=== PATIENT | male | born 1965 | race Caucasian/White ===

== ENCOUNTER 2019-03-07 07:25 | Day surgery (SDC) | payer BC ==
[~2019-03-07] VITALS: Ht 160 cm; Wt 85.0 kg
[~2019-03-07 07:25] MED LIST: BUPIVACAINE-EPI 0.5%-1:200000 MPF 30 ML VIAL. INJ ONE; HYDROmorphone 2 MG/ML VIAL IV PRN; MORPHINE SULFATE 2 MG/ML VIAL. IV PRN; ONDANSETRON PF 4 MG/2 ML VIAL. IV PRN; PROCHLORPERAZINE 10 MG/2 ML VIAL. IV PRN; fentaNYL PF VIAL 100 MCG/2 ML VIAL IV PRN
[2019-03-07] MEDS ORDERED: LIDOCAINE WITH 8.4% SOD BICARB 3 ML DISP.SYRIN. INJ ONE (08:00)
[2019-03-07] MEDS ORDERED: METF500T16 PO (08:11)
[2019-03-07] MEDS ORDERED: ATOR20TA58 PO (08:12)
[2019-03-07] MEDS ORDERED: IBUP-1027 PO (08:12)
[2019-03-07] MEDS ORDERED: ASPI-630 PO (08:12)
[2019-03-07] MEDS: IV RINGERS,LACTATED 1000ML 1,000 ML IV SCH ×2 (08:15→11:54)
[2019-03-07] MEDS ORDERED: INSULIN LISPRO 100 UNIT/ML 3ML VIAL for OP,RR ONLY. SQ PRN (08:15)
[2019-03-07] MEDS ORDERED: LIDOCAINE 2% PF 5 ML VIAL. ONE (09:05)
[2019-03-07] MEDS ORDERED: DEXAMETHASONE SOD PHOS 4 MG/ML VIAL ONE (09:05)
[2019-03-07] MEDS ORDERED: PROPOFOL 20 ML IV ONE (09:05)
[2019-03-07] MEDS ORDERED: ONDANSETRON PF 4 MG/2 ML VIAL. ONE (09:05)
[2019-03-07] MEDS ORDERED: fentaNYL PF VIAL 250 MCG/5 ML VIAL ONE (09:06)
[2019-03-07] MEDS ORDERED: ROCURONIUM 50 MG/5 ML VIAL. ONE (09:06)
[2019-03-07] MEDS ORDERED: ISOSULFAN BLUE 50 MG/5 ML VIAL. SQ ONE (09:21)
[2019-03-07] MEDS ORDERED: BUPIVACAINE-EPI 0.5%-1:200000 MPF 30 ML VIAL. INJ ONE (11:00)
[2019-03-07] MEDS ORDERED: SEVOFLURANE > 120 MINUTES. IH ONE (11:28)
[2019-03-07] MEDS ORDERED: NEOSTIGMINE METHYLSULFATE 5 MG/5 ML SYRINGE. ONE (11:37)
[2019-03-07] MEDS ORDERED: GLYCOPYRROLATE 1 MG/5 ML VIAL. ONE (11:38)
[2019-03-07] MEDS ORDERED: ceFAZolin 2GM PREMIX 2 GM/50 ML BAG IV ONE (12:00)
--- NOTE | 2019-03-07 12:05 | DISCH ---
DISCHARGE INSTRUCTIONS Condition on Discharge Condition on Discharge: Stable Activity After Discharge Activity Instructions for Disc: Activity as tolerated, Avoid exertion Lifting Instructions after Dis: No heavy lifting Driving Instructions after Dis: Do not drive today Diet after Discharge Diet after Discharge: Regular Wound Incision Care Wound/Incision Care: Ice to area for comfort Other wound/incision instructi: november shower Tuesday Follow-Up Follow up with: Abimael's office Tuesday with ROSA output report COLLINS MILAN MD Mar 07, 2019 12:05
--- NOTE | 2019-03-07 12:16 | PDOC ---
BRIEF OPERATIVE NOTE Date: Mar 07, 2019 Pre-Op Diagnosis melanoma Post-Op Diagnosis same Procedure Performed left axillary SLN biopsy wide excision left flank melanoma Surgeon Abimael Power Mule Operator Reta GUPTA Anesthesia Type: General Blood Loss 25cc IV Fluid 1500cc Specimens Obtained left axillary SLN, "hot" and blue, second LN, some axillary tissue wide excision left flank melanoma, suture at three o'clock Findings negative SLN Complications none Operative Note Wk # [id number] COLLINS MILAN MD Mar 07, 2019 12:16
[2019-03-07] MEDS ORDERED: HYDR-3164 PO (12:24)
[2019-03-07] MEDS ORDERED: DOCU-109 PO (12:24)
[2019-03-07] MEDS ORDERED: HYDROcodone/APAP 5/325MG 1 TAB TABLET PO ONE (12:30)
--- NOTE | 2019-03-07 12:31 | OP ---
DATE OF SURGERY: 03/07/2019 PREOPERATIVE DIAGNOSIS: Melanoma, left flank. POSTOPERATIVE DIAGNOSIS: Melanoma, left flank. PROCEDURES: 1. Left axillary sentinel lymph node biopsy. 2. Wide excision of left flank melanoma. SURGEON: Alverto Milan MD ETL DEVELOPER: CANDY Morales ANESTHESIA: General endotracheal. BLOOD LOSS: 25. INTRAVENOUS FLUIDS: 1500. INDICATIONS: The patient is a 53-year-old with a recent excision of a nodular melanoma, left flank. He is brought for wide excision and sentinel node biopsy. OPERATIVE REPORT: The patient went to Nuclear Medicine Department and underwent injection for sentinel node identification. Activity was seen in the left axilla. He was then brought to the OR, given a general anesthetic and rolled up on his right side. The area around the previous excision was prepped and 5 mL of Lymphazurin injected intradermally. The area gently massaged for 3 minutes. Back to supine, the left axilla was prepped and draped in usual sterile fashion. A 0.5% Marcaine with epinephrine was used to infiltrate the skin and subcutaneous tissue along the incision line after using the C-Trak to help localize the area of interest. Incision made and dissection carried down through some generous axillary tissue to a point where we identified a "hot" slightly blue node, which was harvested and sent for frozen section. A node of similar size that was not active or blue was sent prior to the sentinel node and it too was negative. Area checked for hemostasis. A 19-Italian round Armen drain brought through an inferolateral stab wound, sewn to the skin with silk stitch and left in the depths of the axilla for postoperative drainage. When a correct sponge count was obtained, the incision was closed with a subcuticular 4-0 Monocryl. Steri-Strips and a sterile dressing applied. The patient then placed in the lateral decubitus position and the left flank was prepped and draped in usual sterile fashion. A marking pen was used to outline the elliptical incision to allow for 2 cm margins around the process. The area was infiltrated with local anesthetic and incised. The skin, subcutaneous tissue down to the muscle was excised en bloc and marked with a stitch at 3 o'clock. When hemostasis was obtained, the wound was closed in layers using 3-0 Vicryl in the subcutaneous tissue, interrupted 3-0 and 4-0 Prolene sutures in the skin. Sterile dressing applied. The patient returned to supine, awakened from his anesthetic and taken to the recovery room in satisfactory condition. ALVERTO MILAN MD DR: PAVAN/rajesh JOB#: [id number] / [id number]
[2019-03-07] MEDS ORDERED: KETOROLAC 30 MG/ML VIAL. ONE (12:55)
[2019-03-07] MEDS ORDERED: KETOROLAC 15 MG/ML VIAL. IV ONE (13:00)
[2019-03-07] MEDS: fentaNYL PF VIAL 100 MCG/2 ML VIAL IV PRN ×2 (13:00→13:19)
[2019-03-07 13:30] VITALS: BP 129/71
--- NOTE | 2019-03-07 15:18 | RAD ---
Examination: SENTINEL NODE INJECTION History: Melanoma; left flank skin lesion Comparison/Correlation: None Findings: Cleansing with Betadine was performed about the left mid flank skin wound. A total of 0.8 mCi technetium 99m filtered sulfur colloid with 0.5 cc 1 percent buffered lidocaine was administered in nearly 4 equal portions about the wound intradermally. Imaging was then performed. Radiotracer accumulates of the left axillary level on a lateral image provided. Impression: Successful intradermal administration of radiotracer about the left flank skin wound. Radiotracer and calculation at the left lower axillary level noted. Electronically signed by: Neal Watkins MD (03/07/2019 3:15 PM) [facility]
--- NOTE | 2019-03-14 14:07 | PATHOLOGY ---
[facility] Accession Number: [id number] . 01 Material submitted: . PART A: lymph node - LEFT AXILLARY NODE,FS PART B: lymph node - LEFT AXILLARY SENTINEL NODE,FS PART C: lymph node - LEFT AXILLARY TISSUE PART D: flank - WIDE EXCISION MELANOMA LEFT FLANK SUTURE 3:00. Modifiers: left . 01 Clinical history: . Left flank melanoma . 02 Frozen section diagnosis: . INTRAOPERATIVE CONSULTATION WITH FROZEN SECTION: (Sunny Rene M.D.) . FSA1. Left axillary lymph node, excision: - Negative for tumor. . The results are reported to Dr. Varghese in the operating room. . FSB1. Left axillary sentinel node, excision: - Negative for tumor. . The results are reported to Dr. Varghese in the operating room. . . GROSS DESCRIPTION: A. The specimen is received fresh for intraoperative consultation and is designated "left axillary lymph node fresh for frozen". This consists of an ovoid segment of yellow-red, fatty appearing tissue measuring up to 3.0 x 2.1 x 1.2 cm in greatest dimension. Sectioning reveals a yellow, fatty appearing lymph node measuring up to nearly 3.0 cm in greatest dimension. There is a thin, peripheral rim of pink-thomas cortex. There is no gross evidence of tumor replacement. One-half of the lymph node is submitted for frozen section as FSA1. The tissue remaining from frozen section is submitted for permanent sections as A1. The remainder of the lymph node is submitted for microscopy as A2. . B. The specimen is received fresh for intraoperative consultation and is designated "left axillary sentinel lymph node". This consists of an ovoid segment of yellow-red, fatty tissue measuring up to 3.0 x 2.0 x 1.2 cm in greatest dimension. Sectioning reveals a fatty lymph node measuring up to 1.9 cm in greatest dimension having a thin rim of pink-moreau cortex. There is no gross evidence of tumor replacement. One-half of the specimen is submitted for frozen section as FSB1. The tissue remaining from frozen section is submitted for permanent sections as B1. The remainder of the lymph node is submitted for microscopy as B2. (JPM/db; 03/07/2019) . Frozen section performed at [facility], [address] [place] [id number]. GAURAV/LULU . 02 Diagnosis: A. Lymph node, left axillary lymph node, excision: - Negative for tumor. . B. Lymph node, left axillary sentinel node, excision: - Negative for tumor. . C. Lymph nodes (3), left axilla: - Negative for tumor. . D. Skin and subcutaneous tissue, left flank wide excision: - No residual invasive malignant melanoma or melanoma in situ identified. - Margins of excision free of neoplasm. - Healing previous excision site showing depressed area of ulceration with granulation tissue and acute inflammation, and reactive fibrosis, subcutaneous fat necrosis, chronic inflammation, and foreign body giant cell and suture granulomatous reaction. . (JPM:franky/jamil; 03/14/2019) [facility]/03/14/2019 . 02 Comment: Sections of the left axillary node (A) and left axillary sentinel node (B) biopsies are examined at multiple levels. In addition, a battery of immunoperoxidase stains to rule out metastatic melanoma are obtained on each of the nodes and yield the following results: S-100 (A1): Negative for tumor. MART1 (A1): Negative for tumor. Pelaez mike red (A1): Negative for tumor. . S-100 (A2): Reticulum cells focally positive; negative for tumor. MART1 (A2): Negative for tumor. Pelaez mike red (A2): Negative for tumor. . S-100 (B1): Negative for tumor. MART1 (B1): Negative for tumor. Pelaez mike red (B1): Negative for tumor. . S-100 (B2): Reticulum cells focally positive; negative for tumor. MART1 (B2): Negative for tumor. Pelaez mike red (B2): Negative for tumor. . In addition, sections of left axillary tissue (C) reveal 3 additional lymph nodes, all of which are negative for tumor. . Thus, there are a total of 5 axillary lymph nodes which are negative for metastatic melanoma. . Sections of the left flank wide re-excision reveal a healing previous excision site. There is no residual invasive malignant melanoma or melanoma in situ. The margins of excision are free of neoplasm. (JPM:jamil; 03/14/2019) . Special stains performed: Immunoperoxidase stains for S-100, MART1, pelaez mike red on A1. Immunoperoxidase stains for S-100, MART1, pelaez mike red on A2. Immunoperoxidase stains for S-100, MART1, pelaez mike red on B1. Immunoperoxidase stains for S-100, MART1, pelaez mike red on B2. . 02 Electronically signed: . Calixto Rene MD, Pathologist NPI- [id number] . 01 Gross description: . A and B. SEE FROZEN SECTION GROSS DESCRIPTION. . C. The specimen is received in formalin, labeled "Isiah Quintanilla, left axillary tissue". Received are multiple segments of bright yellow lobulated tissue measuring 7.7 x 5.6 x 2.8 cm in aggregate dimensions. Dissection and palpation of the specimen reveals three possible lymph nodes ranging in size from 0.5 to 1.4 cm in maximum dimensions. The possible lymph nodes are submitted as follows: . C1 two intact possible lymph nodes C2 one bisected lymph node. . D. The specimen is received in formalin, labeled "Isiah Quintanilla, wide excision melanoma left flank, suture 3:00". Received is an oriented ellipse of skin with attached underlying fibroadipose tissue measuring 10.5 x 6.7 x 4.1 cm in greatest dimensions with a suture placed at one tip designating this as the 3:00 margin. The surgical margins are inked as follows: 12 to 3:00-yellow, 3 to 9:00, as well as the deep margin-black, and 9 to 12:00-blue. The epidermal surface displays a well-circumscribed, depressed, flaky and pale thomas to moreau-thomas previous biopsy site measuring 3.0 x 1.1 cm. This site is 2.0 cm from the 12:00 margin, 4.1 cm from the 3:00 margin, 1.8 cm from the 6:00 margin, and 3.5 cm from the 9:00 margin. At the 12:00 aspect, there is a secondary lesion which is well-circumscribed, slightly raised and pale pink measuring 0.3 x 0.2 cm, which is 0.2 cm from the peripheral margin. Sectioning through the remainder of the specimen reveals bright yellow to blue cut surfaces. A large amount of residual blue dye is present. Abnormal pigmentation is not grossly identified. The specimen is submitted representatively as follows: . D1 longitudinal section through 3:00 and 9:00 aspect D-D17 entire previous biopsy site submitted from 3:00 to 9:00 aspects, with each segment eventually bisected into 12:00 and 6:00 aspects D18 secondary lesion near 12:00 aspect. (CAA; 03/08/2019) QAC/QAC . 02 Pathologist provided ICD-10: C43.59, L08.9, L98.499, L90.5 . 02 CPT . 616563, 176742, 602986, 294579, 523104, 090226, [id number], [id number] Specimen Comment: A courtesy copy of this report has been sent to Specimen Comment: [phone], . Specimen Comment: Report sent to and Performed at: 01 [facility] [address], [place], [place] [id number] MD Bjorn Puga MD Phone: [phone] Performed at: 02 [facility] [address] [place], [place] [id number] MD Calixto Rene MD Phone: [phone]
== END 2019-03-07 14:12 | disposition home or self-care (01) ==
LOC: SURG 07:25
PROVIDERS: ATTEND Surgery
DX: C43.59 Malignant melanoma of other part of trunk (principal); R59.1 Generalized enlarged lymph nodes; E11.9 Type 2 diabetes mellitus without complications; E78.5 Hyperlipidemia, unspecified; G47.30 Sleep apnea, unspecified; Z79.899 Other long term (current) drug therapy; Z79.84 Long term (current) use of oral hypoglycemic drugs
CPT/HCPCS: 11602; 12031; 38525; 38792; 82962; 96374; A7015; A9541; J0696; J1100; J1885; J2001; J2405; J2704; J2710; J3010; J3490; J7120; Q9968

== ENCOUNTER 2019-11-21 20:31 | Inpatient (IN) | payer BC ==
[~2019-11-21] VITALS: Ht 160 cm; Wt 79.4 kg
[~2019-11-21 20:31] MED LIST changes: +ASPI-630 PO; +ATOR20TA58 PO; -BUPIVACAINE-EPI 0.5%-1:200000 MPF 30 ML VIAL. INJ ONE; +DOCU-109 PO; +HYDR-3164 PO; -HYDROmorphone 2 MG/ML VIAL IV PRN; +IBUP-1027 PO; +METF500T16 PO; -MORPHINE SULFATE 2 MG/ML VIAL. IV PRN; -ONDANSETRON PF 4 MG/2 ML VIAL. IV PRN; -PROCHLORPERAZINE 10 MG/2 ML VIAL. IV PRN; -fentaNYL PF VIAL 100 MCG/2 ML VIAL IV PRN
--- NOTE | 2019-11-21 21:27 | PHYS DOC ---
Past Medical History Past Medical History: Diabetes-Type II Smoking Status: Never Smoker Alcohol Use: None General Adult EDM: Chief Complaint: FLANK PAIN HPI: HPI: Patient is a 54 year old male who presents with complaint of right flank pain that started yesterday. Patient was seen at urgent care earlier today and they told him that they thought it could be a kidney stone. When asked where he has the pain, patient points to his lateral hip around the greater trochanter. He rates the pain is bad but is unable to attach a number to the pain. [] Review of Systems: Review of Systems: Constitutional: Denies fever or chills. [] Respiratory: Denies cough or shortness of breath. [] Cardiovascular: Denies chest pain or edema. [] GI: Denies abdominal pain, nausea, vomiting or diarrhea. [] Musculoskeletal: Complains of right flank/hip pain. [] Integument: Denies rash. [] Neurologic: Denies headache, focal weakness or sensory changes. [] A full 10 point review of systems has been reviewed and is otherwise negative. Heart Score: Risk Factors: Risk Factors: DM, Current or recent (<one month) smoker, HTN, HLP, family history of CAD, obesity. Risk Scores: Score 0 - 3: 2.5% MACE over next 6 weeks - Discharge Home Score 4 - 6: 20.3% MACE over next 6 weeks - Admit for Clinical Observation Score 7 - 10: 72.7% MACE over next 6 weeks - Early Invasive Strategies Current Medications: Current Medications Medications (Trade) Dose Ordered Sig/Gonzalo Start Time Stop Time Status Last Admin Dose Admin Ondansetron HCl (Zofran) 4 mg 1X ONCE 11/21/19 21:30 11/21/19 21:31 UNV Sodium Chloride 1,000 ml @ 1,000 mls/hr Q1H 11/21/19 21:18 11/21/19 22:17 UNV Allergies: Allergies: Allergies Coded Allergies Type Severity Reaction Last Updated Verified No Known Drug Allergies 03/07/19 No Physical Exam: PE: Constitutional: Well developed, well nourished, no acute distress, non-toxic appearance. [] HENT: Normocephalic, atraumatic, bilateral external ears normal, oropharynx moist, no oral exudates, nose normal. [] Eyes: PERRLA, EOMI, conjunctiva normal, no discharge. [] Neck: Normal range of motion, no tenderness, supple. [] Cardiovascular: Regular rate and rhythm [] Lungs & Thorax: Bilateral breath sounds clear to auscultation [] Abdomen: Bowel sounds normal, soft, no tenderness. [] Skin: Warm, dry, no erythema, no rash. [] Extremities: No tenderness, no cyanosis, no clubbing, ROM intact. [] Neurologic: Alert and oriented X 3, no focal deficits noted. [] Current Patient Data: Vital Signs: Vital Signs Date Time Temp Pulse Resp B/P (MAP) Pulse Ox O2 Delivery O2 Flow Rate FiO2 11/21/19 20:45 98.1 82 24 132/87 (102) 94 Room Air 98.1 EKG: EKG: [] Radiology/Procedures: Radiology/Procedures: [] Impression: PROCEDURE: CT ABDOMEN PELVIS WO CONTRAST INDICATION: Right flank pain COMPARISON: None. TECHNIQUE: Axial CT images obtained through the abdomen and pelvis without contrast. Limited assessment of solid organ structures and vasculature secondary to lack of intravenous contrast.. One or more of the following individualized dose reduction techniques were utilized for this examination: 1. Automated exposure control; 2. Adjustment of the mA and/or kV according to patient size; 3. Use of iterative reconstruction technique. FINDINGS: Multiple bilateral lung base masses are identified. For example one of the largest 1's at the right lung base measures up to 18 mm and one of the largest 1's at the left lung base measures 14 mm. Abdominal aorta is not aneurysmal. Small fat-containing left greater than right inguinal hernia. Limited assessment of solid organ structures and vasculature but there is diffuse heterogeneity of the liver with numerous low-density masses seen scattered throughout both lobes of the liver with the liver appearing enlarged. Pancreas not well evaluated without contrast. Spleen does not appear grossly enlarged. Left adrenal nodules measuring up to about 2 cm. There is a couple of 1 mm calcifications at the left kidney which could be from nonobstructive stones. No left-sided hydronephrosis. Urinary bladder partially distended at time of exam with calcification along the anterior wall. No right-sided hydronephrosis. Colonic diverticulosis. There is some high density material in the appendix which could be from appendicoliths without evidence of appendiceal inflammation. No dilated loops of bowel to suggest obstruction. Lymphadenopathy within the upper abdomen most severe within the retroperitoneum. For example right suprarenal region posterior to the inferior vena cava there is a mass measuring up to about 3.5 cm. There are several additional masses including adjacent to the pancreas. Multiple lytic lesions are identified within the osseous structures. This includes within the spine including at L4 and L5 where there is a destructive lesion at L4 measuring up to about 3.3 cm with associated compression fracture and additional lytic lesion measuring approximately 2 cm at L5. Mild compression fracture at T12 vertebral body. IMPRESSION: * Multiple masses at the bilateral lung bases as well as numerous masses within the liver, lymphadenopathy within the abdomen as well as multiple lesions within the osseous structures. This constellation of findings is concerning for metastatic disease. There is associated pathologic compression fracture at the L4 vertebral body. There are some additional regions of patchy osseous demineralization including within the pelvis and bilateral femur as well as elsewhere within the spine. Portions of this could be secondary to osteopenia however given the widespread lesions elsewhere additional tumor deposits could be contributing to this appearance including within the right acetabular region where there is a lytic area measuring up to about 25 mm which could be from additional tumor deposits. Report called to the ER at 10:04 PM on date of exam. Electronically signed by: Birdie Leos MD (11/21/2019 10:10 PM) [id number] DICTATED and SIGNED BY: BIRDIE LEOS MD DATE: 11/21/192209 Course & Med Decision Making: Course & Med Decision Making Pertinent Labs and Imaging studies reviewed. (See chart for details) [] Dragon Disclaimer: Dragon Disclaimer: This electronic medical record was generated, in whole or in part, using a voice recognition dictation system. Departure Departure Impression: Primary Impression: Compression fracture of L4 vertebra Qualified Codes: S32.040A - Wedge compression fracture of fourth lumbar vertebra, initial encounter for closed fracture Additional Impressions: Metastatic neoplastic disease Right flank pain Low back pain Qualified Codes: M54.5 - Low back pain Disposition: 09 ADMITTED INPATIENT Admitting Physician: HIMS Condition: IMPROVED Referrals: PAULINE MURILLO MD (PCP) ALEJANDRO STAFFORD Jr. DO November 21, 2019 21:27
[2019-11-21 21:29] LABS: BILIRUBIN,URINE NEGATIVE (NEG); CLARITY,URINE CLEAR; COLOR,URINE YELLOW; NITRITE,URINE NEGATIVE (NEG); PROTEIN,URINE 30 mg/dL (NEG-TRACE)
[2019-11-21] MEDS ORDERED: ONDANSETRON PF 4 MG/2 ML VIAL. IVP ONE (21:30)
[2019-11-21] MEDS ORDERED: KETOROLAC 30 MG/ML VIAL. IVP ONE (21:30)
[2019-11-21] MEDS ORDERED: IV NORMAL SALINE 1000ML BAG 1,000 ML IV SCH (21:30)
[2019-11-21 21:32] LABS: SQUAMOUS EPITHELIAL CELL,UR OCC /LPF
[2019-11-21 21:33] LABS: BACTERIA,URINE 0 /HPF (0-FEW); SPERM,URINE PRESENT /HPF; WBC,URINE 0 /HPF (0-4)
[2019-11-21 21:45] LABS: BASO % 1 % (0-3); EOS # 0.1 x10^3/uL (0.0-0.7); EOS % 1 % (0-3); HEMATOCRIT 38.9 % (39.0-53.0); HEMOGLOBIN 13.1 g/dL (13.0-17.5); LYMPH # 0.9 x10^3/uL (1.0-4.8); LYMPH % 13 % (24-48); MEAN CORPUSCULAR HEMOGLOBIN 30 pg (25-35); MEAN CORPUSCULAR HGB CONC 34 g/dL (31-37); MEAN CORPUSCULAR VOLUME 88 fL (79-100); MONO # 0.6 x10^3/uL (0.0-1.1); MONO % 9 % (0-9); NEUT # 5.3 x10^3/uL (1.8-7.7); NEUT % 77 % (31-73); PLATELET COUNT 364 x10^3/uL (140-400); RED BLOOD COUNT 4.45 x10^6/uL (4.30-5.70); RED CELL DISTRIBUTION WIDTH 13.5 % (11.5-14.5); WHITE BLOOD COUNT 6.9 x10^3/uL (4.0-11.0)
[2019-11-21 21:57] LABS: CALCIUM 8.3 mg/dL (8.5-10.1); CREATININE 0.7 mg/dL (0.7-1.3); GFR 117.5; POTASSIUM 3.3 mmol/L (3.5-5.1)
[2019-11-21 22:03] LABS: ALBUMIN 2.9 g/dL (3.4-5.0); ALBUMIN/GLOBULIN RATIO 0.7 (1.0-1.7); TOTAL BILIRUBIN 0.4 mg/dL (0.2-1.0)
--- NOTE | 2019-11-21 22:14 | RAD ---
INDICATION: Right flank pain COMPARISON: None. TECHNIQUE: Axial CT images obtained through the abdomen and pelvis without contrast. Limited assessment of solid organ structures and vasculature secondary to lack of intravenous contrast.. One or more of the following individualized dose reduction techniques were utilized for this examination: 1. Automated exposure control; 2. Adjustment of the mA and/or kV according to patient size; 3. Use of iterative reconstruction technique. FINDINGS: Multiple bilateral lung base masses are identified. For example one of the largest 1's at the right lung base measures up to 18 mm and one of the largest 1's at the left lung base measures 14 mm. Abdominal aorta is not aneurysmal. Small fat-containing left greater than right inguinal hernia. Limited assessment of solid organ structures and vasculature but there is diffuse heterogeneity of the liver with numerous low-density masses seen scattered throughout both lobes of the liver with the liver appearing enlarged. Pancreas not well evaluated without contrast. Spleen does not appear grossly enlarged. Left adrenal nodules measuring up to about 2 cm. There is a couple of 1 mm calcifications at the left kidney which could be from nonobstructive stones. No left-sided hydronephrosis. Urinary bladder partially distended at time of exam with calcification along the anterior wall. No right-sided hydronephrosis. Colonic diverticulosis. There is some high density material in the appendix which could be from appendicoliths without evidence of appendiceal inflammation. No dilated loops of bowel to suggest obstruction. Lymphadenopathy within the upper abdomen most severe within the retroperitoneum. For example right suprarenal region posterior to the inferior vena cava there is a mass measuring up to about 3.5 cm. There are several additional masses including adjacent to the pancreas. Multiple lytic lesions are identified within the osseous structures. This includes within the spine including at L4 and L5 where there is a destructive lesion at L4 measuring up to about 3.3 cm with associated compression fracture and additional lytic lesion measuring approximately 2 cm at L5. Mild compression fracture at T12 vertebral body. IMPRESSION: * Multiple masses at the bilateral lung bases as well as numerous masses within the liver, lymphadenopathy within the abdomen as well as multiple lesions within the osseous structures. This constellation of findings is concerning for metastatic disease. There is associated pathologic compression fracture at the L4 vertebral body. There are some additional regions of patchy osseous demineralization including within the pelvis and bilateral femur as well as elsewhere within the spine. Portions of this could be secondary to osteopenia however given the widespread lesions elsewhere additional tumor deposits could be contributing to this appearance including within the right acetabular region where there is a lytic area measuring up to about 25 mm which could be from additional tumor deposits. Report called to the ER at 10:04 PM on date of exam. Electronically signed by: Vazquez Leos MD (11/21/2019 10:10 PM) [id number]
[2019-11-21] MEDS ORDERED: ONDANSETRON PF 4 MG/2 ML VIAL. IV PRN (23:30)
--- NOTE | 2019-11-22 00:42 | NUR ---
The patient, DAFNE ALLEN, 54 y/o, M admitted by FITZ ISRAEL MD, was given written information regarding hospital policies, unit procedures and contact persons. Valuables were checked and vital signs stable. Report taken from Shae CATHERINE
[2019-11-22 03:00] VITALS: BP 132/95
[2019-11-22] MEDS: MORPHINE SULFATE 4 MG/ML VIAL. IV PRN (04:51)
[2019-11-22] MEDS ORDERED: DEXTROSE 50% 25 GM / 50ML DISP.SYRIN. IV PRN (06:00)
[2019-11-22 07:00] VITALS: BP 103/77
[2019-11-22] MEDS: HYDROcodone/APAP 5/325MG 1 TAB TABLET PO PRN ×4 (07:22→20:49)
[2019-11-22] MEDS: INSULIN LISPRO 300 UNITS/3 ML VIAL. SQ SCH ×4 (07:30→20:50)
--- NOTE | 2019-11-22 08:00 | NUR ---
assumed care from Lisandra. he is complaining of pain in his right flank area. denies abdominal; pain or pain in other areas. states pain pill helped. his sister in law; Dilcia spoke with him and Dr. Fairchild regarding plan of care; biopsy
[2019-11-22] MEDS: fentaNYL 12MCG/HR PATCH 1 PATCH PATCH.TD72 TD SCH (08:28)
[2019-11-22] MEDS: DOCUSATE SODIUM 100 MG CAPSULE. PO SCH ×2 (08:28→20:49)
[2019-11-22] MEDS: ASPIRIN CHEWABLE 81 MG TABLET. PO SCH (08:28)
--- NOTE | 2019-11-22 09:39 | PDOC1 ---
History and Physical Date of Admission Date of Admission DATE: 11/22/19 TIME: 09:23 Identification/Chief Complaint Chief Complaint flank pain and back pain Problems: (1) Compression fracture of L4 vertebra (2) Metastatic neoplastic disease (3) Right flank pain (4) Low back pain Source Source: Chart review, Patient History of Present Illness History of Present Illness This is a 54 year old CM hx of DM, HLD who presents with left sided flank pain and back pain that started days ago. seen by urgent care today and thought to be a kidney stone, asked to come to ED for evaluation. patient reports more lateral hip pain. denies any other complaints. no chest pain, sob nausea vomiting diarrhea. no fevers weight loss, respiratory symptoms, neurological symptoms. states he feels better after pain meds. denies smoking drugs or etoh. unclear of when he last had colo screening, does not know family hx of cancer. in the ED patient had the CT abdomen and pelvis done which revealed the following: Multiple masses at the bilateral lung bases as well as numerous masses within the liver, lymphadenopathy within the abdomen as well as multiple lesions within the osseous structures. This constellation of findings is concerning for metastatic disease. There is associated pathologic compression fracture at the L4 vertebral body. There are some additional regions of patchy osseous demineralization including within the pelvis and bilateral femur as well as elsewhere within the spine. Portions of this could be secondary to osteopenia however given the widespread lesions elsewhere additional tumor deposits could be contributing to this appearance including within the right acetabular region where there is a lytic area measuring up to about 25 mm which could be from additional tumor deposits. hospitalist called for admission and further evaluation. Past Medical History Past Medical History dm, hld Past Surgical History Past Surgical History denies Family History Family History reviewed and denies Social History Smoke: No ALCOHOL: none Drugs: None Current Problem List Problem List Problems Medical Problems: (1) Compression fracture of L4 vertebra Status: Acute (2) Low back pain Status: Acute (3) Metastatic neoplastic disease Status: Acute (4) Right flank pain Status: Acute Current Medications Current Medications Current Medications Sodium Chloride 1,000 ml @ 1,000 mls/hr Q1H IV Last administered on 11/21/19at 21:54; Start 11/21/19 at 21:30; Stop 11/21/19 at 22:29; Status DC Ondansetron HCl (Zofran) 4 mg 1X ONCE IVP Last administered on 11/21/19at 21:54; Start 11/21/19 at 21:30; Stop 11/21/19 at 21:31; Status DC Ketorolac Tromethamine (Toradol 30mg Vial) 30 mg 1X ONCE IVP Last administered on 11/21/19at 21:55; Start 11/21/19 at 21:30; Stop 11/21/19 at 21:31; Status DC Ondansetron HCl (Zofran) 4 mg PRN Q8HRS PRN IV NAUSEA/VOMITING; Start 11/21/19 at 23:30; Stop 11/22/19 at 06:04; Status DC Morphine Sulfate (Morphine Sulfate) 4 mg PRN Q2HR PRN IV PAIN Last administered on 11/22/19at 04:51; Start 11/21/19 at 23:30 Ondansetron HCl (Zofran) 4 mg PRN Q4HRS PRN IV NAUSEA/VOMITING; Start 11/22/19 at 06:00 Aspirin (Aspirin Chewable) 81 mg DAILYWBKFT PO Last administered on 11/22/19at 08:28; Start 11/22/19 at 08:00 Atorvastatin Calcium (Lipitor) 20 mg HS PO ; Start 11/22/19 at 21:00 Docusate Sodium (Colace) 100 mg BID PO Last administered on 11/22/19at 08:28; Start 11/22/19 at 09:00 Acetaminophen/ Hydrocodone Bitart (Lortab 5/325) 1 tab PRN Q4HRS PRN PO MODERATE PAIN 4-6 Last administered on 11/22/19at 07:22; Start 11/22/19 at 06:00 Ibuprofen (Motrin) 400 mg PRN Q6HRS PRN PO INFLAMMATION; Start 11/22/19 at 06:00 Fentanyl (Duragesic 12mcg/ Hr Patch) 1 patch Q3DAYS TD Last administered on 11/22/19at 08:28; Start 11/22/19 at 09:00 Enoxaparin Sodium (Lovenox 40mg Syringe) 40 mg Q24H SQ Last administered on 11/22/19at 08:35; Start 11/22/19 at 10:00 Insulin Human Lispro (HumaLOG) 0-7 UNITS TIDACHC SQ ; Start 11/22/19 at 07:30 Dextrose (Dextrose 50%-Water Syringe) 12.5 gm PRN Q15MIN PRN IV SEE COMMENTS; Start 11/22/19 at 06:00 Active Scripts Active Reported Colace (Docusate Sodium) 100 Mg Capsule 1 Cap PO BID [place] 5-325 Tablet (Acetaminophen/Hydrocodone Bitart) 1 Each Tablet 1 Tab PO Q4- 6HRS Ibuprofen 400 Mg Tablet 400 Mg PO PRN Q6HRS PRN Atorvastatin Calcium 20 Mg Tablet 1 Tab PO DAILY Aspirin 81 Mg Tab.chew 1 Tab PO DAILY Metformin Hcl 500 Mg Tablet 500 Mg PO BIDWMEALS Allergies Allergies: Coded Allergies: No Known Drug Allergies (Unverified , 03/07/19) ROS Review of System CONSTITUTIONAL: No fever or chills EYES: No recent changes SKIN: No rash or itching CARDIOVASCULAR: No chest pain, syncope, palpitations, or edema RESPIRATORY: No SOB or cough GASTROINTESTINAL: No nausea, vomiting or abdominal pain NEUROLOGICAL: No headaches or weakness ENDOCRINE: No cold or heat intolerance GENITOURINARY: No urgency or frequency of urination MUSCULOSKELETAL: No back pain or joint pain LYMPHATICS: No enlarged lymph nodes PSYCHIATRIC: No anxiety or depression Physical Exam Physical Exam GENERAL: No apparent distress. Alert and oriented. HEENT: Head normocephalic, atraumatic. NECK: Supple LUNGS: Clear to auscultation. HEART: RRR, S1, S2 present, pulses intact ABDOMEN: Soft, positive bowel sounds. EXTREMITIES: No cyanosis or edema. NEUROLOGIC: Normal speech, normal tone PSYCHIATRIC: Normal affect, normal mood. SKIN: No ulceration. Vitals Vitals Vital Signs Date Time Temp Pulse Resp B/P (MAP) Pulse Ox O2 Delivery O2 Flow Rate FiO2 11/22/19 08:38 Room Air 11/22/19 08:30 91 11/22/19 07:00 97.7 65 18 103/77 (86) 97.7 Labs Labs Laboratory Tests Test 11/21/19 20:35 11/21/19 21:35 11/22/19 07:50 Urine Collection Type Unknown Urine Color Yellow Urine Clarity Clear Urine pH 7.0 (<5.0-8.0) Urine Specific [place] 1.015 (1.000-1.030) Urine Protein 30 mg/dL (NEG-TRACE) Urine Glucose (UA) Negative mg/dL (NEG) Urine Ketones (Stick) Negative mg/dL (NEG) Urine Blood Small (NEG) Urine Nitrite Negative (NEG) Urine Bilirubin Negative (NEG) Urine Urobilinogen Dipstick 4.0 mg/dL (0.2 mg/dL) Urine Leukocyte Esterase Negative (NEG) Urine RBC 6-10 /HPF (0-2) Urine WBC 0 /HPF (0-4) Urine Squamous Epithelial Cells Occ /LPF Urine Bacteria 0 /HPF (0-FEW) Urine Mucus Slight /LPF Urine Sperm Present /HPF White Blood Count 6.9 x10^3/uL (4.0-11.0) Red Blood Count 4.45 x10^6/uL (4.30-5.70) Hemoglobin 13.1 g/dL (13.0-17.5) Hematocrit 38.9 % (39.0-53.0) Mean Corpuscular Volume 88 fL (79-100) Mean Corpuscular Hemoglobin 30 pg (25-35) Mean Corpuscular Hemoglobin Concent 34 g/dL (31-37) Red Cell Distribution Width 13.5 % (11.5-14.5) Platelet Count 364 x10^3/uL (140-400) Neutrophils (%) (Auto) 77 % (31-73) Lymphocytes (%) (Auto) 13 % (24-48) Monocytes (%) (Auto) 9 % (0-9) Eosinophils (%) (Auto) 1 % (0-3) Basophils (%) (Auto) 1 % (0-3) Neutrophils # (Auto) 5.3 x10^3/uL (1.8-7.7) Lymphocytes # (Auto) 0.9 x10^3/uL (1.0-4.8) Monocytes # (Auto) 0.6 x10^3/uL (0.0-1.1) Eosinophils # (Auto) 0.1 x10^3/uL (0.0-0.7) Basophils # (Auto) 0.0 x10^3/uL (0.0-0.2) Sodium Level 134 mmol/L (136-145) Potassium Level 3.3 mmol/L (3.5-5.1) Chloride Level 97 mmol/L (98-107) Carbon Dioxide Level 30 mmol/L (21-32) Anion Gap 7 (6-14) Blood Urea Nitrogen 26 mg/dL (8-26) Creatinine 0.7 mg/dL (0.7-1.3) Estimated GFR (Cockcroft-Gault) 117.5 BUN/Creatinine Ratio 37 (6-20) Glucose Level 149 mg/dL (70-99) Calcium Level 8.3 mg/dL (8.5-10.1) Total Bilirubin 0.4 mg/dL (0.2-1.0) Aspartate Amino Transf (AST/SGOT) 81 U/L (15-37) Alanine Aminotransferase (ALT/SGPT) 88 U/L (16-63) Alkaline Phosphatase 232 U/L (46-116) Total Protein 7.0 g/dL (6.4-8.2) Albumin 2.9 g/dL (3.4-5.0) Albumin/Globulin Ratio 0.7 (1.0-1.7) Glucose (Fingerstick) 101 mg/dL (70-99) Laboratory Tests Test 11/21/19 20:35 11/21/19 21:35 11/22/19 07:50 Urine Collection Type Unknown Urine Color Yellow Urine Clarity Clear Urine pH 7.0 (<5.0-8.0) Urine Specific [place] 1.015 (1.000-1.030) Urine Protein 30 mg/dL (NEG-TRACE) Urine Glucose (UA) Negative mg/dL (NEG) Urine Ketones (Stick) Negative mg/dL (NEG) Urine Blood Small (NEG) Urine Nitrite Negative (NEG) Urine Bilirubin Negative (NEG) Urine Urobilinogen Dipstick 4.0 mg/dL (0.2 mg/dL) Urine Leukocyte Esterase Negative (NEG) Urine RBC 6-10 /HPF (0-2) Urine WBC 0 /HPF (0-4) Urine Squamous Epithelial Cells Occ /LPF Urine Bacteria 0 /HPF (0-FEW) Urine Mucus Slight /LPF Urine Sperm Present /HPF White Blood Count 6.9 x10^3/uL (4.0-11.0) Red Blood Count 4.45 x10^6/uL (4.30-5.70) Hemoglobin 13.1 g/dL (13.0-17.5) Hematocrit 38.9 % (39.0-53.0) Mean Corpuscular Volume 88 fL (79-100) Mean Corpuscular Hemoglobin 30 pg (25-35) Mean Corpuscular Hemoglobin Concent 34 g/dL (31-37) Red Cell Distribution Width 13.5 % (11.5-14.5) Platelet Count 364 x10^3/uL (140-400) Neutrophils (%) (Auto) 77 % (31-73) Lymphocytes (%) (Auto) 13 % (24-48) Monocytes (%) (Auto) 9 % (0-9) Eosinophils (%) (Auto) 1 % (0-3) Basophils (%) (Auto) 1 % (0-3) Neutrophils # (Auto) 5.3 x10^3/uL (1.8-7.7) Lymphocytes # (Auto) 0.9 x10^3/uL (1.0-4.8) Monocytes # (Auto) 0.6 x10^3/uL (0.0-1.1) Eosinophils # (Auto) 0.1 x10^3/uL (0.0-0.7) Basophils # (Auto) 0.0 x10^3/uL (0.0-0.2) Sodium Level 134 mmol/L (136-145) Potassium Level 3.3 mmol/L (3.5-5.1) Chloride Level 97 mmol/L (98-107) Carbon Dioxide Level 30 mmol/L (21-32) Anion Gap 7 (6-14) Blood Urea Nitrogen 26 mg/dL (8-26) Creatinine 0.7 mg/dL (0.7-1.3) Estimated GFR (Cockcroft-Gault) 117.5 BUN/Creatinine Ratio 37 (6-20) Glucose Level 149 mg/dL (70-99) Calcium Level 8.3 mg/dL (8.5-10.1) Total Bilirubin 0.4 mg/dL (0.2-1.0) Aspartate Amino Transf (AST/SGOT) 81 U/L (15-37) Alanine Aminotransferase (ALT/SGPT) 88 U/L (16-63) Alkaline Phosphatase 232 U/L (46-116) Total Protein 7.0 g/dL (6.4-8.2) Albumin 2.9 g/dL (3.4-5.0) Albumin/Globulin Ratio 0.7 (1.0-1.7) Glucose (Fingerstick) 101 mg/dL (70-99) VTE Prophylaxis Ordered VTE Prophylaxis Devices: Yes VTE Pharmacological Prophylaxi: Yes Assessment/Plan Assessment/Plan ASSESSMENT Metastatic Cancer, unknown primary at this point. noted multile Multiple masses at the bilateral lung bases as well as numerous masses within the liver, lymphadenopathy within the abdomen as well as multiple lesions within the osseous structures. Pathologic compression fracture at the L4 vertebral body. DM2, non insulin dependent HLD, on statin therapy Pain secondary to bone mets Hypokalemia Hyponatremia Elevated LFTs PLAN - admit to medical floor - check MRI brain, CT chest, CT cervical, lumbar and thoracic spine - check CEA, PSA, CA19-9 - unclear who is on for oncology, will consult - IR consult placed for bx - stop statin given elevated LFTs - SSI - hold ASA, no cardiac hx. likely will need bx for tissue diagnosis - IV and PO pain meds available - attempted to call Dilcia per patient's request but no answer. her number is [phone] - dvt ppx: lovenox - FULL CODE Problem Qualifiers (1) Compression fracture of L4 vertebra: Encounter type: initial encounter Qualified Codes: S32.040A - Wedge compression fracture of fourth lumbar vertebra, initial encounter for closed fracture (2) Low back pain: Chronicity: unspecified Back pain laterality: right Sciatica presence: without sciatica Qualified Codes: M54.5 - Low back pain RIC JANE MD November 22, 2019 09:38
[2019-11-22] MEDS ORDERED: ENOXAPARIN 40 MG/0.4 ML SYRINGE. SQ SCH (10:00)
[2019-11-22 11:06] LABS: PROTHROMBIN TIME PATIENT 13.3 SEC (11.7-14.0)
--- NOTE | 2019-11-22 11:08 | NUR ---
SW following. Discussed with RN, pt from home alone, room air, regular diet. Possibility of a biopsy - Dr. Preston consulted. SW will continue to follow.
[2019-11-22 11:16] VITALS: BP 124/77
--- NOTE | 2019-11-22 12:14 | RAD ---
EXAM: CT Chest without IV contrast INDICATION: Metastatic cancer TECHNIQUE: Multi-detector row CT images were acquired from the thoracic inlet through the upper abdomen without the use of IV contrast. Sagittal and coronal images were acquired from the transaxial data. All CT scans performed at this facility utilize dose optimization techniques as appropriate to the exam, including the following: Automated exposure control and adjustment of the mA and/or KV according to patient size (this includes techniques or standardized protocols for targeted exams where dose is indication/reason for exam). COMPARISON: CT abdomen and pelvis without IV contrast of the previous day FINDINGS: The absence of IV contrast limits evaluation of soft tissue pathology. CARDIOVASCULAR: Unremarkable MEDIASTINUM & SHARON: Multiple mildly enlarged mediastinal lymph nodes are present including 9 mm short axis right lower paratracheal lymph node and 1.2 cm short axis subcarinal node. LUNGS: Numerous round nodules are present in both lungs in random distribution, largest in the right lower lobe measures 1.8 cm in diameter. PLEURAL SPACE: No pleural effusions or pneumothorax. OSSEOUS & SOFT TISSUE: Large left axillary mass measuring 3.8 cm likely represent an enlarged level 1 left axillary lymph node. ABDOMEN: Numerous hepatic hypodense masses in upper abdominal retroperitoneal and periportal adenopathy is present, evaluated in greater detail on previous day abdomen CT. IMPRESSION: Extensive anthony and pulmonary parenchymal metastatic disease. EXAM: CT Cervical Spine without IV contrast INDICATION: Metastatic cancer TECHNIQUE: Multi-detector row CT images were obtained through the cervical spine without the use of IV contrast. Post-processing sagittal and coronal reconstructed images were obtained for interpretation. All CT scans performed at this facility utilize dose optimization techniques as appropriate to the exam, including the following: Automated exposure control and adjustment of the mA and/or KV according to patient size (this includes techniques or standardized protocols for targeted exams where dose is indication/reason for exam). COMPARISON: CT chest same day FINDINGS: CRANIOCERVICAL JUNCTION: Unremarkable. ALIGNMENT: Mild reversal normal cervical lordosis. No listhesis OSSEOUS: No evidence of fracture or bone destruction. DISC SPACES: Mild degenerative changes with disc space narrowing and endplate ossific spurring, most conspicuous at C5-C6 and C6-C7 FACET JOINTS: Unremarkable. SPINAL CANAL: At least mild central canal narrowing is present at C5-C6 due to ossification of the posterior disc protrusion. NEUROFORAMINA: Unremarkable. SOFT TISSUES: Unremarkable. IMPRESSION: No evidence of metastatic disease to the cervical spine, Multilevel cervical degenerative spondylosis, most conspicuous at C5-C6 as described. EXAM: CT Thoracic Spine without IV contrast INDICATION: Metastatic cancer TECHNIQUE: Multi-detector row CT images were obtained through the thoracic spine without the use of IV contrast. Post-processing sagittal and coronal reconstructed images were obtained for interpretation. All CT scans performed at this facility utilize dose optimization techniques as appropriate to the exam, including the following: Automated exposure control and adjustment of the mA and/or KV according to patient size (this includes techniques or standardized protocols for targeted exams where dose is indication/reason for exam). COMPARISON: C-spine CT same day FINDINGS: ALIGNMENT: Alignment is within normal limits. OSSEOUS: Bones show mild diffuse coarsening of the trabeculae in a pattern suggesting mild demineralization or multiple intraosseous hemangiomas. DISC SPACES: Unremarkable. FACET JOINTS: Unremarkable. SPINAL CANAL: Unremarkable. NEUROFORAMINA: Unremarkable. SOFT TISSUES: Numerous pulmonary nodules and prominent mediastinal lymph nodes, compatible with metastatic disease. IMPRESSION: No evidence of thoracic spine metastatic disease. Evidence of mediastinal and pulmonary metastatic disease. EXAM: CT Lumbar Spine without IV contrast INDICATION: Metastatic cancer TECHNIQUE: Multi-detector row CT images were obtained through the lumbar spine without the use of IV contrast. Post-processing sagittal and coronal reconstructed images were obtained for interpretation. All CT scans performed at this facility utilize dose optimization techniques as appropriate to the exam, including the following: Automated exposure control and adjustment of the mA and/or KV according to patient size (this includes techniques or standardized protocols for targeted exams where dose is indication/reason for exam). COMPARISON: CT T-spine same day and CT abdomen and pelvis with the previous day FINDINGS: There are hypoplastic ribs at T12. Below this, 5 lumbar type vertebrae are identified. The lowest fully formed disc is referred to as the L5-S1 level. ALIGNMENT: Alignment is within normal limits. OSSEOUS: There is mild generalized demineralization in the osseous structures but an osteolytic lesion is present at the anterolateral right aspect of the L4 vertebral body, associated with a pathologic fracture with minimal right-sided loss of height. The anterolateral aspect of the L5 vertebral body also demonstrates permeative osteolysis with cortical destruction, consistent with osteolytic metastatic deposit. DISC SPACES: Unremarkable. FACET JOINTS: Unremarkable. SPINAL CANAL: Unremarkable. NEUROFORAMINA: Unremarkable. SOFT TISSUES: Bulky retroperitoneal adenopathy is incidentally noted. IMPRESSION: Osteolytic lesions at L4 and at L5, highly suspicious for osteolytic metastatic deposits with associated pathologic fracture and mild asymmetric right-sided loss of height at L4. Electronically signed by: Juan Alberto Sanders MD (11/22/2019 12:11 PM) [id number]
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
[2019-11-22] MEDS ORDERED: POTASSIUM CHLORIDE 20 MEQ TABLET.ER. PO ONE (14:00)
[2019-11-22 14:57] VITALS: BP 91/54
[2019-11-22 19:00] VITALS: BP 113/64
[2019-11-22] MEDS ORDERED: ATORVASTATIN CALCIUM 20 MG TABLET PO SCH (21:00)
[2019-11-22 23:00] VITALS: BP 141/73
[2019-11-23] VITALS (14 sets, daily range): BP systolic 96–141; BP diastolic 62–93
[2019-11-23] MEDS: HYDROcodone/APAP 5/325MG 1 TAB TABLET PO PRN ×5 (00:34→23:00)
--- NOTE | 2019-11-23 01:41 | NUR ---
Requested P500 bed for Pt with intractable pain. Transferred Pt, resting now.
[2019-11-23] MEDS: INSULIN LISPRO 300 UNITS/3 ML VIAL. SQ SCH ×4 (07:30→21:00)
[2019-11-23] MEDS: ASPIRIN CHEWABLE 81 MG TABLET. PO SCH (08:00)
[2019-11-23] MEDS: DOCUSATE SODIUM 100 MG CAPSULE. PO SCH ×2 (09:00→22:57)
--- NOTE | 2019-11-23 09:01 | NUR ---
SW following. Discussed with RN, pt from home alone. Pt having a kyphoplasty today and a biopsy of L4 lesion. SW will continue to follow for discharge planning needs.
--- NOTE | 2019-11-23 10:01 | PDOC ---
PROGRESS NOTES Chief Complaint Chief Complaint ASSESSMENT Metastatic Cancer, unknown primary at this point suspect lung as primary Extensive anthony and pulmonary parenchymal metastatic disease. Pathologic compression fracture at the L4 vertebral body. DM2, non insulin dependent HLD, on statin therapy Pain secondary to bone mets Hypokalemia Hyponatremia Elevated LFTs hx of melanoma hx of TBI PLAN - check MRI brain - CT chest, CT cervical, lumbar and thoracic spine done. no mets in cervical or thoracic spine. - check CEA CA19-9. PSA normal - onc consulted - IR consult for bx today - stop statin given elevated LFTs - SSI - hold ASA, no cardiac hx. likely will need bx for tissue diagnosis - IV and PO pain meds available - dvt ppx: lovenox on hold for bx - FULL CODE History of Present Illness History of Present Illness no issues overnight. awaiting bone bx and brain MRI today. Vitals Vitals Vital Signs Date Time Temp Pulse Resp B/P (MAP) Pulse Ox O2 Delivery O2 Flow Rate FiO2 11/23/19 07:15 98.5 76 16 111/62 (78) 94 Room Air 98.5 Physical Exam General: Alert, Oriented X3, No acute distress Heart: Regular rate Lungs: Clear Abdomen: No tenderness, No hepatosplenomegaly, No masses Extremities: No clubbing, No tenderness/swelling Skin: No rashes, No significant lesion Labs LABS Laboratory Tests Test 11/22/19 10:30 11/22/19 11:39 11/22/19 16:47 11/22/19 20:25 Prothrombin Time 13.3 SEC (11.7-14.0) Prothromb Time International Ratio 1.1 (0.8-1.1) Activated Partial Thromboplast Time 33 SEC (24-38) Prostate Specific Antigen 0.84 ng/mL (0.00-4.00) Glucose (Fingerstick) 110 mg/dL (70-99) 103 mg/dL (70-99) 98 mg/dL (70-99) Test 11/23/19 07:10 Glucose (Fingerstick) 115 mg/dL (70-99) Assessment and Plan Assessmemt and Plan Problems Medical Problems: (1) Compression fracture of L4 vertebra Status: Acute (2) Low back pain Status: Acute (3) Metastatic neoplastic disease Status: Acute (4) Right flank pain Status: Acute Comment Review of Relevant I have reviewed the following items sylvia (where applicable) has been applied. Labs Laboratory Tests Test 11/21/19 20:35 11/21/19 21:35 11/22/19 07:50 11/22/19 10:30 Urine Collection Type Unknown Urine Color Yellow Urine Clarity Clear Urine pH 7.0 (<5.0-8.0) Urine Specific [place] 1.015 (1.000-1.030) Urine Protein 30 mg/dL (NEG-TRACE) Urine Glucose (UA) Negative mg/dL (NEG) Urine Ketones (Stick) Negative mg/dL (NEG) Urine Blood Small (NEG) Urine Nitrite Negative (NEG) Urine Bilirubin Negative (NEG) Urine Urobilinogen Dipstick 4.0 mg/dL (0.2 mg/dL) Urine Leukocyte Esterase Negative (NEG) Urine RBC 6-10 /HPF (0-2) Urine WBC 0 /HPF (0-4) Urine Squamous Epithelial Cells Occ /LPF Urine Bacteria 0 /HPF (0-FEW) Urine Mucus Slight /LPF Urine Sperm Present /HPF White Blood Count 6.9 x10^3/uL (4.0-11.0) Red Blood Count 4.45 x10^6/uL (4.30-5.70) Hemoglobin 13.1 g/dL (13.0-17.5) Hematocrit 38.9 % (39.0-53.0) Mean Corpuscular Volume 88 fL (79-100) Mean Corpuscular Hemoglobin 30 pg (25-35) Mean Corpuscular Hemoglobin Concent 34 g/dL (31-37) Red Cell Distribution Width 13.5 % (11.5-14.5) Platelet Count 364 x10^3/uL (140-400) Neutrophils (%) (Auto) 77 % (31-73) Lymphocytes (%) (Auto) 13 % (24-48) Monocytes (%) (Auto) 9 % (0-9) Eosinophils (%) (Auto) 1 % (0-3) Basophils (%) (Auto) 1 % (0-3) Neutrophils # (Auto) 5.3 x10^3/uL (1.8-7.7) Lymphocytes # (Auto) 0.9 x10^3/uL (1.0-4.8) Monocytes # (Auto) 0.6 x10^3/uL (0.0-1.1) Eosinophils # (Auto) 0.1 x10^3/uL (0.0-0.7) Basophils # (Auto) 0.0 x10^3/uL (0.0-0.2) Sodium Level 134 mmol/L (136-145) Potassium Level 3.3 mmol/L (3.5-5.1) Chloride Level 97 mmol/L (98-107) Carbon Dioxide Level 30 mmol/L (21-32) Anion Gap 7 (6-14) Blood Urea Nitrogen 26 mg/dL (8-26) Creatinine 0.7 mg/dL (0.7-1.3) Estimated GFR (Cockcroft-Gault) 117.5 BUN/Creatinine Ratio 37 (6-20) Glucose Level 149 mg/dL (70-99) Calcium Level 8.3 mg/dL (8.5-10.1) Total Bilirubin 0.4 mg/dL (0.2-1.0) Aspartate Amino Transf (AST/SGOT) 81 U/L (15-37) Alanine Aminotransferase (ALT/SGPT) 88 U/L (16-63) Alkaline Phosphatase 232 U/L (46-116) Total Protein 7.0 g/dL (6.4-8.2) Albumin 2.9 g/dL (3.4-5.0) Albumin/Globulin Ratio 0.7 (1.0-1.7) Glucose (Fingerstick) 101 mg/dL (70-99) Prothrombin Time 13.3 SEC (11.7-14.0) Prothromb Time International Ratio 1.1 (0.8-1.1) Activated Partial Thromboplast Time 33 SEC (24-38) Prostate Specific Antigen 0.84 ng/mL (0.00-4.00) Test 11/22/19 11:39 11/22/19 16:47 11/22/19 20:25 11/23/19 07:10 Glucose (Fingerstick) 110 mg/dL (70-99) 103 mg/dL (70-99) 98 mg/dL (70-99) 115 mg/dL (70-99) Laboratory Tests Test 11/22/19 10:30 11/22/19 11:39 11/22/19 16:47 11/22/19 20:25 Prothrombin Time 13.3 SEC (11.7-14.0) Prothromb Time International Ratio 1.1 (0.8-1.1) Activated Partial Thromboplast Time 33 SEC (24-38) Prostate Specific Antigen 0.84 ng/mL (0.00-4.00) Glucose (Fingerstick) 110 mg/dL (70-99) 103 mg/dL (70-99) 98 mg/dL (70-99) Test 11/23/19 07:10 Glucose (Fingerstick) 115 mg/dL (70-99) Medications Current Medications Sodium Chloride 1,000 ml @ 1,000 mls/hr Q1H IV Last administered on 11/21/19at 21:54; Start 11/21/19 at 21:30; Stop 11/21/19 at 22:29; Status DC Ondansetron HCl (Zofran) 4 mg 1X ONCE IVP Last administered on 11/21/19at 21:54; Start 11/21/19 at 21:30; Stop 11/21/19 at 21:31; Status DC Ketorolac Tromethamine (Toradol 30mg Vial) 30 mg 1X ONCE IVP Last administered on 11/21/19at 21:55; Start 11/21/19 at 21:30; Stop 11/21/19 at 21:31; Status DC Ondansetron HCl (Zofran) 4 mg PRN Q8HRS PRN IV NAUSEA/VOMITING; Start 11/21/19 at 23:30; Stop 11/22/19 at 06:04; Status DC Morphine Sulfate (Morphine Sulfate) 4 mg PRN Q2HR PRN IV PAIN Last administered on 11/22/19at 04:51; Start 11/21/19 at 23:30 Ondansetron HCl (Zofran) 4 mg PRN Q4HRS PRN IV NAUSEA/VOMITING; Start 11/22/19 at 06:00 Aspirin (Aspirin Chewable) 81 mg DAILYWBKFT PO Last administered on 11/22/19at 08:28; Start 11/22/19 at 08:00 Atorvastatin Calcium (Lipitor) 20 mg HS PO ; Start 11/22/19 at 21:00; Stop 11/22/19 at 09:35; Status DC Docusate Sodium (Colace) 100 mg BID PO Last administered on 11/22/19at 20:49; Start 11/22/19 at 09:00 Acetaminophen/ Hydrocodone Bitart (Lortab 5/325) 1 tab PRN Q4HRS PRN PO MODERATE PAIN 4-6 Last administered on 11/23/19at 05:04; Start 11/22/19 at 06:00 Ibuprofen (Motrin) 400 mg PRN Q6HRS PRN PO INFLAMMATION; Start 11/22/19 at 06:00 Fentanyl (Duragesic 12mcg/ Hr Patch) 1 patch Q3DAYS TD Last administered on 11/22/19at 08:28; Start 11/22/19 at 09:00 Enoxaparin Sodium (Lovenox 40mg Syringe) 40 mg Q24H SQ Last administered on 11/22/19at 08:35; Start 11/22/19 at 10:00; Stop 11/22/19 at 17:03; Status DC Insulin Human Lispro (HumaLOG) 0-7 UNITS TIDACHC SQ ; Start 11/22/19 at 07:30 Dextrose (Dextrose 50%-Water Syringe) 12.5 gm PRN Q15MIN PRN IV SEE COMMENTS; Start 11/22/19 at 06:00 Potassium Chloride (Klor-Con) 40 meq 1X ONCE PO Last administered on 11/22/19at 16:12; Start 11/22/19 at 14:00; Stop 11/22/19 at 14:01; Status DC Active Scripts Active Reported Colace (Docusate Sodium) 100 Mg Capsule 1 Cap PO BID [place] 5-325 Tablet (Acetaminophen/Hydrocodone Bitart) 1 Each Tablet 1 Tab PO Q4- 6HRS Ibuprofen 400 Mg Tablet 400 Mg PO PRN Q6HRS PRN Atorvastatin Calcium 20 Mg Tablet 1 Tab PO DAILY Aspirin 81 Mg Tab.chew 1 Tab PO DAILY Metformin Hcl 500 Mg Tablet 500 Mg PO BIDWMEALS Vitals/I & O Vital Sign - Last 24 Hours 11/22/19 11/22/19 11/22/19 11/22/19 11:16 12:30 13:14 14:15 Temp 97.4 97.4 Pulse 66 Resp 16 16 20 20 B/P (MAP) 124/77 (93) Pulse Ox 92 O2 Delivery Room Air 11/22/19 11/22/19 11/22/19 11/22/19 14:57 19:00 20:00 23:00 Temp 98.4 98.7 98.8 98.4 98.7 98.8 Pulse 54 69 71 Resp 18 18 18 B/P (MAP) 91/54 (66) 113/64 (80) 141/73 (95) Pulse Ox 97 96 92 O2 Delivery Room Air Room Air Room Air 11/23/19 11/23/19 03:00 07:15 Temp 98.1 98.5 98.1 98.5 Pulse 73 76 Resp 18 16 B/P (MAP) 96/66 (76) 111/62 (78) Pulse Ox 91 94 O2 Delivery Room Air Room Air Intake and Output 11/22/19 11/22/19 11/23/19 15:00 23:00 07:00 Intake Total 120 ml 120 ml Output Total 350 ml 200 ml Balance -230 ml -80 ml RIC JANE MD November 23, 2019 10:00
[2019-11-23] MEDS ORDERED: IOHEXOL 240 MG/ML 50ML VIAL. ONE (11:28)
[2019-11-23] MEDS ORDERED: LIDOCAINE 2% 20 ML VIAL. ONE (11:28)
--- NOTE | 2019-11-23 12:00 | PDOC ---
PULMONARY PROGRESS NOTES Subjective no diaz no CP Vitals Vital Signs Date Time Temp Pulse Resp B/P (MAP) Pulse Ox O2 Delivery O2 Flow Rate FiO2 11/23/19 11:09 100.1 86 20 114/76 (89) 93 Room Air 100.1 ROS: No Chest Pain, No Abdominal Pain, No Increase Cough General: Alert, No acute distress Lungs: Clear Cardiovascular: S1 Abdomen: Soft Neuro Exam: Alert Extremities: No Edema Skin: Warm Labs Laboratory Tests Test 11/21/19 20:35 11/21/19 21:35 11/22/19 07:50 11/22/19 10:30 Urine Collection Type Unknown Urine Color Yellow Urine Clarity Clear Urine pH 7.0 (<5.0-8.0) Urine Specific [place] 1.015 (1.000-1.030) Urine Protein 30 mg/dL (NEG-TRACE) Urine Glucose (UA) Negative mg/dL (NEG) Urine Ketones (Stick) Negative mg/dL (NEG) Urine Blood Small (NEG) Urine Nitrite Negative (NEG) Urine Bilirubin Negative (NEG) Urine Urobilinogen Dipstick 4.0 mg/dL (0.2 mg/dL) Urine Leukocyte Esterase Negative (NEG) Urine RBC 6-10 /HPF (0-2) Urine WBC 0 /HPF (0-4) Urine Squamous Epithelial Cells Occ /LPF Urine Bacteria 0 /HPF (0-FEW) Urine Mucus Slight /LPF Urine Sperm Present /HPF White Blood Count 6.9 x10^3/uL (4.0-11.0) Red Blood Count 4.45 x10^6/uL (4.30-5.70) Hemoglobin 13.1 g/dL (13.0-17.5) Hematocrit 38.9 % (39.0-53.0) Mean Corpuscular Volume 88 fL (79-100) Mean Corpuscular Hemoglobin 30 pg (25-35) Mean Corpuscular Hemoglobin Concent 34 g/dL (31-37) Red Cell Distribution Width 13.5 % (11.5-14.5) Platelet Count 364 x10^3/uL (140-400) Neutrophils (%) (Auto) 77 % (31-73) Lymphocytes (%) (Auto) 13 % (24-48) Monocytes (%) (Auto) 9 % (0-9) Eosinophils (%) (Auto) 1 % (0-3) Basophils (%) (Auto) 1 % (0-3) Neutrophils # (Auto) 5.3 x10^3/uL (1.8-7.7) Lymphocytes # (Auto) 0.9 x10^3/uL (1.0-4.8) Monocytes # (Auto) 0.6 x10^3/uL (0.0-1.1) Eosinophils # (Auto) 0.1 x10^3/uL (0.0-0.7) Basophils # (Auto) 0.0 x10^3/uL (0.0-0.2) Sodium Level 134 mmol/L (136-145) Potassium Level 3.3 mmol/L (3.5-5.1) Chloride Level 97 mmol/L (98-107) Carbon Dioxide Level 30 mmol/L (21-32) Anion Gap 7 (6-14) Blood Urea Nitrogen 26 mg/dL (8-26) Creatinine 0.7 mg/dL (0.7-1.3) Estimated GFR (Cockcroft-Gault) 117.5 BUN/Creatinine Ratio 37 (6-20) Glucose Level 149 mg/dL (70-99) Calcium Level 8.3 mg/dL (8.5-10.1) Total Bilirubin 0.4 mg/dL (0.2-1.0) Aspartate Amino Transf (AST/SGOT) 81 U/L (15-37) Alanine Aminotransferase (ALT/SGPT) 88 U/L (16-63) Alkaline Phosphatase 232 U/L (46-116) Total Protein 7.0 g/dL (6.4-8.2) Albumin 2.9 g/dL (3.4-5.0) Albumin/Globulin Ratio 0.7 (1.0-1.7) Glucose (Fingerstick) 101 mg/dL (70-99) Prothrombin Time 13.3 SEC (11.7-14.0) Prothromb Time International Ratio 1.1 (0.8-1.1) Activated Partial Thromboplast Time 33 SEC (24-38) Prostate Specific Antigen 0.84 ng/mL (0.00-4.00) Test 11/22/19 11:39 11/22/19 16:47 11/22/19 20:25 11/23/19 07:10 Glucose (Fingerstick) 110 mg/dL (70-99) 103 mg/dL (70-99) 98 mg/dL (70-99) 115 mg/dL (70-99) Test 11/23/19 11:32 Glucose (Fingerstick) 112 mg/dL (70-99) Laboratory Tests Test 11/22/19 16:47 11/22/19 20:25 11/23/19 07:10 11/23/19 11:32 Glucose (Fingerstick) 103 mg/dL (70-99) 98 mg/dL (70-99) 115 mg/dL (70-99) 112 mg/dL (70-99) Medications Active Scripts Medications Dose Route/Sig Max Daily Dose Days Date Category Colace (Docusate Sodium) 100 Mg Capsule 1 Cap PO BID 03/07/19 Reported [place] 5-325 Tablet (Acetaminophen/Hydrocodone Bitart) 1 Each Tablet 1 Tab PO Q4-6HRS 03/07/19 Reported Ibuprofen 400 Mg Tablet 400 Mg PO PRN Q6HRS PRN 03/07/19 Reported Atorvastatin Calcium 20 Mg Tablet 1 Tab PO DAILY 03/07/19 Reported Aspirin 81 Mg Tab.chew 1 Tab PO DAILY 03/07/19 Reported Metformin Hcl 500 Mg Tablet 500 Mg PO BIDWMEALS 03/07/19 Reported Impression . 1. Abnormal CT chest with multiple nodules throughout the lungs and lesions in the liver. He also has CT abdomen and pelvis, which showed abdominal adenopathy and bony lesions, especially L4 compression fracture. He likely has metastatic disease. He had a history of melanoma removed from the lower back 6 to 8 months ago. Could be a primary lesion. 2. No significant tobacco history. 3. No significant weight loss. 4. H/O TBI with development delay. Plan . 1. Discussed with Interventional Radiology and discussed with the patient's Dilcia NGUYEN. We will proceed with biopsy of the L4 lesion. 2. Once the biopsy confirms malignancy, we will assess for treatment option. 3. Consult Oncology. 4. Hold Lovenox. 5. Discussed with DACIA GONZALEZ MD November 23, 2019 12:00
[2019-11-23] MEDS ORDERED: ceFAZolin SODIUM IV Push 1 GM VIAL. IVP ONE ×2 (14:09→15:15)
[2019-11-23] MEDS ORDERED: MIDAZOLAM HCL/PF 5 MG/5 ML VIAL. ONE (14:09)
[2019-11-23] MEDS ORDERED: fentaNYL PF VIAL 100 MCG/2 ML VIAL ONE (14:09)
[2019-11-23] MEDS ORDERED: IOHEXOL 240 MG/ML 50ML VIAL. IJ ONE (15:15)
[2019-11-23] MEDS ORDERED: MIDAZOLAM HCL/PF 5 MG/5 ML VIAL. IV ONE (15:15)
[2019-11-23] MEDS ORDERED: fentaNYL PF VIAL 100 MCG/2 ML VIAL IV ONE (15:15)
[2019-11-23] MEDS ORDERED: LIDOCAINE 1% Multi-Dose 20 ML VIAL. INJ ONE (15:15)
[2019-11-23] MEDS ORDERED: LIDOCAINE 2% 20 ML VIAL. IJ ONE (15:45)
[2019-11-24 03:00] VITALS: BP 105/75
[2019-11-24] MEDS: HYDROcodone/APAP 5/325MG 1 TAB TABLET PO PRN ×5 (03:02→23:58)
--- NOTE | 2019-11-24 06:57 | PDOC ---
PULMONARY PROGRESS NOTES Subjective no diaz no CP s/p l4 bx, has back pain Vitals Vital Signs Date Time Temp Pulse Resp B/P (MAP) Pulse Ox O2 Delivery O2 Flow Rate FiO2 11/24/19 04:09 Room Air 11/24/19 03:00 98.9 86 16 105/75 (85) 92 98.9 11/23/19 15:35 2.0 ROS: No Chest Pain, No Abdominal Pain, No Increase Cough General: Alert, No acute distress Lungs: Clear Cardiovascular: S1, S2 Abdomen: Soft Neuro Exam: Alert Extremities: No Edema Skin: Warm Labs Laboratory Tests Test 11/22/19 07:50 11/22/19 10:30 11/22/19 11:39 11/22/19 16:47 Glucose (Fingerstick) 101 mg/dL (70-99) 110 mg/dL (70-99) 103 mg/dL (70-99) Prothrombin Time 13.3 SEC (11.7-14.0) Prothromb Time International Ratio 1.1 (0.8-1.1) Activated Partial Thromboplast Time 33 SEC (24-38) Prostate Specific Antigen 0.84 ng/mL (0.00-4.00) Test 11/22/19 20:25 11/23/19 07:10 11/23/19 11:32 11/23/19 16:43 Glucose (Fingerstick) 98 mg/dL (70-99) 115 mg/dL (70-99) 112 mg/dL (70-99) 132 mg/dL (70-99) Test 11/23/19 21:11 Glucose (Fingerstick) 187 mg/dL (70-99) Laboratory Tests Test 11/23/19 07:10 11/23/19 11:32 11/23/19 16:43 11/23/19 21:11 Glucose (Fingerstick) 115 mg/dL (70-99) 112 mg/dL (70-99) 132 mg/dL (70-99) 187 mg/dL (70-99) Medications Active Scripts Medications Dose Route/Sig Max Daily Dose Days Date Category Colace (Docusate Sodium) 100 Mg Capsule 1 Cap PO BID 03/07/19 Reported [place] 5-325 Tablet (Acetaminophen/Hydrocodone Bitart) 1 Each Tablet 1 Tab PO Q4-6HRS 8/28/19 Reported Ibuprofen 400 Mg Tablet 400 Mg PO PRN Q6HRS PRN 03/07/19 Reported Atorvastatin Calcium 20 Mg Tablet 1 Tab PO DAILY 03/07/19 Reported Aspirin 81 Mg Tab.chew 1 Tab PO DAILY 03/07/19 Reported Metformin Hcl 500 Mg Tablet 500 Mg PO BIDWMEALS 03/07/19 Reported Impression . 1. Abnormal CT chest with multiple nodules throughout the lungs and lesions in the liver. He also has CT abdomen and pelvis, which showed abdominal adenopathy and bony lesions, especially L4 compression fracture. He likely has metastatic disease. He had a history of melanoma removed from the lower back 6 to 8 months ago. Could be a primary lesion. fu path 2. No significant tobacco history. 3. No significant weight loss. 4. H/O TBI with development delay. Plan . 1. s/p biopsy of the L4. fu path 2. Once the biopsy confirms malignancy, we will assess for treatment option. 3. Consult Oncology. 4. restart Lovenox. 5. Discussed with RN, pt . MAURO LIGHT MD November 24, 2019 06:56
[2019-11-24 07:00] VITALS: BP 106/79
[2019-11-24] MEDS: INSULIN LISPRO 300 UNITS/3 ML VIAL. SQ SCH ×4 (07:30→21:00)
[2019-11-24 08:11] LABS: CEA 1.9 ng/mL (0.0-4.7)
[2019-11-24] MEDS: ASPIRIN CHEWABLE 81 MG TABLET. PO SCH (09:06)
[2019-11-24] MEDS: DOCUSATE SODIUM 100 MG CAPSULE. PO SCH ×2 (09:07→22:26)
--- NOTE | 2019-11-24 09:35 | PDOC ---
PROGRESS NOTES Chief Complaint Chief Complaint ASSESSMENT Metastatic Cancer, unknown primary at this point suspect melanoma as primary Extensive anthoyn and pulmonary parenchymal metastatic disease. Pathologic compression fracture at the L4 vertebral body. DM2, non insulin dependent HLD, on statin therapy Pain secondary to bone mets Hypokalemia Hyponatremia Elevated LFTs hx of melanoma hx of TBI PLAN - check MRI brain - CT chest, CT cervical, lumbar and thoracic spine done. no mets in cervical or thoracic spine. - check CEA CA19-9. PSA normal - onc consulted. recommending placing port - pulm consulted - ortho consult for compression fracture eval - IR consult for lumbar bx. path pending - stop statin given elevated LFTs - SSI - hold ASA, no cardiac hx. - IV and PO pain meds available - dvt ppx: lovenox on hold for bx - needs PT eval - FULL CODE History of Present Illness History of Present Illness no issues overnight. awaiting bone bx and brain MRI today. Vitals Vitals Vital Signs Date Time Temp Pulse Resp B/P (MAP) Pulse Ox O2 Delivery O2 Flow Rate FiO2 11/24/19 09:07 Room Air 11/24/19 07:00 98.2 64 16 106/79 (88) 95 98.2 11/23/19 15:35 2.0 Physical Exam General: Alert, Oriented X3, No acute distress Heart: Regular rate Lungs: Clear Abdomen: No tenderness, No hepatosplenomegaly, No masses Extremities: No clubbing, No tenderness/swelling Skin: No rashes, No significant lesion Labs LABS Laboratory Tests Test 11/23/19 11:32 11/23/19 16:43 11/23/19 21:11 11/24/19 07:52 Glucose (Fingerstick) 112 mg/dL (70-99) 132 mg/dL (70-99) 187 mg/dL (70-99) 118 mg/dL (70-99) Assessment and Plan Assessmemt and Plan Problems Medical Problems: (1) Compression fracture of L4 vertebra Status: Acute (2) Low back pain Status: Acute (3) Metastatic neoplastic disease Status: Acute (4) Right flank pain Status: Acute Comment Review of Relevant I have reviewed the following items sylvia (where applicable) has been applied. Labs Laboratory Tests Test 11/22/19 10:30 11/22/19 11:39 11/22/19 16:47 11/22/19 20:25 Prothrombin Time 13.3 SEC (11.7-14.0) Prothromb Time International Ratio 1.1 (0.8-1.1) Activated Partial Thromboplast Time 33 SEC (24-38) Carcinoembryonic Antigen 1.9 ng/mL (0.0-4.7) [place] 19-9 Antigen 26 U/mL (0-35) Prostate Specific Antigen 0.84 ng/mL (0.00-4.00) Glucose (Fingerstick) 110 mg/dL (70-99) 103 mg/dL (70-99) 98 mg/dL (70-99) Test 11/23/19 07:10 11/23/19 11:32 11/23/19 16:43 11/23/19 21:11 Glucose (Fingerstick) 115 mg/dL (70-99) 112 mg/dL (70-99) 132 mg/dL (70-99) 187 mg/dL (70-99) Test 11/24/19 07:52 Glucose (Fingerstick) 118 mg/dL (70-99) Laboratory Tests Test 11/23/19 11:32 11/23/19 16:43 11/23/19 21:11 11/24/19 07:52 Glucose (Fingerstick) 112 mg/dL (70-99) 132 mg/dL (70-99) 187 mg/dL (70-99) 118 mg/dL (70-99) Medications Current Medications Sodium Chloride 1,000 ml @ 1,000 mls/hr Q1H IV Last administered on 11/21/19at 21:54; Start 11/21/19 at 21:30; Stop 11/21/19 at 22:29; Status DC Ondansetron HCl (Zofran) 4 mg 1X ONCE IVP Last administered on 11/21/19at 21:54; Start 11/21/19 at 21:30; Stop 11/21/19 at 21:31; Status DC Ketorolac Tromethamine (Toradol 30mg Vial) 30 mg 1X ONCE IVP Last administered on 11/21/19at 21:55; Start 11/21/19 at 21:30; Stop 11/21/19 at 21:31; Status DC Ondansetron HCl (Zofran) 4 mg PRN Q8HRS PRN IV NAUSEA/VOMITING; Start 11/21/19 at 23:30; Stop 11/22/19 at 06:04; Status DC Morphine Sulfate (Morphine Sulfate) 4 mg PRN Q2HR PRN IV PAIN Last administered on 11/22/19at 04:51; Start 11/21/19 at 23:30 Ondansetron HCl (Zofran) 4 mg PRN Q4HRS PRN IV NAUSEA/VOMITING; Start 11/22/19 at 06:00 Aspirin (Aspirin Chewable) 81 mg DAILYWBKFT PO Last administered on 11/24/19at 09:06; Start 11/22/19 at 08:00 Atorvastatin Calcium (Lipitor) 20 mg HS PO ; Start 11/22/19 at 21:00; Stop 11/22/19 at 09:35; Status DC Docusate Sodium (Colace) 100 mg BID PO Last administered on 11/24/19at 09:07; Start 11/22/19 at 09:00 Acetaminophen/ Hydrocodone Bitart (Lortab 5/325) 1 tab PRN Q4HRS PRN PO MODERATE PAIN 4-6 Last administered on 11/24/19at 09:07; Start 11/22/19 at 06:00 Ibuprofen (Motrin) 400 mg PRN Q6HRS PRN PO INFLAMMATION; Start 11/22/19 at 06:00 Fentanyl (Duragesic 12mcg/ Hr Patch) 1 patch Q3DAYS TD Last administered on 11/22/19at 08:28; Start 11/22/19 at 09:00 Enoxaparin Sodium (Lovenox 40mg Syringe) 40 mg Q24H SQ Last administered on 11/22/19at 08:35; Start 11/22/19 at 10:00; Stop 11/22/19 at 17:03; Status DC Insulin Human Lispro (HumaLOG) 0-7 UNITS TIDACHC SQ ; Start 11/22/19 at 07:30 Dextrose (Dextrose 50%-Water Syringe) 12.5 gm PRN Q15MIN PRN IV SEE COMMENTS; Start 11/22/19 at 06:00 Potassium Chloride (Klor-Con) 40 meq 1X ONCE PO Last administered on 11/22/19at 16:12; Start 11/22/19 at 14:00; Stop 11/22/19 at 14:01; Status DC Iohexol (Omnipaque 240 Mg/ml) 50 ml STK-MED ONCE .ROUTE ; Start 11/23/19 at 11:28; Stop 11/23/19 at 11:28; Status DC Lidocaine HCl 20 ml STK-MED ONCE .ROUTE ; Start 11/23/19 at 11:28; Stop 11/23/19 at 11:28; Status DC Cefazolin Sodium (Ancef) 1 gm STK-MED ONCE IVP ; Start 11/23/19 at 14:09; Stop 11/23/19 at 14:09; Status DC Midazolam HCl (Versed) 5 mg STK-MED ONCE .ROUTE ; Start 11/23/19 at 14:09; Stop 11/23/19 at 14:09; Status DC Fentanyl Citrate (Fentanyl 2ml Vial) 100 mcg STK-MED ONCE .ROUTE ; Start 11/23/19 at 14:09; Stop 11/23/19 at 14:09; Status DC Midazolam HCl (Versed) 5 mg 1X ONCE IV Last administered on 11/23/19at 15:33; Start 11/23/19 at 15:15; Stop 11/23/19 at 15:30; Status DC Fentanyl Citrate (Fentanyl 2ml Vial) 100 mcg 1X ONCE IV Last administered on 11/23/19at 15:34; Start 11/23/19 at 15:15; Stop 11/23/19 at 15:30; Status DC Lidocaine HCl (Lidocaine 1% 20ml Vial) 20 ml 1X ONCE INJ ; Start 11/23/19 at 15:15; Stop 11/23/19 at 15:16; Status Cancel Iohexol (Omnipaque 240 Mg/ml) 50 ml 1X ONCE IJ Last administered on 11/23/19at 15:32; Start 11/23/19 at 15:15; Stop 11/23/19 at 15:30; Status DC Cefazolin Sodium (Ancef) 1 gm 1X ONCE IVP Last administered on 11/23/19at 15:33; Start 11/23/19 at 15:15; Stop 11/23/19 at 15:30; Status DC Lidocaine HCl 20 ml 1X ONCE IJ ; Start 11/23/19 at 15:45; Stop 11/23/19 at 15:46; Status DC Active Scripts Active Reported Colace (Docusate Sodium) 100 Mg Capsule 1 Cap PO BID [place] 5-325 Tablet (Acetaminophen/Hydrocodone Bitart) 1 Each Tablet 1 Tab PO Q4- 6HRS Ibuprofen 400 Mg Tablet 400 Mg PO PRN Q6HRS PRN Atorvastatin Calcium 20 Mg Tablet 1 Tab PO DAILY Aspirin 81 Mg Tab.chew 1 Tab PO DAILY Metformin Hcl 500 Mg Tablet 500 Mg PO BIDWMEALS Vitals/I & O Vital Sign - Last 24 Hours 11/23/19 11/23/19 11/23/19 11/23/19 11:09 15:34 15:35 15:47 Temp 100.1 98.6 100.1 98.6 Pulse 86 81 90 Resp 20 24 24 16 B/P (MAP) 114/76 (89) 124/76 (92) Pulse Ox 93 97 97 90 O2 Delivery Room Air Nasal Cannula Nasal Cannula Room Air O2 Flow Rate 2.0 2.0 11/23/19 11/23/19 11/23/19 11/23/19 16:00 16:15 16:30 16:45 Pulse 94 91 89 80 B/P (MAP) 126/81 (96) 122/73 (89) 120/78 (92) 111/81 (91) 11/23/19 11/23/19 11/23/19 11/23/19 17:00 17:05 17:30 18:05 Pulse 95 91 Resp 16 16 B/P (MAP) 106/78 (87) 124/81 (95) O2 Delivery Room Air Room Air 11/23/19 11/23/19 11/23/19 11/23/19 18:32 19:00 19:45 23:00 Temp 99.1 98.4 99.1 98.4 Pulse 95 94 89 Resp 16 16 B/P (MAP) 140/92 (108) 121/83 (96) 107/75 (86) Pulse Ox 90 92 O2 Delivery Room Air Room Air Room Air 11/23/19 11/24/19 11/24/19 11/24/19 23:00 00:00 03:00 03:02 Temp 98.9 98.9 Pulse 86 Resp 16 B/P (MAP) 105/75 (85) Pulse Ox 92 O2 Delivery Room Air Room Air Room Air Room Air 11/24/19 11/24/19 11/24/19 04:09 07:00 09:07 Temp 98.2 98.2 Pulse 64 Resp 16 B/P (MAP) 106/79 (88) Pulse Ox 95 O2 Delivery Room Air Room Air Room Air Intake and Output 11/23/19 11/23/19 11/24/19 15:00 23:00 07:00 Intake Total 50 ml Output Total 150 ml 150 ml Balance -150 ml -100 ml RIC JANE MD November 24, 2019 09:35
[2019-11-24 11:00] VITALS: BP 115/75
[2019-11-24] MEDS: IBUPROFEN 400 MG TABLET. PO PRN ×2 (11:04→17:17)
[2019-11-24 15:00] VITALS: BP 120/80
[2019-11-24 19:00] VITALS: BP 100/56
[2019-11-24 23:00] VITALS: BP 97/64
[2019-11-25] MEDS: IBUPROFEN 400 MG TABLET. PO PRN ×3 (02:40→15:45)
[2019-11-25 03:10] VITALS: BP 102/70
[2019-11-25] MEDS: HYDROcodone/APAP 5/325MG 1 TAB TABLET PO PRN ×4 (04:01→20:01)
--- NOTE | 2019-11-25 06:25 | PDOC ---
PULMONARY PROGRESS NOTES Subjective no diaz no CP s/p l4 bx, back pain better Vitals Vital Signs Date Time Temp Pulse Resp B/P (MAP) Pulse Ox O2 Delivery O2 Flow Rate FiO2 11/25/19 04:50 Room Air 11/25/19 03:10 98.5 74 20 102/70 (81) 95 98.5 ROS: No Chest Pain, No Abdominal Pain, No Increase Cough General: Alert, No acute distress Lungs: Clear Cardiovascular: S1, S2 Abdomen: Soft, Non-tender Neuro Exam: Alert Extremities: No Edema Skin: Warm Labs Laboratory Tests Test 11/23/19 07:10 11/23/19 11:32 11/23/19 16:43 11/23/19 21:11 Glucose (Fingerstick) 115 mg/dL (70-99) 112 mg/dL (70-99) 132 mg/dL (70-99) 187 mg/dL (70-99) Test 11/24/19 07:52 11/24/19 10:41 11/24/19 16:41 11/24/19 20:23 Glucose (Fingerstick) 118 mg/dL (70-99) 172 mg/dL (70-99) 151 mg/dL (70-99) 192 mg/dL (70-99) Laboratory Tests Test 11/24/19 07:52 11/24/19 10:41 11/24/19 16:41 11/24/19 20:23 Glucose (Fingerstick) 118 mg/dL (70-99) 172 mg/dL (70-99) 151 mg/dL (70-99) 192 mg/dL (70-99) Medications Active Scripts Medications Dose Route/Sig Max Daily Dose Days Date Category Colace (Docusate Sodium) 100 Mg Capsule 1 Cap PO BID 03/07/19 Reported [place] 5-325 Tablet (Acetaminophen/Hydrocodone Bitart) 1 Each Tablet 1 Tab PO Q4-6HRS 03/07/19 Reported Ibuprofen 400 Mg Tablet 400 Mg PO PRN Q6HRS PRN 03/07/19 Reported Atorvastatin Calcium 20 Mg Tablet 1 Tab PO DAILY 03/07/19 Reported Aspirin 81 Mg Tab.chew 1 Tab PO DAILY 03/07/19 Reported Metformin Hcl 500 Mg Tablet 500 Mg PO BIDWMEALS 03/07/19 Reported Impression . 1. Abnormal CT chest with multiple nodules throughout the lungs and lesions in the liver. He also has CT abdomen and pelvis, which showed abdominal adenopathy and bony lesions, especially L4 compression fracture. He likely has metastatic disease. He had a history of melanoma removed from the lower back 6 to 8 months ago. Could be a primary lesion. fu path 2. No significant tobacco history. 3. No significant weight loss. 4. H/O TBI with development delay. Plan . 1. s/p biopsy of the L4. fu path 2. Once the biopsy confirms malignancy, we will assess for treatment option. 3. Consult Oncology. 4. restart Lovenox for dvt prophaylxis 5. Discussed with RN, pt . MAURO LIGHT MD November 25, 2019 06:25
[2019-11-25 07:00] VITALS: BP 104/70
[2019-11-25] MEDS: INSULIN LISPRO 300 UNITS/3 ML VIAL. SQ SCH ×4 (07:30→21:00)
[2019-11-25] MEDS: ASPIRIN CHEWABLE 81 MG TABLET. PO SCH (07:58)
[2019-11-25] MEDS: fentaNYL 12MCG/HR PATCH 1 PATCH PATCH.TD72 TD SCH (07:59)
[2019-11-25] MEDS: DOCUSATE SODIUM 100 MG CAPSULE. PO SCH ×2 (07:59→20:01)
[2019-11-25] MEDS: ONDANSETRON PF 4 MG/2 ML VIAL. IV PRN (09:05)
--- NOTE | 2019-11-25 10:58 | PDOC ---
PROGRESS NOTES Chief Complaint Chief Complaint IMPRESSION Metastatic Cancer, unknown primary //suspect melanoma as primary Extensive anthony and pulmonary parenchymal metastatic disease. Pathologic compression fracture at the L4 vertebral body. Osteolytic lesions at L4 and at L5, highly suspicious for osteolytic metastatic deposits with associated pathologic fracture and mild asymmetric right-sided loss of height at L4. DM2, non insulin dependent HLD, on statin therapy Pain secondary to bone mets Hypokalemia Hyponatremia Elevated LFTs hx of melanoma hx of TBI PLAN - check MRI brain - CT chest, CT cervical, lumbar and thoracic spine done. no mets in cervical or thoracic spine. - check CEA CA19-9. PSA normal - onc consulted. recommending placing port - pulm consulted - ortho consult for compression fracture eval - IR consult for lumbar bx. path pending - stop statin given elevated LFTs - SSI - hold ASA, no cardiac hx. - IV and PO pain meds available - dvt ppx: lovenox on hold for bx - PT eval - CONSULT ONCOLOGY - FULL CODE 37 MIN pt exam, chart review, > 50% of time spent with exam, chart review, pt care coordination History of Present Illness History of Present Illness no issues overnight. awaiting MRI HEAD . s/p l4 bx, back pain better Vitals Vitals Vital Signs Date Time Temp Pulse Resp B/P (MAP) Pulse Ox O2 Delivery O2 Flow Rate FiO2 11/25/19 08:00 Room Air 11/25/19 07:00 98.0 68 18 104/70 (81) 95 98.0 Physical Exam General: Alert, Oriented X3, Cooperative, No acute distress Heart: Regular rate, Normal S1 Lungs: Clear Abdomen: No tenderness, No hepatosplenomegaly, No masses Extremities: No clubbing, No tenderness/swelling Skin: No rashes, No significant lesion Labs LABS LUNGS: Numerous round nodules are present in both lungs in random distribution, largest in the right lower lobe measures 1.8 cm in diameter. PLEURAL SPACE: No pleural effusions or pneumothorax. OSSEOUS & SOFT TISSUE: Large left axillary mass measuring 3.8 cm likely represent an enlarged level 1 left axillary lymph node. ABDOMEN: Numerous hepatic hypodense masses in upper abdominal retroperitoneal and periportal adenopathy is present, evaluated in greater detail on previous day abdomen CT. IMPRESSION: Extensive anthony and pulmonary parenchymal metastatic disease. EXAM: CT Cervical Spine without IV contrast INDICATION: Metastatic cancer TECHNIQUE: Multi-detector row CT images were obtained through the cervical spine without the use of IV contrast. Post-processing sagittal and coronal reconstructed images were obtained for interpretation. All CT scans performed at this facility utilize dose optimization techniques as appropriate to the exam, including the following: Automated exposure control and adjustment of the mA and/or KV according to patient size (this includes techniques or standardized protocols for targeted exams where dose is indication/reason for exam). COMPARISON: CT chest same day FINDINGS: CRANIOCERVICAL JUNCTION: Unremarkable. ALIGNMENT: Mild reversal normal cervical lordosis. No listhesis OSSEOUS: No evidence of fracture or bone destruction. DISC SPACES: Mild degenerative changes with disc space narrowing and endplate ossific spurring, most conspicuous at C5-C6 and C6-C7 FACET JOINTS: Unremarkable. SPINAL CANAL: At least mild central canal narrowing is present at C5-C6 due to ossification of the posterior disc protrusion. NEUROFORAMINA: Unremarkable. SOFT TISSUES: Unremarkable. IMPRESSION: No evidence of metastatic disease to the cervical spine, Multilevel cervical degenerative spondylosis, most conspicuous at C5-C6 as described. EXAM: CT Thoracic Spine without IV contrast INDICATION: Metastatic cancer TECHNIQUE: Multi-detector row CT images were obtained through the thoracic spine without the use of IV contrast. Post-processing sagittal and coronal reconstructed images were obtained for interpretation. All CT scans performed at this facility utilize dose optimization techniques as appropriate to the exam, including the following: Automated exposure control and adjustment of the mA and/or KV according to patient size (this includes techniques or standardized protocols for targeted exams where dose is indication/reason for exam). COMPARISON: C-spine CT same day FINDINGS: ALIGNMENT: Alignment is within normal limits. OSSEOUS: Bones show mild diffuse coarsening of the trabeculae in a pattern suggesting mild demineralization or multiple intraosseous hemangiomas. DISC SPACES: Unremarkable. FACET JOINTS: Unremarkable. SPINAL CANAL: Unremarkable. NEUROFORAMINA: Unremarkable. SOFT TISSUES: Numerous pulmonary nodules and prominent mediastinal lymph nodes, compatible with metastatic disease. IMPRESSION: No evidence of thoracic spine metastatic disease. Evidence of mediastinal and pulmonary metastatic disease. EXAM: CT Lumbar Spine without IV contrast INDICATION: Metastatic cancer TECHNIQUE: Multi-detector row CT images were obtained through the lumbar spine without the use of IV contrast. Post-processing sagittal and coronal reconstructed images were obtained for interpretation. All CT scans performed at this facility utilize dose optimization techniques as appropriate to the exam, including the following: Automated exposure control and adjustment of the mA and/or KV according to patient size (this includes techniques or standardized protocols for targeted exams where dose is indication/reason for exam). COMPARISON: CT T-spine same day and CT abdomen and pelvis with the previous day FINDINGS: There are hypoplastic ribs at T12. Below this, 5 lumbar type vertebrae are identified. The lowest fully formed disc is referred to as the L5-S1 level. ALIGNMENT: Alignment is within normal limits. OSSEOUS: There is mild generalized demineralization in the osseous structures but an osteolytic lesion is present at the anterolateral right aspect of the L4 vertebral body, associated with a pathologic fracture with minimal right-sided loss of height. The anterolateral aspect of the L5 vertebral body also demonstrates permeative osteolysis with cortical destruction, consistent with osteolytic metastatic deposit. DISC SPACES: Unremarkable. FACET JOINTS: Unremarkable. SPINAL CANAL: Unremarkable. NEUROFORAMINA: Unremarkable. SOFT TISSUES: Bulky retroperitoneal adenopathy is incidentally noted. IMPRESSION: Osteolytic lesions at L4 and at L5, highly suspicious for osteolytic metastatic deposits with associated pathologic fracture and mild asymmetric right-sided loss of height at L4. Electronically signed by: Moira Sanders MD (11/22/2019 12:11 PM) [id number] DICTATED and SIGNED BY: MOIRA SANDERS MD DATE: 11/22/19 1211 Laboratory Tests Test 11/24/19 16:41 11/24/19 20:23 11/25/19 07:53 Glucose (Fingerstick) 151 mg/dL (70-99) 192 mg/dL (70-99) 88 mg/dL (70-99) Assessment and Plan Assessmemt and Plan Problems Medical Problems: (1) Compression fracture of L4 vertebra Status: Acute (2) Low back pain Status: Acute (3) Metastatic neoplastic disease Status: Acute (4) Right flank pain Status: Acute * WFL Sitting Balance * 5 moves >2" all planes Standing Balance * 5 moves >2" all planes Pain Scale Type * Descriptive Pain Location * left mid back Pain Quality * Sore Pain Intervention * Premedicated Supine to Sit Assistance Required * Independent Sit to Supine Assistance Required * Independent Transfer Assistance Required * Independent Transfer Type * Sit to Stand Transfer Assistive Device * No Device Ambulation Assistance Required * Independent Ambulation Assistive Device * No Device Ambulation Distance * 250' Ambulation Comments * Pt has steady even quick nida with no LOB. Pt feels his mobility is at baseline. Other Information * No skilled PT needs identified. Clinical Presentation * Stable Evaluation Complexity Level * Low Complexity Pt/caregiver agrees with plan of care/goals * Yes Patient condition at conclusion of therapy * Pt in bed * Call light in reach * Phone in reach * PtIn no apparent distress * Pt denies further needs Communicated Patient Care With (Name, Title) * DORENE Blanchard No Further Skilled P.T. Intervention Required * Eval only-No PT Needs Discharge Recommendations * Home independent Comment Review of Relevant I have reviewed the following items sylvia (where applicable) has been applied. Labs Laboratory Tests Test 11/23/19 11:32 11/23/19 16:43 11/23/19 21:11 11/24/19 07:52 Glucose (Fingerstick) 112 mg/dL (70-99) 132 mg/dL (70-99) 187 mg/dL (70-99) 118 mg/dL (70-99) Test 11/24/19 10:41 11/24/19 16:41 11/24/19 20:23 11/25/19 07:53 Glucose (Fingerstick) 172 mg/dL (70-99) 151 mg/dL (70-99) 192 mg/dL (70-99) 88 mg/dL (70-99) Laboratory Tests Test 11/24/19 16:41 11/24/19 20:23 11/25/19 07:53 Glucose (Fingerstick) 151 mg/dL (70-99) 192 mg/dL (70-99) 88 mg/dL (70-99) Medications Current Medications Sodium Chloride 1,000 ml @ 1,000 mls/hr Q1H IV Last administered on 11/21/19at 21:54; Start 11/21/19 at 21:30; Stop 11/21/19 at 22:29; Status DC Ondansetron HCl (Zofran) 4 mg 1X ONCE IVP Last administered on 11/21/19at 21:54; Start 11/21/19 at 21:30; Stop 11/21/19 at 21:31; Status DC Ketorolac Tromethamine (Toradol 30mg Vial) 30 mg 1X ONCE IVP Last administered on 11/21/19at 21:55; Start 11/21/19 at 21:30; Stop 11/21/19 at 21:31; Status DC Ondansetron HCl (Zofran) 4 mg PRN Q8HRS PRN IV NAUSEA/VOMITING; Start 11/21/19 at 23:30; Stop 11/22/19 at 06:04; Status DC Morphine Sulfate (Morphine Sulfate) 4 mg PRN Q2HR PRN IV PAIN Last administered on 11/22/19at 04:51; Start 11/21/19 at 23:30 Ondansetron HCl (Zofran) 4 mg PRN Q4HRS PRN IV NAUSEA/VOMITING Last administered on 11/25/19at 09:05; Start 11/22/19 at 06:00 Aspirin (Aspirin Chewable) 81 mg [id number] PO Last administered on 11/25/19at 07:58; Start 11/22/19 at 08:00 Atorvastatin Calcium (Lipitor) 20 mg HS PO ; Start 11/22/19 at 21:00; Stop 11/22/19 at 09:35; Status DC Docusate Sodium (Colace) 100 mg BID PO Last administered on 11/25/19at 07:59; Start 11/22/19 at 09:00 Acetaminophen/ Hydrocodone Bitart (Lortab 5/325) 1 tab PRN Q4HRS PRN PO MODERATE PAIN 4-6 Last administered on 11/25/19at 07:59; Start 11/22/19 at 06:00 Ibuprofen (Motrin) 400 mg PRN Q6HRS PRN PO INFLAMMATION Last administered on 11/25/19at 09:05; Start 11/22/19 at 06:00 Fentanyl (Duragesic 12mcg/ Hr Patch) 1 patch Q3DAYS TD Last administered on 11/25/19at 07:59; Start 11/22/19 at 09:00 Enoxaparin Sodium (Lovenox 40mg Syringe) 40 mg Q24H SQ Last administered on 11/22/19at 08:35; Start 11/22/19 at 10:00; Stop 11/22/19 at 17:03; Status DC Insulin Human Lispro (HumaLOG) 0-7 UNITS TIDACHC SQ Last administered on 11/24/19at 11:54; Start 11/22/19 at 07:30 Dextrose (Dextrose 50%-Water Syringe) 12.5 gm PRN Q15MIN PRN IV SEE COMMENTS; Start 11/22/19 at 06:00 Potassium Chloride (Klor-Con) 40 meq 1X ONCE PO Last administered on 11/22/19at 16:12; Start 11/22/19 at 14:00; Stop 11/22/19 at 14:01; Status DC Iohexol (Omnipaque 240 Mg/ml) 50 ml STK-MED ONCE .ROUTE ; Start 11/23/19 at 11:28; Stop 11/23/19 at 11:28; Status DC Lidocaine HCl 20 ml STK-MED ONCE .ROUTE ; Start 11/23/19 at 11:28; Stop 11/23/19 at 11:28; Status DC Cefazolin Sodium (Ancef) 1 gm STK-MED ONCE IVP ; Start 11/23/19 at 14:09; Stop 11/23/19 at 14:09; Status DC Midazolam HCl (Versed) 5 mg STK-MED ONCE .ROUTE ; Start 11/23/19 at 14:09; Stop 11/23/19 at 14:09; Status DC Fentanyl Citrate (Fentanyl 2ml Vial) 100 mcg STK-MED ONCE .ROUTE ; Start 11/23/19 at 14:09; Stop 11/23/19 at 14:09; Status DC Midazolam HCl (Versed) 5 mg 1X ONCE IV Last administered on 11/23/19at 15:33; Start 11/23/19 at 15:15; Stop 11/23/19 at 15:30; Status DC Fentanyl Citrate (Fentanyl 2ml Vial) 100 mcg 1X ONCE IV Last administered on 11/23/19at 15:34; Start 11/23/19 at 15:15; Stop 11/23/19 at 15:30; Status DC Lidocaine HCl (Lidocaine 1% 20ml Vial) 20 ml 1X ONCE INJ ; Start 11/23/19 at 15:15; Stop 11/23/19 at 15:16; Status Cancel Iohexol (Omnipaque 240 Mg/ml) 50 ml 1X ONCE IJ Last administered on 11/23/19at 15:32; Start 11/23/19 at 15:15; Stop 11/23/19 at 15:30; Status DC Cefazolin Sodium (Ancef) 1 gm 1X ONCE IVP Last administered on 11/23/19at 15:33; Start 11/23/19 at 15:15; Stop 11/23/19 at 15:30; Status DC Lidocaine HCl 20 ml 1X ONCE IJ ; Start 11/23/19 at 15:45; Stop 11/23/19 at 15:46; Status DC Active Scripts Active Reported Colace (Docusate Sodium) 100 Mg Capsule 1 Cap PO BID [place] 5-325 Tablet (Acetaminophen/Hydrocodone Bitart) 1 Each Tablet 1 Tab PO Q4- 6HRS Ibuprofen 400 Mg Tablet 400 Mg PO PRN Q6HRS PRN Atorvastatin Calcium 20 Mg Tablet 1 Tab PO DAILY Aspirin 81 Mg Tab.chew 1 Tab PO DAILY Metformin Hcl 500 Mg Tablet 500 Mg PO BIDWMEALS Vitals/I & O Vital Sign - Last 24 Hours 11/24/19 11/24/19 11/24/19 11/24/19 11:00 11:04 15:00 15:44 Temp 97.9 98.5 97.9 98.5 Pulse 86 84 Resp 16 16 B/P (MAP) 115/75 (88) 120/80 (93) Pulse Ox 93 96 O2 Delivery Room Air Room Air Room Air 11/24/19 11/24/19 11/24/19 11/24/19 17:15 19:00 19:55 20:00 Temp 99.3 99.3 Pulse 76 Resp 20 B/P (MAP) 100/56 (71) Pulse Ox 97 O2 Delivery Room Air Room Air Room Air Room Air 11/24/19 11/24/19 11/24/19 11/25/19 20:55 23:00 23:58 00:58 Temp 97.9 97.9 Pulse 62 Resp 20 B/P (MAP) 97/64 (75) Pulse Ox 96 O2 Delivery Room Air Room Air Room Air Room Air 11/25/19 11/25/19 11/25/19 11/25/19 03:10 04:01 04:50 07:00 Temp 98.5 98.0 98.5 98.0 Pulse 74 68 Resp 20 18 B/P (MAP) 102/70 (81) 104/70 (81) Pulse Ox 95 95 O2 Delivery Room Air Room Air Room Air Room Air 11/25/19 11/25/19 11/25/19 07:59 07:59 08:00 O2 Delivery Room Air Room Air Room Air Intake and Output 11/24/19 11/24/19 11/25/19 15:00 23:00 07:00 Output Total 1 ml 250 ml Balance -1 ml -250 ml KELLY RSUSO MD November 25, 2019 10:58
[2019-11-25 11:00] VITALS: BP 117/76
[2019-11-25 15:00] VITALS: BP 106/71
[2019-11-25 19:00] VITALS: BP 103/77
[2019-11-25 23:00] VITALS: BP 104/55
[2019-11-26] MEDS: HYDROcodone/APAP 5/325MG 1 TAB TABLET PO PRN ×5 (00:05→21:04)
[2019-11-26] MEDS: MORPHINE SULFATE 4 MG/ML VIAL. IV PRN ×4 (02:01→13:46)
[2019-11-26 03:00] VITALS: BP 115/56
[2019-11-26 05:08] LABS: BASO % 1 % (0-3); EOS # 0.2 x10^3/uL (0.0-0.7); EOS % 3 % (0-3); HEMATOCRIT 39.1 % (39.0-53.0); HEMOGLOBIN 13.1 g/dL (13.0-17.5); LYMPH # 0.9 x10^3/uL (1.0-4.8); LYMPH % 12 % (24-48); MEAN CORPUSCULAR HEMOGLOBIN 30 pg (25-35); MEAN CORPUSCULAR HGB CONC 33 g/dL (31-37); MEAN CORPUSCULAR VOLUME 89 fL (79-100); MONO # 0.7 x10^3/uL (0.0-1.1); MONO % 10 % (0-9); NEUT # 5.6 x10^3/uL (1.8-7.7); NEUT % 75 % (31-73); PLATELET COUNT 394 x10^3/uL (140-400); RED BLOOD COUNT 4.42 x10^6/uL (4.30-5.70); RED CELL DISTRIBUTION WIDTH 13.6 % (11.5-14.5); WHITE BLOOD COUNT 7.5 x10^3/uL (4.0-11.0)
[2019-11-26 05:34] LABS: ALBUMIN 2.4 g/dL (3.4-5.0); ALBUMIN/GLOBULIN RATIO 0.6 (1.0-1.7); CALCIUM 8.3 mg/dL (8.5-10.1); CREATININE 0.7 mg/dL (0.7-1.3); GFR 117.5; TOTAL BILIRUBIN 0.3 mg/dL (0.2-1.0); TOTAL PROTEIN 6.7 g/dL (6.4-8.2)
[2019-11-26 07:00] VITALS: BP 128/65
[2019-11-26] MEDS: INSULIN LISPRO 300 UNITS/3 ML VIAL. SQ SCH ×4 (07:30→21:00)
[2019-11-26] MEDS: DOCUSATE SODIUM 100 MG CAPSULE. PO SCH ×2 (08:57→21:03)
[2019-11-26] MEDS: ASPIRIN CHEWABLE 81 MG TABLET. PO SCH (08:57)
[2019-11-26] MEDS: IBUPROFEN 400 MG TABLET. PO PRN (08:58)
--- NOTE | 2019-11-26 10:16 | PDOC ---
PROGRESS NOTES Chief Complaint Chief Complaint IMPRESSION Metastatic Cancer, unknown primary //suspect melanoma as primary Extensive anthony and pulmonary parenchymal metastatic disease. Pathologic compression fracture at the L4 vertebral body. Osteolytic lesions at L4 and at L5, highly suspicious for osteolytic metastatic deposits with associated pathologic fracture and mild asymmetric right-sided loss of height at L4. Fluoroscopically guided biopsy, L4 done L4 kyphoplasty done DM2, non insulin dependent HLD, on statin therapy Pain secondary to bone mets Hypokalemia Hyponatremia Elevated LFTs hx of melanoma history of melanoma removed from the lower back 6 to 8 months hx of TBI PLAN - check MRI brain 11/25 OK WITH DPOA 11/25 by phone consent - CT chest, CT cervical, lumbar and thoracic spine done. no mets in cervical or thoracic spine. - check CEA CA19-9. PSA normal - onc consulted. recommending placing port - pulm consulted - ortho consult for compression fracture eval - IR consult for lumbar bx. path pending - stop statin given elevated LFTs - SSI - hold ASA, no cardiac hx. - IV and PO pain meds available - dvt ppx: lovenox on hold for bx - PT eval - CONSULT ONCOLOGY - FULL CODE D/W DPOA // JAMIE ALLEN [phone] WANTS TO WAIT FOR PORT PLACEMENT until pathology back from bx 37 MIN pt exam, chart review, > 50% of time spent with exam, chart review, pt care coordination History of Present Illness History of Present Illness no issues overnight. awaiting MRI HEAD . s/p l4 bx, back pain FAIR Vitals Vitals Vital Signs Date Time Temp Pulse Resp B/P (MAP) Pulse Ox O2 Delivery O2 Flow Rate FiO2 11/26/19 07:00 98.4 70 18 128/65 (86) 94 Room Air 98.4 Physical Exam General: Alert, Oriented X3, Cooperative, No acute distress Heart: Regular rate, Normal S1 Lungs: Clear Abdomen: Normal bowel sounds, Soft, No tenderness, No hepatosplenomegaly, No masses Extremities: No clubbing, No tenderness/swelling Skin: No rashes, No significant lesion Labs LABS Fluoroscopically guided kyphoplasty November 23, 2019 Indication:Pathologic fracture of L4 secondary to unknown primary malignancy.. Patient has severe pain which is refractory to conservative treatment measures. Moderate sedation: The patient was appropriately monitored by a qualified independent observer throughout the course of the moderate sedation. [id number]-nr-[id number] sedation time:69 minutes Consent: The risks and benefits of the procedure were discussed with the patient. Informed consent was obtained. The patient was brought to the fluoroscopy suite and placed in the prone position. A timeout procedure was performed. Preprocedural antibiotics were administered. Procedure: The overlying skin was prepped and draped in the usual sterile fashion. All elements of maximal sterile barrier technique including the use of a cap, mask, sterile gown, sterile gloves, large sterile sheet, appropriate hand hygiene, and 2% chlorhexidine for cutaneous antisepsis (or acceptable alternative antiseptic per current guidelines) were followed for this procedure. Using a right-sided transpedicular approach, and direct fluoroscopic guidance, a trocar needle was advanced to the posterior targeted vertebral body. A core biopsy was obtained using a control device. This needle was then exchanged for a standard vertebroplasty cannula through which a Vertebral augmentation balloon was then coaxially introduced through the needle, into the more central vertebral body and was deployed. A curved cement delivery needle was advanced into the contralateral vertebral body. Contrast opacified polymethylmethacrylate was then very slowly and carefully introduced through the vertebral augmentation needle, using strict fluoroscopic control. Once adequate filling had been achieved the needles were removed and manual pressure was held. No significant extravasation or complication was identified. Sterile dressing was applied. Patient tolerated the procedure well, without apparent complication Total fluoroscopy time: 12.5 Min Dose area product:: 95 Gycm2 Impression: 1. Fluoroscopically guided biopsy, L4 2. L4 kyphoplasty Fluoroscopically guided kyphoplasty November 23, 2019 Indication:Pathologic fracture of L4 secondary to unknown primary malignancy.. Patient has severe pain which is refractory to conservative treatment measures. Moderate sedation: The patient was appropriately monitored by a qualified independent observer throughout the course of the moderate sedation. [id number]-gf-[id number] sedation time:69 minutes Consent: The risks and benefits of the procedure were discussed with the patient. Informed consent was obtained. The patient was brought to the fluoroscopy suite and placed in the prone position. A timeout procedure was performed. Preprocedural antibiotics were administered. Procedure: The overlying skin was prepped and draped in the usual sterile fashion. All elements of maximal sterile barrier technique including the use of a cap, mask, sterile gown, sterile gloves, large sterile sheet, appropriate hand hygiene, and 2% chlorhexidine for cutaneous antisepsis (or acceptable alternative antiseptic per current guidelines) were followed for this procedure. Using a right-sided transpedicular approach, and direct fluoroscopic guidance, a trocar needle was advanced to the posterior targeted vertebral body. A core biopsy was obtained using a control device. This needle was then exchanged for a standard vertebroplasty cannula through which a Vertebral augmentation balloon was then coaxially introduced through the needle, into the more central vertebral body and was deployed. A curved cement delivery needle was advanced into the contralateral vertebral body. Contrast opacified polymethylmethacrylate was then very slowly and carefully introduced through the vertebral augmentation needle, using strict fluoroscopic control. Once adequate filling had been achieved the needles were removed and manual pressure was held. No significant extravasation or complication was identified. Sterile dressing was applied. Patient tolerated the procedure well, without apparent complication Total fluoroscopy time: 12.5 Min Dose area product:: 95 Gycm2 Impression: 1. Fluoroscopically guided biopsy, L4 2. L4 kyphoplasty DICTATED and SIGNED BY: BILLY AGUILAR MD DATE: 11/26/191247 Laboratory Tests Test 11/25/19 11:39 11/25/19 17:00 11/26/19 03:15 11/26/19 07:41 Glucose (Fingerstick) 121 mg/dL (70-99) 163 mg/dL (70-99) 101 mg/dL (70-99) White Blood Count 7.5 x10^3/uL (4.0-11.0) Red Blood Count 4.42 x10^6/uL (4.30-5.70) Hemoglobin 13.1 g/dL (13.0-17.5) Hematocrit 39.1 % (39.0-53.0) Mean Corpuscular Volume 89 fL (79-100) Mean Corpuscular Hemoglobin 30 pg (25-35) Mean Corpuscular Hemoglobin Concent 33 g/dL (31-37) Red Cell Distribution Width 13.6 % (11.5-14.5) Platelet Count 394 x10^3/uL (140-400) Neutrophils (%) (Auto) 75 % (31-73) Lymphocytes (%) (Auto) 12 % (24-48) Monocytes (%) (Auto) 10 % (0-9) Eosinophils (%) (Auto) 3 % (0-3) Basophils (%) (Auto) 1 % (0-3) Neutrophils # (Auto) 5.6 x10^3/uL (1.8-7.7) Lymphocytes # (Auto) 0.9 x10^3/uL (1.0-4.8) Monocytes # (Auto) 0.7 x10^3/uL (0.0-1.1) Eosinophils # (Auto) 0.2 x10^3/uL (0.0-0.7) Basophils # (Auto) 0.0 x10^3/uL (0.0-0.2) Sodium Level 139 mmol/L (136-145) Potassium Level 4.0 mmol/L (3.5-5.1) Chloride Level 100 mmol/L (98-107) Carbon Dioxide Level 33 mmol/L (21-32) Anion Gap 6 (6-14) Blood Urea Nitrogen 16 mg/dL (8-26) Creatinine 0.7 mg/dL (0.7-1.3) Estimated GFR (Cockcroft-Gault) 117.5 BUN/Creatinine Ratio 23 (6-20) Glucose Level 103 mg/dL (70-99) Calcium Level 8.3 mg/dL (8.5-10.1) Total Bilirubin 0.3 mg/dL (0.2-1.0) Aspartate Amino Transf (AST/SGOT) 97 U/L (15-37) Alanine Aminotransferase (ALT/SGPT) 118 U/L (16-63) Alkaline Phosphatase 211 U/L (46-116) Total Protein 6.7 g/dL (6.4-8.2) Albumin 2.4 g/dL (3.4-5.0) Albumin/Globulin Ratio 0.6 (1.0-1.7) Assessment and Plan Assessmemt and Plan Problems Medical Problems: (1) Compression fracture of L4 vertebra Status: Acute (2) Low back pain Status: Acute (3) Metastatic neoplastic disease Status: Acute (4) Right flank pain Status: Acute Comment Review of Relevant I have reviewed the following items sylvia (where applicable) has been applied. Labs Laboratory Tests Test 11/24/19 10:41 11/24/19 16:41 11/24/19 20:23 11/25/19 07:53 Glucose (Fingerstick) 172 mg/dL (70-99) 151 mg/dL (70-99) 192 mg/dL (70-99) 88 mg/dL (70-99) Test 11/25/19 11:39 11/25/19 17:00 11/26/19 03:15 11/26/19 07:41 Glucose (Fingerstick) 121 mg/dL (70-99) 163 mg/dL (70-99) 101 mg/dL (70-99) White Blood Count 7.5 x10^3/uL (4.0-11.0) Red Blood Count 4.42 x10^6/uL (4.30-5.70) Hemoglobin 13.1 g/dL (13.0-17.5) Hematocrit 39.1 % (39.0-53.0) Mean Corpuscular Volume 89 fL (79-100) Mean Corpuscular Hemoglobin 30 pg (25-35) Mean Corpuscular Hemoglobin Concent 33 g/dL (31-37) Red Cell Distribution Width 13.6 % (11.5-14.5) Platelet Count 394 x10^3/uL (140-400) Neutrophils (%) (Auto) 75 % (31-73) Lymphocytes (%) (Auto) 12 % (24-48) Monocytes (%) (Auto) 10 % (0-9) Eosinophils (%) (Auto) 3 % (0-3) Basophils (%) (Auto) 1 % (0-3) Neutrophils # (Auto) 5.6 x10^3/uL (1.8-7.7) Lymphocytes # (Auto) 0.9 x10^3/uL (1.0-4.8) Monocytes # (Auto) 0.7 x10^3/uL (0.0-1.1) Eosinophils # (Auto) 0.2 x10^3/uL (0.0-0.7) Basophils # (Auto) 0.0 x10^3/uL (0.0-0.2) Sodium Level 139 mmol/L (136-145) Potassium Level 4.0 mmol/L (3.5-5.1) Chloride Level 100 mmol/L (98-107) Carbon Dioxide Level 33 mmol/L (21-32) Anion Gap 6 (6-14) Blood Urea Nitrogen 16 mg/dL (8-26) Creatinine 0.7 mg/dL (0.7-1.3) Estimated GFR (Cockcroft-Gault) 117.5 BUN/Creatinine Ratio 23 (6-20) Glucose Level 103 mg/dL (70-99) Calcium Level 8.3 mg/dL (8.5-10.1) Total Bilirubin 0.3 mg/dL (0.2-1.0) Aspartate Amino Transf (AST/SGOT) 97 U/L (15-37) Alanine Aminotransferase (ALT/SGPT) 118 U/L (16-63) Alkaline Phosphatase 211 U/L (46-116) Total Protein 6.7 g/dL (6.4-8.2) Albumin 2.4 g/dL (3.4-5.0) Albumin/Globulin Ratio 0.6 (1.0-1.7) Laboratory Tests Test 11/25/19 11:39 11/25/19 17:00 11/26/19 03:15 11/26/19 07:41 Glucose (Fingerstick) 121 mg/dL (70-99) 163 mg/dL (70-99) 101 mg/dL (70-99) White Blood Count 7.5 x10^3/uL (4.0-11.0) Red Blood Count 4.42 x10^6/uL (4.30-5.70) Hemoglobin 13.1 g/dL (13.0-17.5) Hematocrit 39.1 % (39.0-53.0) Mean Corpuscular Volume 89 fL (79-100) Mean Corpuscular Hemoglobin 30 pg (25-35) Mean Corpuscular Hemoglobin Concent 33 g/dL (31-37) Red Cell Distribution Width 13.6 % (11.5-14.5) Platelet Count 394 x10^3/uL (140-400) Neutrophils (%) (Auto) 75 % (31-73) Lymphocytes (%) (Auto) 12 % (24-48) Monocytes (%) (Auto) 10 % (0-9) Eosinophils (%) (Auto) 3 % (0-3) Basophils (%) (Auto) 1 % (0-3) Neutrophils # (Auto) 5.6 x10^3/uL (1.8-7.7) Lymphocytes # (Auto) 0.9 x10^3/uL (1.0-4.8) Monocytes # (Auto) 0.7 x10^3/uL (0.0-1.1) Eosinophils # (Auto) 0.2 x10^3/uL (0.0-0.7) Basophils # (Auto) 0.0 x10^3/uL (0.0-0.2) Sodium Level 139 mmol/L (136-145) Potassium Level 4.0 mmol/L (3.5-5.1) Chloride Level 100 mmol/L (98-107) Carbon Dioxide Level 33 mmol/L (21-32) Anion Gap 6 (6-14) Blood Urea Nitrogen 16 mg/dL (8-26) Creatinine 0.7 mg/dL (0.7-1.3) Estimated GFR (Cockcroft-Gault) 117.5 BUN/Creatinine Ratio 23 (6-20) Glucose Level 103 mg/dL (70-99) Calcium Level 8.3 mg/dL (8.5-10.1) Total Bilirubin 0.3 mg/dL (0.2-1.0) Aspartate Amino Transf (AST/SGOT) 97 U/L (15-37) Alanine Aminotransferase (ALT/SGPT) 118 U/L (16-63) Alkaline Phosphatase 211 U/L (46-116) Total Protein 6.7 g/dL (6.4-8.2) Albumin 2.4 g/dL (3.4-5.0) Albumin/Globulin Ratio 0.6 (1.0-1.7) Medications Current Medications Sodium Chloride 1,000 ml @ 1,000 mls/hr Q1H IV Last administered on 11/21/19at 21:54; Start 11/21/19 at 21:30; Stop 11/21/19 at 22:29; Status DC Ondansetron HCl (Zofran) 4 mg 1X ONCE IVP Last administered on 11/21/19at 21:54; Start 11/21/19 at 21:30; Stop 11/21/19 at 21:31; Status DC Ketorolac Tromethamine (Toradol 30mg Vial) 30 mg 1X ONCE IVP Last administered on 11/21/19at 21:55; Start 11/21/19 at 21:30; Stop 11/21/19 at 21:31; Status DC Ondansetron HCl (Zofran) 4 mg PRN Q8HRS PRN IV NAUSEA/VOMITING; Start 11/21/19 at 23:30; Stop 11/22/19 at 06:04; Status DC Morphine Sulfate (Morphine Sulfate) 4 mg PRN Q2HR PRN IV PAIN Last administered on 11/26/19at 10:02; Start 11/21/19 at 23:30 Ondansetron HCl (Zofran) 4 mg PRN Q4HRS PRN IV NAUSEA/VOMITING Last administered on 11/25/19at 09:05; Start 11/22/19 at 06:00 Aspirin (Aspirin Chewable) 81 mg DAILYWBKFT PO Last administered on 11/26/19 08:57; Start 11/22/19 at 08:00 Atorvastatin Calcium (Lipitor) 20 mg HS PO ; Start 11/22/19 at 21:00; Stop 11/22/19 at 09:35; Status DC Docusate Sodium (Colace) 100 mg BID PO Last administered on 11/26/19 08:57; Start 11/22/19 at 09:00 Acetaminophen/ Hydrocodone Bitart (Lortab 5/325) 1 tab PRN Q4HRS PRN PO MODERATE PAIN 4-6 Last administered on 11/26/19at 05:48; Start 11/22/19 at 06:00 Ibuprofen (Motrin) 400 mg PRN Q6HRS PRN PO INFLAMMATION Last administered on 11/26/19at 08:58; Start 11/22/19 at 06:00 Fentanyl (Duragesic 12mcg/ Hr Patch) 1 patch Q3DAYS TD Last administered on 11/25/19at 07:59; Start 11/22/19 at 09:00 Enoxaparin Sodium (Lovenox 40mg Syringe) 40 mg Q24H SQ Last administered on 11/22/19at 08:35; Start 11/22/19 at 10:00; Stop 11/22/19 at 17:03; Status DC Insulin Human Lispro (HumaLOG) 0-7 UNITS TIDACHC SQ Last administered on 11/25/19at 17:10; Start 11/22/19 at 07:30 Dextrose (Dextrose 50%-Water Syringe) 12.5 gm PRN Q15MIN PRN IV SEE COMMENTS; Start 11/22/19 at 06:00 Potassium Chloride (Klor-Con) 40 meq 1X ONCE PO Last administered on 11/22/19at 16:12; Start 11/22/19 at 14:00; Stop 11/22/19 at 14:01; Status DC Iohexol (Omnipaque 240 Mg/ml) 50 ml STK-MED ONCE .ROUTE ; Start 11/23/19 at 11:28; Stop 11/23/19 at 11:28; Status DC Lidocaine HCl 20 ml STK-MED ONCE .ROUTE ; Start 11/23/19 at 11:28; Stop 11/23/19 at 11:28; Status DC Cefazolin Sodium (Ancef) 1 gm STK-MED ONCE IVP ; Start 11/23/19 at 14:09; Stop 11/23/19 at 14:09; Status DC Midazolam HCl (Versed) 5 mg STK-MED ONCE .ROUTE ; Start 11/23/19 at 14:09; Stop 11/23/19 at 14:09; Status DC Fentanyl Citrate (Fentanyl 2ml Vial) 100 mcg STK-MED ONCE .ROUTE ; Start 11/23/19 at 14:09; Stop 11/23/19 at 14:09; Status DC Midazolam HCl (Versed) 5 mg 1X ONCE IV Last administered on 11/23/19at 15:33; Start 11/23/19 at 15:15; Stop 11/23/19 at 15:30; Status DC Fentanyl Citrate (Fentanyl 2ml Vial) 100 mcg 1X ONCE IV Last administered on 11/23/19at 15:34; Start 11/23/19 at 15:15; Stop 11/23/19 at 15:30; Status DC Lidocaine HCl (Lidocaine 1% 20ml Vial) 20 ml 1X ONCE INJ ; Start 11/23/19 at 15:15; Stop 11/23/19 at 15:16; Status Cancel Iohexol (Omnipaque 240 Mg/ml) 50 ml 1X ONCE IJ Last administered on 11/23/19at 15:32; Start 11/23/19 at 15:15; Stop 11/23/19 at 15:30; Status DC Cefazolin Sodium (Ancef) 1 gm 1X ONCE IVP Last administered on 11/23/19at 15:33; Start 11/23/19 at 15:15; Stop 11/23/19 at 15:30; Status DC Lidocaine HCl 20 ml 1X ONCE IJ ; Start 11/23/19 at 15:45; Stop 11/23/19 at 15:46; Status DC Active Scripts Active Reported Colace (Docusate Sodium) 100 Mg Capsule 1 Cap PO BID [place] 5-325 Tablet (Acetaminophen/Hydrocodone Bitart) 1 Each Tablet 1 Tab PO Q4- 6HRS Ibuprofen 400 Mg Tablet 400 Mg PO PRN Q6HRS PRN Atorvastatin Calcium 20 Mg Tablet 1 Tab PO DAILY Aspirin 81 Mg Tab.chew 1 Tab PO DAILY Metformin Hcl 500 Mg Tablet 500 Mg PO BIDWMEALS Vitals/I & O Vital Sign - Last 24 Hours 11/25/19 11/25/19 11/25/19 11/25/19 11:00 12:54 15:00 15:45 Temp 98.3 98.9 98.3 98.9 Pulse 80 90 Resp 18 18 B/P (MAP) 117/76 (90) 106/71 (83) Pulse Ox 93 92 O2 Delivery Room Air Room Air Room Air Room Air 11/25/19 11/25/19 11/25/19 11/25/19 17:11 19:00 20:00 20:01 Temp 98.2 98.2 Pulse 84 Resp 18 B/P (MAP) 103/77 (86) Pulse Ox 96 O2 Delivery Room Air Room Air Room Air Room Air 11/25/19 11/25/19 11/26/19 11/26/19 21:01 23:00 00:05 01:05 Temp 98.1 98.1 Pulse 81 Resp 18 B/P (MAP) 104/55 (71) Pulse Ox 93 O2 Delivery Room Air Room Air Room Air Room Air 11/26/19 11/26/19 11/26/19 11/26/19 02:01 02:31 03:00 05:48 Temp 99.1 99.1 Pulse 81 Resp 18 B/P (MAP) 115/56 (75) Pulse Ox 93 O2 Delivery Room Air Room Air Room Air Room Air 11/26/19 11/26/19 11/26/19 11/26/19 06:30 06:48 06:48 07:00 Temp 98.4 98.4 Pulse 70 Resp 18 B/P (MAP) 128/65 (86) Pulse Ox 94 O2 Delivery Room Air Room Air Room Air Room Air Intake and Output 11/25/19 11/25/19 11/26/19 15:00 23:00 07:00 Intake Total 800 ml 400 ml 100 ml Output Total 475 ml Balance 800 ml 400 ml -375 ml KELLY RUSSO MD November 26, 2019 10:16
--- NOTE | 2019-11-26 10:41 | NUR ---
SW following. Discussed with RN, pt from home alone. Some discussion about a port, however RN spoke with pt's DPOA, she does not want a port. Physician will be speaking with pt's DPOA to determine plan of care. Oncology consulted - cancer - mets. SW will continue to follow.
[2019-11-26 11:00] VITALS: BP 99/72
--- NOTE | 2019-11-26 12:49 | PDOC ---
PULMONARY PROGRESS NOTES Subjective no diaz no CP s/p l4 bx, back pain better Vitals Vital Signs Date Time Temp Pulse Resp B/P (MAP) Pulse Ox O2 Delivery O2 Flow Rate FiO2 11/26/19 11:00 97.8 74 18 99/72 (81) 95 Room Air 97.8 ROS: No Chest Pain, No Abdominal Pain, No Increase Cough General: Alert, No acute distress Lungs: Clear Cardiovascular: S1, S2 Abdomen: Soft, Non-tender Neuro Exam: Alert Extremities: No Edema Skin: Warm Labs Laboratory Tests Test 11/24/19 16:41 11/24/19 20:23 11/25/19 07:53 11/25/19 11:39 Glucose (Fingerstick) 151 mg/dL (70-99) 192 mg/dL (70-99) 88 mg/dL (70-99) 121 mg/dL (70-99) Test 11/25/19 17:00 11/26/19 03:15 11/26/19 07:41 11/26/19 11:34 Glucose (Fingerstick) 163 mg/dL (70-99) 101 mg/dL (70-99) 98 mg/dL (70-99) White Blood Count 7.5 x10^3/uL (4.0-11.0) Red Blood Count 4.42 x10^6/uL (4.30-5.70) Hemoglobin 13.1 g/dL (13.0-17.5) Hematocrit 39.1 % (39.0-53.0) Mean Corpuscular Volume 89 fL (79-100) Mean Corpuscular Hemoglobin 30 pg (25-35) Mean Corpuscular Hemoglobin Concent 33 g/dL (31-37) Red Cell Distribution Width 13.6 % (11.5-14.5) Platelet Count 394 x10^3/uL (140-400) Neutrophils (%) (Auto) 75 % (31-73) Lymphocytes (%) (Auto) 12 % (24-48) Monocytes (%) (Auto) 10 % (0-9) Eosinophils (%) (Auto) 3 % (0-3) Basophils (%) (Auto) 1 % (0-3) Neutrophils # (Auto) 5.6 x10^3/uL (1.8-7.7) Lymphocytes # (Auto) 0.9 x10^3/uL (1.0-4.8) Monocytes # (Auto) 0.7 x10^3/uL (0.0-1.1) Eosinophils # (Auto) 0.2 x10^3/uL (0.0-0.7) Basophils # (Auto) 0.0 x10^3/uL (0.0-0.2) Sodium Level 139 mmol/L (136-145) Potassium Level 4.0 mmol/L (3.5-5.1) Chloride Level 100 mmol/L (98-107) Carbon Dioxide Level 33 mmol/L (21-32) Anion Gap 6 (6-14) Blood Urea Nitrogen 16 mg/dL (8-26) Creatinine 0.7 mg/dL (0.7-1.3) Estimated GFR (Cockcroft-Gault) 117.5 BUN/Creatinine Ratio 23 (6-20) Glucose Level 103 mg/dL (70-99) Calcium Level 8.3 mg/dL (8.5-10.1) Total Bilirubin 0.3 mg/dL (0.2-1.0) Aspartate Amino Transf (AST/SGOT) 97 U/L (15-37) Alanine Aminotransferase (ALT/SGPT) 118 U/L (16-63) Alkaline Phosphatase 211 U/L (46-116) Total Protein 6.7 g/dL (6.4-8.2) Albumin 2.4 g/dL (3.4-5.0) Albumin/Globulin Ratio 0.6 (1.0-1.7) Laboratory Tests Test 11/25/19 17:00 11/26/19 03:15 11/26/19 07:41 11/26/19 11:34 Glucose (Fingerstick) 163 mg/dL (70-99) 101 mg/dL (70-99) 98 mg/dL (70-99) White Blood Count 7.5 x10^3/uL (4.0-11.0) Red Blood Count 4.42 x10^6/uL (4.30-5.70) Hemoglobin 13.1 g/dL (13.0-17.5) Hematocrit 39.1 % (39.0-53.0) Mean Corpuscular Volume 89 fL (79-100) Mean Corpuscular Hemoglobin 30 pg (25-35) Mean Corpuscular Hemoglobin Concent 33 g/dL (31-37) Red Cell Distribution Width 13.6 % (11.5-14.5) Platelet Count 394 x10^3/uL (140-400) Neutrophils (%) (Auto) 75 % (31-73) Lymphocytes (%) (Auto) 12 % (24-48) Monocytes (%) (Auto) 10 % (0-9) Eosinophils (%) (Auto) 3 % (0-3) Basophils (%) (Auto) 1 % (0-3) Neutrophils # (Auto) 5.6 x10^3/uL (1.8-7.7) Lymphocytes # (Auto) 0.9 x10^3/uL (1.0-4.8) Monocytes # (Auto) 0.7 x10^3/uL (0.0-1.1) Eosinophils # (Auto) 0.2 x10^3/uL (0.0-0.7) Basophils # (Auto) 0.0 x10^3/uL (0.0-0.2) Sodium Level 139 mmol/L (136-145) Potassium Level 4.0 mmol/L (3.5-5.1) Chloride Level 100 mmol/L (98-107) Carbon Dioxide Level 33 mmol/L (21-32) Anion Gap 6 (6-14) Blood Urea Nitrogen 16 mg/dL (8-26) Creatinine 0.7 mg/dL (0.7-1.3) Estimated GFR (Cockcroft-Gault) 117.5 BUN/Creatinine Ratio 23 (6-20) Glucose Level 103 mg/dL (70-99) Calcium Level 8.3 mg/dL (8.5-10.1) Total Bilirubin 0.3 mg/dL (0.2-1.0) Aspartate Amino Transf (AST/SGOT) 97 U/L (15-37) Alanine Aminotransferase (ALT/SGPT) 118 U/L (16-63) Alkaline Phosphatase 211 U/L (46-116) Total Protein 6.7 g/dL (6.4-8.2) Albumin 2.4 g/dL (3.4-5.0) Albumin/Globulin Ratio 0.6 (1.0-1.7) Medications Active Scripts Medications Dose Route/Sig Max Daily Dose Days Date Category Colace (Docusate Sodium) 100 Mg Capsule 1 Cap PO BID 03/07/19 Reported [place] 5-325 Tablet (Acetaminophen/Hydrocodone Bitart) 1 Each Tablet 1 Tab PO Q4-6HRS 03/07/19 Reported Ibuprofen 400 Mg Tablet 400 Mg PO PRN Q6HRS PRN 03/07/19 Reported Atorvastatin Calcium 20 Mg Tablet 1 Tab PO DAILY 03/07/19 Reported Aspirin 81 Mg Tab.chew 1 Tab PO DAILY 03/07/19 Reported Metformin Hcl 500 Mg Tablet 500 Mg PO BIDWMEALS 03/07/19 Reported Impression . 1. Abnormal CT chest with multiple nodules throughout the lungs and lesions in the liver. He also has CT abdomen and pelvis, which showed abdominal adenopathy and bony lesions, especially L4 compression fracture. He likely has metastatic disease. He had a history of melanoma removed from the lower back 6 to 8 months ago. Could be a primary lesion. fu path 2. No significant tobacco history. 3. No significant weight loss. 4. H/O TBI with development delay. Plan . Pathology pending. Patient in no respiratory distress 1. s/p biopsy of the L4. fu path 2. Once the biopsy confirms malignancy, we will assess for treatment option. 3. Consult Oncology. 4. restart Lovenox for dvt prophaylxis 5. Discussed with RN, pt . YON KEMP MD November 26, 2019 12:49
--- NOTE | 2019-11-26 12:51 | RAD ---
Fluoroscopically guided kyphoplasty November 23, 2019 Indication:Pathologic fracture of L4 secondary to unknown primary malignancy.. Patient has severe pain which is refractory to conservative treatment measures. Moderate sedation: The patient was appropriately monitored by a qualified independent observer throughout the course of the moderate sedation. [id number] sedation time:69 minutes Consent: The risks and benefits of the procedure were discussed with the patient. Informed consent was obtained. The patient was brought to the fluoroscopy suite and placed in the prone position. A timeout procedure was performed. Preprocedural antibiotics were administered. Procedure: The overlying skin was prepped and draped in the usual sterile fashion. All elements of maximal sterile barrier technique including the use of a cap, mask, sterile gown, sterile gloves, large sterile sheet, appropriate hand hygiene, and 2% chlorhexidine for cutaneous antisepsis (or acceptable alternative antiseptic per current guidelines) were followed for this procedure. Using a right-sided transpedicular approach, and direct fluoroscopic guidance, a trocar needle was advanced to the posterior targeted vertebral body. A core biopsy was obtained using a control device. This needle was then exchanged for a standard vertebroplasty cannula through which a Vertebral augmentation balloon was then coaxially introduced through the needle, into the more central vertebral body and was deployed. A curved cement delivery needle was advanced into the contralateral vertebral body. Contrast opacified polymethylmethacrylate was then very slowly and carefully introduced through the vertebral augmentation needle, using strict fluoroscopic control. Once adequate filling had been achieved the needles were removed and manual pressure was held. No significant extravasation or complication was identified. Sterile dressing was applied. Patient tolerated the procedure well, without apparent complication Total fluoroscopy time: 12.5 Min Dose area product:: 95 Gycm2 Impression: 1. Fluoroscopically guided biopsy, L4 2. L4 kyphoplasty
[2019-11-26 14:55] VITALS: BP 113/80
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
[2019-11-26 19:00] VITALS: BP 113/84
[2019-11-26 23:00] VITALS: BP 106/69
[2019-11-27 03:00] VITALS: BP 112/87
[2019-11-27] MEDS: HYDROcodone/APAP 5/325MG 1 TAB TABLET PO PRN ×3 (03:41→17:26)
[2019-11-27 07:00] VITALS: BP 118/75
[2019-11-27] MEDS ORDERED: IV RINGERS,LACTATED 1000ML 1,000 ML IV SCH (07:00)
[2019-11-27] MEDS ORDERED: HYDROmorphone 2 MG/ML VIAL IV PRN (07:00)
[2019-11-27] MEDS ORDERED: fentaNYL PF VIAL 100 MCG/2 ML VIAL IV PRN ×2 (07:00)
[2019-11-27] MEDS ORDERED: ONDANSETRON PF 4 MG/2 ML VIAL. IV PRN (07:00)
[2019-11-27] MEDS ORDERED: LIDOCAINE 1% PF 2 ML VIAL. ID PRN (07:00)
[2019-11-27] MEDS ORDERED: PROCHLORPERAZINE 10 MG/2 ML VIAL. IV PRN (07:00)
[2019-11-27] MEDS ORDERED: MORPHINE SULFATE 2 MG/ML VIAL. IV PRN (07:00)
[2019-11-27] MEDS: INSULIN LISPRO 300 UNITS/3 ML VIAL. SQ SCH ×4 (07:30→21:00)
--- NOTE | 2019-11-27 08:24 | PDOC ---
PULMONARY PROGRESS NOTES Subjective no diaz no CP s/p l4 bx, back pain better Vitals Vital Signs Date Time Temp Pulse Resp B/P (MAP) Pulse Ox O2 Delivery O2 Flow Rate FiO2 11/27/19 07:00 100.9 88 20 118/75 (89) 91 Room Air 100.9 ROS: No Chest Pain, No Abdominal Pain, No Increase Cough General: Alert, No acute distress Lungs: Clear Cardiovascular: S1, S2 Abdomen: Soft, Non-tender Neuro Exam: Alert Extremities: No Edema Skin: Warm Labs Laboratory Tests Test 11/25/19 11:39 11/25/19 17:00 11/26/19 03:15 11/26/19 07:41 Glucose (Fingerstick) 121 mg/dL (70-99) 163 mg/dL (70-99) 101 mg/dL (70-99) White Blood Count 7.5 x10^3/uL (4.0-11.0) Red Blood Count 4.42 x10^6/uL (4.30-5.70) Hemoglobin 13.1 g/dL (13.0-17.5) Hematocrit 39.1 % (39.0-53.0) Mean Corpuscular Volume 89 fL (79-100) Mean Corpuscular Hemoglobin 30 pg (25-35) Mean Corpuscular Hemoglobin Concent 33 g/dL (31-37) Red Cell Distribution Width 13.6 % (11.5-14.5) Platelet Count 394 x10^3/uL (140-400) Neutrophils (%) (Auto) 75 % (31-73) Lymphocytes (%) (Auto) 12 % (24-48) Monocytes (%) (Auto) 10 % (0-9) Eosinophils (%) (Auto) 3 % (0-3) Basophils (%) (Auto) 1 % (0-3) Neutrophils # (Auto) 5.6 x10^3/uL (1.8-7.7) Lymphocytes # (Auto) 0.9 x10^3/uL (1.0-4.8) Monocytes # (Auto) 0.7 x10^3/uL (0.0-1.1) Eosinophils # (Auto) 0.2 x10^3/uL (0.0-0.7) Basophils # (Auto) 0.0 x10^3/uL (0.0-0.2) Sodium Level 139 mmol/L (136-145) Potassium Level 4.0 mmol/L (3.5-5.1) Chloride Level 100 mmol/L (98-107) Carbon Dioxide Level 33 mmol/L (21-32) Anion Gap 6 (6-14) Blood Urea Nitrogen 16 mg/dL (8-26) Creatinine 0.7 mg/dL (0.7-1.3) Estimated GFR (Cockcroft-Gault) 117.5 BUN/Creatinine Ratio 23 (6-20) Glucose Level 103 mg/dL (70-99) Calcium Level 8.3 mg/dL (8.5-10.1) Total Bilirubin 0.3 mg/dL (0.2-1.0) Aspartate Amino Transf (AST/SGOT) 97 U/L (15-37) Alanine Aminotransferase (ALT/SGPT) 118 U/L (16-63) Alkaline Phosphatase 211 U/L (46-116) Total Protein 6.7 g/dL (6.4-8.2) Albumin 2.4 g/dL (3.4-5.0) Albumin/Globulin Ratio 0.6 (1.0-1.7) Test 11/26/19 11:34 11/26/19 16:49 11/26/19 21:03 11/27/19 07:23 Glucose (Fingerstick) 98 mg/dL (70-99) 133 mg/dL (70-99) 101 mg/dL (70-99) 102 mg/dL (70-99) Laboratory Tests Test 11/26/19 11:34 11/26/19 16:49 11/26/19 21:03 11/27/19 07:23 Glucose (Fingerstick) 98 mg/dL (70-99) 133 mg/dL (70-99) 101 mg/dL (70-99) 102 mg/dL (70-99) Medications Active Scripts Medications Dose Route/Sig Max Daily Dose Days Date Category Colace (Docusate Sodium) 100 Mg Capsule 1 Cap PO BID 03/07/19 Reported [place] 5-325 Tablet (Acetaminophen/Hydrocodone Bitart) 1 Each Tablet 1 Tab PO Q4-6HRS 03/07/19 Reported Ibuprofen 400 Mg Tablet 400 Mg PO PRN Q6HRS PRN 8/28/19 Reported Atorvastatin Calcium 20 Mg Tablet 1 Tab PO DAILY 03/07/19 Reported Aspirin 81 Mg Tab.chew 1 Tab PO DAILY 03/07/19 Reported Metformin Hcl 500 Mg Tablet 500 Mg PO BIDWMEALS 03/07/19 Reported Impression . 1. Abnormal CT chest with multiple nodules throughout the lungs and lesions in the liver. He also has CT abdomen and pelvis, which showed abdominal adenopathy and bony lesions, especially L4 compression fracture. He likely has metastatic disease. He had a history of melanoma removed from the lower back 6 to 8 months ago. Could be a primary lesion. fu path 2. No significant tobacco history. 3. No significant weight loss. 4. H/O TBI with development delay. Plan . Pathology pending. Patient in no respiratory distress Oncology consult pending YON KEMP MD November 27, 2019 08:24
[2019-11-27] MEDS: ASPIRIN CHEWABLE 81 MG TABLET. PO SCH (08:50)
[2019-11-27] MEDS: IBUPROFEN 400 MG TABLET. PO PRN (08:51)
[2019-11-27] MEDS: DOCUSATE SODIUM 100 MG CAPSULE. PO SCH ×2 (08:51→21:12)
--- NOTE | 2019-11-27 09:05 | NUR ---
SW following. Discussed with RN, PATRICK wanting to wait on biopsy results before deciding plan of care. SW will continue to follow.
--- NOTE | 2019-11-27 09:59 | PDOC ---
PROGRESS NOTES Chief Complaint Chief Complaint IMPRESSION Metastatic Cancer, unknown primary //suspect melanoma as primary Extensive anthony and pulmonary parenchymal metastatic disease. Pathologic compression fracture at the L4 vertebral body. Osteolytic lesions at L4 and at L5, highly suspicious for osteolytic metastatic deposits with associated pathologic fracture and mild asymmetric right-sided loss of height at L4. Fluoroscopically guided biopsy, L4 done L4 kyphoplasty done DM2, non insulin dependent HLD, on statin therapy Pain secondary to bone mets Hypokalemia Hyponatremia Elevated LFTs hx of melanoma history of melanoma removed from the lower back 6 to 8 months hx of TBI PLAN - check MRI brain 11/25 OK WITH DPOA 11/25 by phone consent - CT chest, CT cervical, lumbar and thoracic spine done. no mets in cervical or thoracic spine. - check CEA CA19-9. PSA normal - onc consulted. recommending placing port - pulm consulted - ortho consult for compression fracture eval - IR consult for lumbar bx. path pending - stop statin given elevated LFTs - SSI - hold ASA, no cardiac hx. - IV and PO pain meds available - dvt ppx: lovenox on hold for bx - PT eval - CONSULT ONCOLOGY - Left axillary mass biopsy with IR, to be arranged now in hospital - FULL CODE D/W DPOA // JAMIE ALLEN [phone] WANTS TO WAIT FOR PORT PLACEMENT until pathology back from bx 38 MIN pt exam, chart review, > 50% of time spent with exam, chart review, pt care coordination History of Present Illness History of Present Illness no issues overnight. awaiting MRI HEAD . s/p l4 bx, back pain FAIR Vitals Vitals Vital Signs Date Time Temp Pulse Resp B/P (MAP) Pulse Ox O2 Delivery O2 Flow Rate FiO2 11/27/19 08:51 Room Air 11/27/19 07:00 100.9 88 20 118/75 (89) 91 100.9 Physical Exam General: No acute distress Heart: Regular rate, Normal S1 Lungs: Clear Abdomen: Normal bowel sounds, Soft, No tenderness, No hepatosplenomegaly, No masses Extremities: No clubbing, No tenderness/swelling Skin: No rashes, No significant lesion Labs LABS Laboratory Tests Test 11/26/19 11:34 11/26/19 16:49 11/26/19 21:03 11/27/19 07:23 Glucose (Fingerstick) 98 mg/dL (70-99) 133 mg/dL (70-99) 101 mg/dL (70-99) 102 mg/dL (70-99) Assessment and Plan Assessmemt and Plan Problems Medical Problems: (1) Compression fracture of L4 vertebra Status: Acute (2) Low back pain Status: Acute (3) Metastatic neoplastic disease Status: Acute (4) Right flank pain Status: Acute Comment Review of Relevant I have reviewed the following items sylvia (where applicable) has been applied. Labs Laboratory Tests Test 11/25/19 11:39 11/25/19 17:00 11/26/19 03:15 11/26/19 07:41 Glucose (Fingerstick) 121 mg/dL (70-99) 163 mg/dL (70-99) 101 mg/dL (70-99) White Blood Count 7.5 x10^3/uL (4.0-11.0) Red Blood Count 4.42 x10^6/uL (4.30-5.70) Hemoglobin 13.1 g/dL (13.0-17.5) Hematocrit 39.1 % (39.0-53.0) Mean Corpuscular Volume 89 fL (79-100) Mean Corpuscular Hemoglobin 30 pg (25-35) Mean Corpuscular Hemoglobin Concent 33 g/dL (31-37) Red Cell Distribution Width 13.6 % (11.5-14.5) Platelet Count 394 x10^3/uL (140-400) Neutrophils (%) (Auto) 75 % (31-73) Lymphocytes (%) (Auto) 12 % (24-48) Monocytes (%) (Auto) 10 % (0-9) Eosinophils (%) (Auto) 3 % (0-3) Basophils (%) (Auto) 1 % (0-3) Neutrophils # (Auto) 5.6 x10^3/uL (1.8-7.7) Lymphocytes # (Auto) 0.9 x10^3/uL (1.0-4.8) Monocytes # (Auto) 0.7 x10^3/uL (0.0-1.1) Eosinophils # (Auto) 0.2 x10^3/uL (0.0-0.7) Basophils # (Auto) 0.0 x10^3/uL (0.0-0.2) Sodium Level 139 mmol/L (136-145) Potassium Level 4.0 mmol/L (3.5-5.1) Chloride Level 100 mmol/L (98-107) Carbon Dioxide Level 33 mmol/L (21-32) Anion Gap 6 (6-14) Blood Urea Nitrogen 16 mg/dL (8-26) Creatinine 0.7 mg/dL (0.7-1.3) Estimated GFR (Cockcroft-Gault) 117.5 BUN/Creatinine Ratio 23 (6-20) Glucose Level 103 mg/dL (70-99) Calcium Level 8.3 mg/dL (8.5-10.1) Total Bilirubin 0.3 mg/dL (0.2-1.0) Aspartate Amino Transf (AST/SGOT) 97 U/L (15-37) Alanine Aminotransferase (ALT/SGPT) 118 U/L (16-63) Alkaline Phosphatase 211 U/L (46-116) Total Protein 6.7 g/dL (6.4-8.2) Albumin 2.4 g/dL (3.4-5.0) Albumin/Globulin Ratio 0.6 (1.0-1.7) Test 11/26/19 11:34 11/26/19 16:49 11/26/19 21:03 11/27/19 07:23 Glucose (Fingerstick) 98 mg/dL (70-99) 133 mg/dL (70-99) 101 mg/dL (70-99) 102 mg/dL (70-99) Laboratory Tests Test 11/26/19 11:34 11/26/19 16:49 11/26/19 21:03 11/27/19 07:23 Glucose (Fingerstick) 98 mg/dL (70-99) 133 mg/dL (70-99) 101 mg/dL (70-99) 102 mg/dL (70-99) Medications Current Medications Sodium Chloride 1,000 ml @ 1,000 mls/hr Q1H IV Last administered on 11/21/19at 21:54; Start 11/21/19 at 21:30; Stop 11/21/19 at 22:29; Status DC Ondansetron HCl (Zofran) 4 mg 1X ONCE IVP Last administered on 11/21/19at 21:54; Start 11/21/19 at 21:30; Stop 11/21/19 at 21:31; Status DC Ketorolac Tromethamine (Toradol 30mg Vial) 30 mg 1X ONCE IVP Last administered on 11/21/19at 21:55; Start 11/21/19 at 21:30; Stop 11/21/19 at 21:31; Status DC Ondansetron HCl (Zofran) 4 mg PRN Q8HRS PRN IV NAUSEA/VOMITING; Start 11/21/19 at 23:30; Stop 11/22/19 at 06:04; Status DC Morphine Sulfate (Morphine Sulfate) 4 mg PRN Q2HR PRN IV PAIN Last administered on 11/26/19at 13:46; Start 11/21/19 at 23:30 Ondansetron HCl (Zofran) 4 mg PRN Q4HRS PRN IV NAUSEA/VOMITING Last administered on 11/25/19at 09:05; Start 11/22/19 at 06:00 Aspirin (Aspirin Chewable) 81 mg DAILYWBKFT PO Last administered on 11/27/19at 08:50; Start 11/22/19 at 08:00 Atorvastatin Calcium (Lipitor) 20 mg HS PO ; Start 11/22/19 at 21:00; Stop 11/22/19 at 09:35; Status DC Docusate Sodium (Colace) 100 mg BID PO Last administered on 11/27/19 08:51; Start 11/22/19 at 09:00 Acetaminophen/ Hydrocodone Bitart (Lortab 5/325) 1 tab PRN Q4HRS PRN PO MODERATE PAIN 4-6 Last administered on 11/27/19at 08:51; Start 11/22/19 at 06:00 Ibuprofen (Motrin) 400 mg PRN Q6HRS PRN PO INFLAMMATION Last administered on 11/27/19at 08:51; Start 11/22/19 at 06:00 Fentanyl (Duragesic 12mcg/ Hr Patch) 1 patch Q3DAYS TD Last administered on 11/25/19at 07:59; Start 11/22/19 at 09:00 Enoxaparin Sodium (Lovenox 40mg Syringe) 40 mg Q24H SQ Last administered on 11/22/19at 08:35; Start 11/22/19 at 10:00; Stop 11/22/19 at 17:03; Status DC Insulin Human Lispro (HumaLOG) 0-7 UNITS TIDACHC SQ Last administered on 11/25/19at 17:10; Start 11/22/19 at 07:30 Dextrose (Dextrose 50%-Water Syringe) 12.5 gm PRN Q15MIN PRN IV SEE COMMENTS; Start 11/22/19 at 06:00 Potassium Chloride (Klor-Con) 40 meq 1X ONCE PO Last administered on 11/22/19at 16:12; Start 11/22/19 at 14:00; Stop 11/22/19 at 14:01; Status DC Iohexol (Omnipaque 240 Mg/ml) 50 ml STK-MED ONCE .ROUTE ; Start 11/23/19 at 11:28; Stop 11/23/19 at 11:28; Status DC Lidocaine HCl 20 ml STK-MED ONCE .ROUTE ; Start 11/23/19 at 11:28; Stop 11/23/19 at 11:28; Status DC Cefazolin Sodium (Ancef) 1 gm STK-MED ONCE IVP ; Start 11/23/19 at 14:09; Stop 11/23/19 at 14:09; Status DC Midazolam HCl (Versed) 5 mg STK-MED ONCE .ROUTE ; Start 11/23/19 at 14:09; Stop 11/23/19 at 14:09; Status DC Fentanyl Citrate (Fentanyl 2ml Vial) 100 mcg STK-MED ONCE .ROUTE ; Start 11/23/19 at 14:09; Stop 11/23/19 at 14:09; Status DC Midazolam HCl (Versed) 5 mg 1X ONCE IV Last administered on 11/23/19at 15:33; Start 11/23/19 at 15:15; Stop 11/23/19 at 15:30; Status DC Fentanyl Citrate (Fentanyl 2ml Vial) 100 mcg 1X ONCE IV Last administered on 11/23/19at 15:34; Start 11/23/19 at 15:15; Stop 11/23/19 at 15:30; Status DC Lidocaine HCl (Lidocaine 1% 20ml Vial) 20 ml 1X ONCE INJ ; Start 11/23/19 at 15:15; Stop 11/23/19 at 15:16; Status Cancel Iohexol (Omnipaque 240 Mg/ml) 50 ml 1X ONCE IJ Last administered on 11/23/19at 15:32; Start 11/23/19 at 15:15; Stop 11/23/19 at 15:30; Status DC Cefazolin Sodium (Ancef) 1 gm 1X ONCE IVP Last administered on 11/23/19at 15:33; Start 11/23/19 at 15:15; Stop 11/23/19 at 15:30; Status DC Lidocaine HCl 20 ml 1X ONCE IJ ; Start 11/23/19 at 15:45; Stop 11/23/19 at 15:46; Status DC Ondansetron HCl (Zofran) 4 mg PRN Q6HRS PRN IV NAUSEA/VOMITING; Start 11/27/19 at 07:00; Stop 11/28/19 at 06:59 Fentanyl Citrate (Fentanyl 2ml Vial) 25 mcg PRN Q5MIN PRN IV MILD PAIN 1-3; Start 11/27/19 at 07:00; Stop 11/28/19 at 06:59 Fentanyl Citrate (Fentanyl 2ml Vial) 50 mcg PRN Q5MIN PRN IV MODERATE TO SEVERE PAIN; Start 11/27/19 at 07:00; Stop 11/28/19 at 06:59 Morphine Sulfate (Morphine Sulfate) 1 mg PRN Q10MIN PRN IV SEVERE PAIN 7-10; Start 11/27/19 at 07:00; Stop 11/28/19 at 06:59 Ringer's Solution 1,000 ml @ 30 mls/hr Q24H IV ; Start 11/27/19 at 07:00; Stop 11/27/19 at 18:59 Lidocaine HCl (Xylocaine-Mpf 1% 2ml Vial) 2 ml PRN 1X PRN ID PRIOR TO IV START; Start 11/27/19 at 07:00; Stop 11/28/19 at 06:59 Hydromorphone HCl (Dilaudid) 0.5 mg PRN Q10MIN PRN IV SEV PAIN, Second choice; Start 11/27/19 at 07:00; Stop 11/28/19 at 06:59 Prochlorperazine Edisylate (Compazine) 5 mg PACU PRN PRN IV NAUSEA, MRX1; Start 11/27/19 at 07:00; Stop 11/28/19 at 06:59 Active Scripts Active Reported Colace (Docusate Sodium) 100 Mg Capsule 1 Cap PO BID [place] 5-325 Tablet (Acetaminophen/Hydrocodone Bitart) 1 Each Tablet 1 Tab PO Q4- 6HRS Ibuprofen 400 Mg Tablet 400 Mg PO PRN Q6HRS PRN Atorvastatin Calcium 20 Mg Tablet 1 Tab PO DAILY Aspirin 81 Mg Tab.chew 1 Tab PO DAILY Metformin Hcl 500 Mg Tablet 500 Mg PO BIDWMEALS Vitals/I & O Vital Sign - Last 24 Hours 11/26/19 11/26/19 11/26/19 11/26/19 11:00 14:55 16:49 19:00 Temp 97.8 97.9 99.8 97.8 97.9 99.8 Pulse 74 97 95 Resp 18 20 18 B/P (MAP) 99/72 (81) 113/80 (91) 113/84 (94) Pulse Ox 95 96 96 O2 Delivery Room Air Room Air Room Air Room Air 11/26/19 11/26/19 11/26/19 11/26/19 20:10 21:04 22:00 23:00 Temp 99.3 99.3 Pulse 98 Resp 18 B/P (MAP) 106/69 (81) Pulse Ox 94 O2 Delivery Room Air Room Air Room Air Room Air 11/27/19 11/27/19 11/27/19 11/27/19 03:00 03:41 04:45 07:00 Temp 100.1 100.9 100.1 100.9 Pulse 102 88 Resp 18 20 B/P (MAP) 112/87 (95) 118/75 (89) Pulse Ox 92 91 O2 Delivery Room Air Room Air Room Air Room Air 11/27/19 11/27/19 07:45 08:51 O2 Delivery Room Air Room Air Intake and Output 11/26/19 11/26/19 11/27/19 15:00 23:00 07:00 Intake Total 600 ml 600 ml Output Total 400 ml 100 ml 675 ml Balance 200 ml 500 ml -675 ml KELLY RUSSO MD November 27, 2019 09:59
[2019-11-27 11:00] VITALS: BP 110/74
[2019-11-27] MEDS: MORPHINE SULFATE 4 MG/ML VIAL. IV PRN (11:35)
[2019-11-27 15:00] VITALS: BP 103/80
[2019-11-27 19:00] VITALS: BP 119/80
[2019-11-27] MEDS: ONDANSETRON PF 4 MG/2 ML VIAL. IV PRN (19:35)
[2019-11-27 23:00] VITALS: BP 114/77
[2019-11-28 03:00] VITALS: BP 123/90
[2019-11-28] MEDS: HYDROcodone/APAP 5/325MG 1 TAB TABLET PO PRN ×3 (03:37→22:45)
[2019-11-28] MEDS: IBUPROFEN 400 MG TABLET. PO PRN (05:13)
[2019-11-28 07:00] VITALS: BP 106/64
[2019-11-28] MEDS: INSULIN LISPRO 300 UNITS/3 ML VIAL. SQ SCH ×4 (07:30→21:02)
[2019-11-28] MEDS: ASPIRIN CHEWABLE 81 MG TABLET. PO SCH (08:00)
--- NOTE | 2019-11-28 10:08 | PDOC ---
PROGRESS NOTES Chief Complaint Chief Complaint IMPRESSION Metastatic Cancer, unknown primary //suspect melanoma as primary Extensive anthony and pulmonary parenchymal metastatic disease. Pathologic compression fracture at the L4 vertebral body. Osteolytic lesions at L4 and at L5, highly suspicious for osteolytic metastatic deposits with associated pathologic fracture and mild asymmetric right-sided loss of height at L4. Fluoroscopically guided biopsy, L4 done L4 kyphoplasty done DM2, non insulin dependent HLD, on statin therapy Pain secondary to bone mets Hypokalemia Hyponatremia Elevated LFTs hx of melanoma history of melanoma removed from the lower back 6 to 8 months hx of TBI PLAN - check MRI brain 11/25 OK WITH DPOA 11/25 by phone consent - CT chest, CT cervical, lumbar and thoracic spine done. no mets in cervical or thoracic spine. - check CEA CA19-9. PSA normal - onc consulted. recommending placing port DPOA wants to wait for now - pulm consulted - ortho consult for compression fracture eval - IR consult for lumbar bx. path pending - stop statin given elevated LFTs - SSI - hold ASA, no cardiac hx. - IV and PO pain meds available - dvt ppx: lovenox on hold for bx - PT eval - CONSULT ONCOLOGY - Left axillary mass biopsy with IR, to be arranged now in hospital - FULL CODE D/W DPOA // JAMIE ALLEN [phone] WANTS TO WAIT FOR PORT PLACEMENT until pathology back from bx 29 MIN pt exam, chart review, > 50% of time spent with exam, chart review, pt care coordination History of Present Illness History of Present Illness no issues overnight. awaiting MRI HEAD . s/p l4 bx, back pain FAIR Vitals Vitals Vital Signs Date Time Temp Pulse Resp B/P (MAP) Pulse Ox O2 Delivery O2 Flow Rate FiO2 11/28/19 07:00 98.5 74 16 106/64 (78) 97 Room Air 98.5 Physical Exam General: No acute distress Heart: Regular rate, Normal S1 Lungs: Clear Abdomen: Normal bowel sounds, Soft, No tenderness, No hepatosplenomegaly, No masses Extremities: No clubbing, No tenderness/swelling Skin: No rashes, No significant lesion Labs LABS Laboratory Tests Test 11/27/19 11:33 11/27/19 19:57 11/28/19 07:53 Glucose (Fingerstick) 133 mg/dL (70-99) 163 mg/dL (70-99) 103 mg/dL (70-99) Assessment and Plan Assessmemt and Plan Problems Medical Problems: (1) Compression fracture of L4 vertebra Status: Acute (2) Low back pain Status: Acute (3) Metastatic neoplastic disease Status: Acute (4) Right flank pain Status: Acute Comment Review of Relevant I have reviewed the following items sylvia (where applicable) has been applied. Labs Laboratory Tests Test 11/26/19 11:34 11/26/19 16:49 11/26/19 21:03 11/27/19 07:23 Glucose (Fingerstick) 98 mg/dL (70-99) 133 mg/dL (70-99) 101 mg/dL (70-99) 102 mg/dL (70-99) Test 11/27/19 11:33 11/27/19 19:57 11/28/19 07:53 Glucose (Fingerstick) 133 mg/dL (70-99) 163 mg/dL (70-99) 103 mg/dL (70-99) Laboratory Tests Test 11/27/19 11:33 11/27/19 19:57 11/28/19 07:53 Glucose (Fingerstick) 133 mg/dL (70-99) 163 mg/dL (70-99) 103 mg/dL (70-99) Medications Current Medications Sodium Chloride 1,000 ml @ 1,000 mls/hr Q1H IV Last administered on 11/21/19at 21:54; Start 11/21/19 at 21:30; Stop 11/21/19 at 22:29; Status DC Ondansetron HCl (Zofran) 4 mg 1X ONCE IVP Last administered on 11/21/19at 21:54; Start 11/21/19 at 21:30; Stop 11/21/19 at 21:31; Status DC Ketorolac Tromethamine (Toradol 30mg Vial) 30 mg 1X ONCE IVP Last administered on 11/21/19at 21:55; Start 11/21/19 at 21:30; Stop 11/21/19 at 21:31; Status DC Ondansetron HCl (Zofran) 4 mg PRN Q8HRS PRN IV NAUSEA/VOMITING; Start 11/21/19 at 23:30; Stop 11/22/19 at 06:04; Status DC Morphine Sulfate (Morphine Sulfate) 4 mg PRN Q2HR PRN IV PAIN Last administered on 11/27/19 11:35; Start 11/21/19 at 23:30 Ondansetron HCl (Zofran) 4 mg PRN Q4HRS PRN IV NAUSEA/VOMITING Last administered on 11/27/19at 19:35; Start 11/22/19 at 06:00 Aspirin (Aspirin Chewable) 81 mg DAILYWBKFT PO Last administered on 11/27/19at 08:50; Start 11/22/19 at 08:00 Atorvastatin Calcium (Lipitor) 20 mg HS PO ; Start 11/22/19 at 21:00; Stop 11/22/19 at 09:35; Status DC Docusate Sodium (Colace) 100 mg BID PO Last administered on 11/27/19 21:12; Start 11/22/19 at 09:00 Acetaminophen/ Hydrocodone Bitart (Lortab 5/325) 1 tab PRN Q4HRS PRN PO MODERATE PAIN 4-6 Last administered on 11/28/19at 03:37; Start 11/22/19 at 06:00 Ibuprofen (Motrin) 400 mg PRN Q6HRS PRN PO INFLAMMATION Last administered on 11/28/19 05:13; Start 11/22/19 at 06:00 Fentanyl (Duragesic 12mcg/ Hr Patch) 1 patch Q3DAYS TD Last administered on 11/25/19at 07:59; Start 11/22/19 at 09:00 Enoxaparin Sodium (Lovenox 40mg Syringe) 40 mg Q24H SQ Last administered on 11/22/19at 08:35; Start 11/22/19 at 10:00; Stop 11/22/19 at 17:03; Status DC Insulin Human Lispro (HumaLOG) 0-7 UNITS TIDACHC SQ Last administered on 11/25/19at 17:10; Start 11/22/19 at 07:30 Dextrose (Dextrose 50%-Water Syringe) 12.5 gm PRN Q15MIN PRN IV SEE COMMENTS; Start 11/22/19 at 06:00 Potassium Chloride (Klor-Con) 40 meq 1X ONCE PO Last administered on 11/22/19at 16:12; Start 11/22/19 at 14:00; Stop 11/22/19 at 14:01; Status DC Iohexol (Omnipaque 240 Mg/ml) 50 ml STK-MED ONCE .ROUTE ; Start 11/23/19 at 11:28; Stop 11/23/19 at 11:28; Status DC Lidocaine HCl 20 ml STK-MED ONCE .ROUTE ; Start 11/23/19 at 11:28; Stop 11/23/19 at 11:28; Status DC Cefazolin Sodium (Ancef) 1 gm STK-MED ONCE IVP ; Start 11/23/19 at 14:09; Stop 11/23/19 at 14:09; Status DC Midazolam HCl (Versed) 5 mg STK-MED ONCE .ROUTE ; Start 11/23/19 at 14:09; Stop 11/23/19 at 14:09; Status DC Fentanyl Citrate (Fentanyl 2ml Vial) 100 mcg STK-MED ONCE .ROUTE ; Start 11/23/19 at 14:09; Stop 11/23/19 at 14:09; Status DC Midazolam HCl (Versed) 5 mg 1X ONCE IV Last administered on 11/23/19at 15:33; Start 11/23/19 at 15:15; Stop 11/23/19 at 15:30; Status DC Fentanyl Citrate (Fentanyl 2ml Vial) 100 mcg 1X ONCE IV Last administered on 11/23/19at 15:34; Start 11/23/19 at 15:15; Stop 11/23/19 at 15:30; Status DC Lidocaine HCl (Lidocaine 1% 20ml Vial) 20 ml 1X ONCE INJ ; Start 11/23/19 at 15:15; Stop 11/23/19 at 15:16; Status Cancel Iohexol (Omnipaque 240 Mg/ml) 50 ml 1X ONCE IJ Last administered on 11/23/19at 15:32; Start 11/23/19 at 15:15; Stop 11/23/19 at 15:30; Status DC Cefazolin Sodium (Ancef) 1 gm 1X ONCE IVP Last administered on 11/23/19at 15:33; Start 11/23/19 at 15:15; Stop 11/23/19 at 15:30; Status DC Lidocaine HCl 20 ml 1X ONCE IJ ; Start 11/23/19 at 15:45; Stop 11/23/19 at 15:46; Status DC Ondansetron HCl (Zofran) 4 mg PRN Q6HRS PRN IV NAUSEA/VOMITING; Start 11/27/19 at 07:00; Stop 11/27/19 at 19:00; Status DC Fentanyl Citrate (Fentanyl 2ml Vial) 25 mcg PRN Q5MIN PRN IV MILD PAIN 1-3; Start 11/27/19 at 07:00; Stop 11/27/19 at 19:00; Status DC Fentanyl Citrate (Fentanyl 2ml Vial) 50 mcg PRN Q5MIN PRN IV MODERATE TO SEVERE PAIN; Start 11/27/19 at 07:00; Stop 11/27/19 at 19:00; Status DC Morphine Sulfate (Morphine Sulfate) 1 mg PRN Q10MIN PRN IV SEVERE PAIN 7-10; Start 11/27/19 at 07:00; Stop 11/27/19 at 19:00; Status DC Ringer's Solution 1,000 ml @ 30 mls/hr Q24H IV ; Start 11/27/19 at 07:00; Stop 11/27/19 at 18:59; Status DC Lidocaine HCl (Xylocaine-Mpf 1% 2ml Vial) 2 ml PRN 1X PRN ID PRIOR TO IV START; Start 11/27/19 at 07:00; Stop 11/27/19 at 19:00; Status DC Hydromorphone HCl (Dilaudid) 0.5 mg PRN Q10MIN PRN IV SEV PAIN, Second choice; Start 11/27/19 at 07:00; Stop 11/27/19 at 19:00; Status DC Prochlorperazine Edisylate (Compazine) 5 mg PACU PRN PRN IV NAUSEA, MRX1; Start 11/27/19 at 07:00; Stop 11/27/19 at 19:00; Status DC Active Scripts Active Reported Colace (Docusate Sodium) 100 Mg Capsule 1 Cap PO BID [place] 5-325 Tablet (Acetaminophen/Hydrocodone Bitart) 1 Each Tablet 1 Tab PO Q4- 6HRS Ibuprofen 400 Mg Tablet 400 Mg PO PRN Q6HRS PRN Atorvastatin Calcium 20 Mg Tablet 1 Tab PO DAILY Aspirin 81 Mg Tab.chew 1 Tab PO DAILY Metformin Hcl 500 Mg Tablet 500 Mg PO BIDWMEALS Vitals/I & O Vital Sign - Last 24 Hours 11/27/19 11/27/19 11/27/19 11/27/19 11:00 11:35 12:10 15:00 Temp 97.4 98.1 97.4 98.1 Pulse 81 75 Resp 18 20 B/P (MAP) 110/74 (86) 103/80 (88) Pulse Ox 92 100 O2 Delivery Room Air Room Air Room Air Room Air 11/27/19 11/27/19 11/27/19 11/27/19 17:26 19:00 19:04 20:00 Temp 97.6 97.6 Pulse 85 Resp 18 B/P (MAP) 119/80 (93) Pulse Ox 92 O2 Delivery Room Air Room Air Room Air Room Air 11/27/19 11/28/19 11/28/19 11/28/19 23:00 03:00 03:37 04:37 Temp 97.9 98.0 97.9 98.0 Pulse 81 91 Resp 18 18 B/P (MAP) 114/77 (89) 123/90 (101) Pulse Ox 94 95 O2 Delivery Room Air Room Air Room Air Room Air 11/28/19 07:00 Temp 98.5 98.5 Pulse 74 Resp 16 B/P (MAP) 106/64 (78) Pulse Ox 97 O2 Delivery Room Air Intake and Output 11/27/19 11/27/19 11/28/19 15:00 23:00 07:00 Intake Total 640 ml 300 ml 50 ml Output Total 200 ml 600 ml Balance 640 ml 100 ml -550 ml KELLY RUSSO MD November 28, 2019 10:08
--- NOTE | 2019-11-28 10:26 | NUR ---
SW following. Discussed with RN, possibility of lymphnode biopsy (requested by Oncology). SW will continue to follow.
[2019-11-28 11:00] VITALS: BP 123/82
[2019-11-28] MEDS: fentaNYL 12MCG/HR PATCH 1 PATCH PATCH.TD72 TD SCH (11:36)
--- NOTE | 2019-11-28 13:00 | PDOC ---
PULMONARY PROGRESS NOTES Subjective no diaz no CP s/p l4 bx, back pain better Vitals Vital Signs Date Time Temp Pulse Resp B/P (MAP) Pulse Ox O2 Delivery O2 Flow Rate FiO2 11/28/19 11:36 Room Air 11/28/19 11:00 98.2 74 16 123/82 (96) 95 98.2 ROS: No Chest Pain, No Abdominal Pain, No Increase Cough General: Alert, No acute distress Lungs: Clear Cardiovascular: S1, S2 Abdomen: Soft, Non-tender Neuro Exam: Alert Extremities: No Edema Skin: Warm Labs Laboratory Tests Test 11/26/19 16:49 11/26/19 21:03 11/27/19 07:23 11/27/19 11:33 Glucose (Fingerstick) 133 mg/dL (70-99) 101 mg/dL (70-99) 102 mg/dL (70-99) 133 mg/dL (70-99) Test 11/27/19 19:57 11/28/19 07:53 11/28/19 10:48 Glucose (Fingerstick) 163 mg/dL (70-99) 103 mg/dL (70-99) 87 mg/dL (70-99) Laboratory Tests Test 11/27/19 19:57 11/28/19 07:53 11/28/19 10:48 Glucose (Fingerstick) 163 mg/dL (70-99) 103 mg/dL (70-99) 87 mg/dL (70-99) Medications Active Scripts Medications Dose Route/Sig Max Daily Dose Days Date Category Colace (Docusate Sodium) 100 Mg Capsule 1 Cap PO BID 03/07/19 Reported [place] 5-325 Tablet (Acetaminophen/Hydrocodone Bitart) 1 Each Tablet 1 Tab PO Q4-6HRS 03/07/19 Reported Ibuprofen 400 Mg Tablet 400 Mg PO PRN Q6HRS PRN 03/07/19 Reported Atorvastatin Calcium 20 Mg Tablet 1 Tab PO DAILY 03/07/19 Reported Aspirin 81 Mg Tab.chew 1 Tab PO DAILY 03/07/19 Reported Metformin Hcl 500 Mg Tablet 500 Mg PO BIDWMEALS 03/07/19 Reported Impression . 1. Abnormal CT chest with multiple nodules throughout the lungs and lesions in the liver. He also has CT abdomen and pelvis, which showed abdominal adenopathy and bony lesions, especially L4 compression fracture. He likely has metastatic disease. He had a history of melanoma removed from the lower back 6 to 8 months ago. Could be a primary lesion. fu path 2. No significant tobacco history. 3. No significant weight loss. 4. H/O TBI with development delay. Plan . Pathology pending. Patient in no respiratory distress Oncology consult pending YON KEMP MD November 28, 2019 13:00
[2019-11-28 15:00] VITALS: BP 118/62
[2019-11-28] MEDS: DOCUSATE SODIUM 100 MG CAPSULE. PO SCH ×2 (16:01→21:00)
--- NOTE | 2019-11-28 17:06 | PATHOLOGY ---
[facility] Accession Number: [id number] . 01 Material submitted: . vertebral column - L4 BONE BIOPSY . 01 Clinical history: . Compression fx . 02 Diagnosis: Bone, L4 bone core biopsy: - METASTATIC MELANOMA. SEE COMMENT. (JPM:norman; 11/28/2019) S 11/28/2019 0904 Local . 02 Comment: Sections of the L4 bone core biopsy show marrow replacement by a malignant neoplasm. The malignant cells are present in solid nests and show no evidence of glandular or squamous differentiation. The malignant cells have an epithelioid and focal spindle shaped configuration. The malignant cells have ample amounts of eosinophilic to clear cytoplasm, and possess enlarged, moderately pleomorphic rounded to ovoid nuclei containing prominent nucleoli. Mitotic figures are present. There are areas of tumor necrosis. A panel of immunoperoxidase stains is obtained on block A1 and yields the following results: . Cytokeratin FLIP: Tumor cells negative Cytokeratin 7: Tumor cells negative Cytokeratin 20: Tumor cells negative S100: Tumor cells positive Pelaez-mike red: Tumor cells positive PAX-8: Tumor cells negative PSA: Tumor cells negative . The morphologic and immunophenotypic findings are supportive of the diagnosis of metastatic melanoma. The results were reported to Dr. Jadiel Jonas on 11/28/19 at 12:08 PM. (JPM:norman; 11/28/2019) . Special stains performed: Immunoperoxidase stains for cytokeratin FLIP, CK7, CK20, S100, pelaez-mike red, PAX-8, and PSA. . 02 Electronically signed: . Calixto Rene MD, Pathologist NPI- [id number] . 01 Gross description: . The specimen is received in formalin, labeled "Isiah Quintanilla, L4 bone BX" and consists of a bone core measuring 1.3 cm in length and 0.2 cm in diameter which is entirely submitted in A1 following decalcification. (SDY; 11/26/2019) SYU/SYU 11/26/2019 1557 Local . 02 Pathologist provided ICD-10: C79.51 . 02 CPT . 887806, 536312, [id number], L48934 Specimen Comment: A courtesy copy of this report has been sent to [phone], [phone] Specimen Comment: [id number], , , Specimen Comment: Report sent to ,DR MURILLO,DR JAMESON,DR ISRAEL Specimen Comment: DR JONAS Specimen Comment: A duplicate report has been generated due to demographic updates. Performed at: [facility] [address] [facility] [address], [place] [id number] MD Bjorn Puga MD Phone: [phone] [facility]formed at: [facility] [address] [place], [place] [id number] MD Calixto Rene MD Phone: [phone]
[2019-11-28 19:50] VITALS: BP 110/58
[2019-11-28 22:30] VITALS: BP 95/56
[2019-11-29 02:58] VITALS: BP 109/72
[2019-11-29] MEDS: HYDROcodone/APAP 5/325MG 1 TAB TABLET PO PRN ×3 (05:59→19:32)
[2019-11-29 07:00] VITALS: BP 107/81
[2019-11-29] MEDS: INSULIN LISPRO 300 UNITS/3 ML VIAL. SQ SCH ×4 (07:30→21:00)
[2019-11-29] MEDS: ASPIRIN CHEWABLE 81 MG TABLET. PO SCH (09:28)
[2019-11-29] MEDS: DOCUSATE SODIUM 100 MG CAPSULE. PO SCH ×2 (09:28→21:11)
[2019-11-29] MEDS: IBUPROFEN 400 MG TABLET. PO PRN (09:28)
[2019-11-29 10:44] VITALS: BP 108/79
--- NOTE | 2019-11-29 11:19 | PDOC ---
PULMONARY PROGRESS NOTES Subjective Patient not seen today Vitals Vital Signs Date Time Temp Pulse Resp B/P (MAP) Pulse Ox O2 Delivery O2 Flow Rate FiO2 11/29/19 10:44 98.4 96 18 108/79 (89) 96 Room Air 98.4 ROS: No Chest Pain, No Abdominal Pain, No Increase Cough General: Alert, No acute distress Lungs: Clear Cardiovascular: S1, S2 Abdomen: Soft, Non-tender Neuro Exam: Alert Extremities: No Edema Skin: Warm Labs Laboratory Tests Test 11/27/19 11:33 11/27/19 19:57 11/28/19 07:53 11/28/19 10:48 Glucose (Fingerstick) 133 mg/dL (70-99) 163 mg/dL (70-99) 103 mg/dL (70-99) 87 mg/dL (70-99) Test 11/28/19 16:50 11/28/19 21:02 11/29/19 07:10 Glucose (Fingerstick) 153 mg/dL (70-99) 167 mg/dL (70-99) 122 mg/dL (70-99) Laboratory Tests Test 11/28/19 16:50 11/28/19 21:02 11/29/19 07:10 Glucose (Fingerstick) 153 mg/dL (70-99) 167 mg/dL (70-99) 122 mg/dL (70-99) Medications Active Scripts Medications Dose Route/Sig Max Daily Dose Days Date Category Colace (Docusate Sodium) 100 Mg Capsule 1 Cap PO BID 03/07/19 Reported [place] 5-325 Tablet (Acetaminophen/Hydrocodone Bitart) 1 Each Tablet 1 Tab PO Q4-6HRS 03/07/19 Reported Ibuprofen 400 Mg Tablet 400 Mg PO PRN Q6HRS PRN 03/07/19 Reported Atorvastatin Calcium 20 Mg Tablet 1 Tab PO DAILY 03/07/19 Reported Aspirin 81 Mg Tab.chew 1 Tab PO DAILY 03/07/19 Reported Metformin Hcl 500 Mg Tablet 500 Mg PO BIDWMEALS 03/07/19 Reported Impression . 1. Stage IV metastatic melanoma 2. No significant tobacco history. 3. No significant weight loss. 4. H/O TBI with development delay. Order Number(s): [facility] Accession Number: [id number] . 01 Material submitted: . vertebral column - L4 BONE BIOPSY . 01 Clinical history: . Compression fx . 02 Diagnosis: Bone, L4 bone core biopsy: - METASTATIC MELANOMA. SEE COMMENT. (JPM:norman; 11/28/2019) QMS 11/28/2019 0904 Local . 02 Comment: Sections of the L4 bone core biopsy show marrow replacement by a malignant neoplasm. The malignant cells are present in solid nests and show no evidence of glandular or squamous differentiation. The malignant cells have an epithelioid and focal spindle shaped configuration. The malignant cells have ample amounts of eosinophilic to clear cytoplasm, and possess enlarged, moderately pleomorphic rounded to ovoid nuclei containing prominent nucleoli. Mitotic figures are present. There are areas of tumor necrosis. A panel of immunoperoxidase stains is obtained on block A1 and yields the following results: . Cytokeratin FLIP: Tumor cells negative Cytokeratin 7: Tumor cells negative Cytokeratin 20: Tumor cells negative S100: Tumor cells positive Pelaez-mike red: Tumor cells positive PAX-8: Tumor cells negative PSA: Tumor cells negative . The morphologic and immunophenotypic findings are supportive of the diagnosis of metastatic melanoma. The results were reported to Dr. Jadiel Jonas on 11/28/19 at 12:08 PM. (JPM:norman; 11/28/2019) . Special stains performed: Immunoperoxidase stains for cytokeratin FLIP, CK7, CK20, S100, pelaez-mike red, PAX-8, and PSA. . 02 Electronically signed: . Calixto Rene MD, Pathologist NPI- [id number] . 01 Gross description: . The specimen is received in formalin, labeled "Isiah Quintanilla, L4 bone BX" and consists of a bone core measuring 1.3 cm in length and 0.2 cm in diameter which is entirely submitted in A1 following decalcification. (SDY; 11/26/2019) SYU/SYU 11/26/2019 1557 Local Plan . Patient not seen, chart reviewed, appreciate Dr. Adams input I will see the patient as needed Please call with any questions YON KEMP MD November 29, 2019 11:19
--- NOTE | 2019-11-29 13:30 | NUR ---
SW following. Discussed with RN and Dr. Gonsales - awaiting biopsy results and oncology. SW will continue to follow.
[2019-11-29 14:43] VITALS: BP 112/82
--- NOTE | 2019-11-29 16:31 | PDOC ---
PROGRESS NOTES Chief Complaint Chief Complaint IMPRESSION Static melanoma confirmed by pathology see below for details Extensive anthony and pulmonary parenchymal metastatic disease. Pathologic compression fracture at the L4 vertebral body. Osteolytic lesions at L4 and at L5, highly suspicious for osteolytic metastatic deposits with associated pathologic fracture and mild asymmetric right-sided loss of height at L4. Fluoroscopically guided biopsy, L4 done L4 kyphoplasty done DM2, non insulin dependent HLD, on statin therapy Pain secondary to bone mets Hypokalemia Hyponatremia Elevated LFTs hx of melanoma history of melanoma removed from the lower back 6 to 8 months hx of TBI PLAN Continue with current management Discussed over the phone with patient's D POA will talk to her regarding port placement Plan of care discussed in detail and explained to the best of my abilities to the D POA Recommendations from oncologist are as follow Based on [id number] trial, results were published in article in NEJM (Five- Year Survival with Combined Nivolumab and Ipilimumab in Advanced Melanoma), patients with previously untreated advanced melanoma were assigned to receive one of the following regimens: nivolumab (at a dose of 1 mg per kilogram of body weight) plus ipilimumab (3 mg per kilogram) every 3 weeks for four doses, followed by nivolumab (3 mg per kilogram every 2 weeks); nivolumab (3 mg per kilogram every 2 weeks) plus ipilimumab-matched placebo; or ipilimumab (3 mg per kilogram every 3 weeks for four doses) plus nivolumab-matched placebo. At a minimum follow-up of 60 months, the median OS was more than 60.0 months (median not reached) in the dflbfbdqj-smpn-otvybbyizm group and 36.9 months in the nivolumab group, as compared with 19.9 months in the ipilimumab group (HR for with nivolumab plus ipilimumab vs. ipilimumab, 0.52; HR for with nivolumab vs. ipilimumab, 0.63). OS at 5 years was 52% in the idvbdymif-rbmz-mgrfogtubq group and 44% in the nivolumab group, as compared with 26% in the ipilimumab group. (Duarte et al, N Engl J Med 2019; 381:2867-0636.) CheckMate 511 trial, a phase phase IIIB/IV study which evaluated safety profile and efficacy of alternative dose regimen. The study met its primary end point, demonstrating a significantly lower incidence of treatment-related grade 3-5 adverse events with Opdivo 3 mg/kg/Yervoy 1 mg/kg versus Opdivo 1 mg/kg/Yervoy 3 mg/kg. Descriptive analyses showed that there were no meaningful differences between the groups for any efficacy end point (Ruth corona. peter, 09/06/18, [facility] [place]). Based on results of the above two studies, will plan to initiate treatment with Opdivo 3 mg/kg and Yervoy 1 mg/kg. Bone mets. - May benefit from Xgeva, pending dental evaluation. It would be important to obtain genetic evaluation on tumor with [facility] to assess for presence of targetable abnormalities (specifically BRAF mutation). The patient does not voice any social stressors. Plan 1. Opdivo 3 mg/Yervoy 1 mg q 3 weeks x 4 cycles, followed by Opdivo alone q 2-4 weeks will be started, if pathology confirms presence of recurrent melanoma. 2. [facility] on 11/2018 tumor specimen, [place]. 3. Xgeva q 4 weeks will be started, pending dental evaluation. Will discuss further on next visit. 4. Staging PET/CT, scheduled on 11/30/2019. 5. Port placement to be arranged while patient is admitted at [place]. 6. Left axillary mass biopsy with IR, to be arranged while patient is admitted at [place]. 7. Will request pathology from initial diagnosis of melanoma in 11/2018. 8. Follow-up via [facility] on 12/04/2019 to discuss PET/CT results, pathology, and further management. KRISTINA MEJIAS MD D/W DPOA // JAMIE ALLEN [phone] WANTS TO WAIT FOR PORT PLACEMENT 29 MIN pt exam, chart review, > 50% of time spent with exam, chart review, pt care coordination History of Present Illness History of Present Illness No acute events reported overnight, case discussed with nursing staff patient in no acute distress no complaints during my visit Discussed with the POA over the phone Vitals Vitals Vital Signs Date Time Temp Pulse Resp B/P (MAP) Pulse Ox O2 Delivery O2 Flow Rate FiO2 11/29/19 14:43 97.6 89 18 112/82 (92) 96 Room Air 97.6 Physical Exam General: No acute distress Heart: Regular rate, Normal S1 Lungs: Clear Abdomen: Normal bowel sounds, Soft, No tenderness, No hepatosplenomegaly, No masses Extremities: No clubbing, No tenderness/swelling Skin: No rashes, No significant lesion Labs LABS Laboratory Tests Test 11/28/19 16:50 11/28/19 21:02 11/29/19 07:10 11/29/19 11:28 Glucose (Fingerstick) 153 mg/dL (70-99) 167 mg/dL (70-99) 122 mg/dL (70-99) 140 mg/dL (70-99) Test 11/29/19 16:09 Glucose (Fingerstick) 134 mg/dL (70-99) Assessment and Plan Assessmemt and Plan Problems Medical Problems: (1) Compression fracture of L4 vertebra Status: Acute (2) Low back pain Status: Acute (3) Metastatic neoplastic disease Status: Acute (4) Right flank pain Status: Acute Comment Review of Relevant I have reviewed the following items sylvia (where applicable) has been applied. Labs Laboratory Tests Test 11/27/19 19:57 11/28/19 07:53 11/28/19 10:48 11/28/19 16:50 Glucose (Fingerstick) 163 mg/dL (70-99) 103 mg/dL (70-99) 87 mg/dL (70-99) 153 mg/dL (70-99) Test 11/28/19 21:02 11/29/19 07:10 11/29/19 11:28 11/29/19 16:09 Glucose (Fingerstick) 167 mg/dL (70-99) 122 mg/dL (70-99) 140 mg/dL (70-99) 134 mg/dL (70-99) Laboratory Tests Test 11/28/19 16:50 11/28/19 21:02 11/29/19 07:10 11/29/19 11:28 Glucose (Fingerstick) 153 mg/dL (70-99) 167 mg/dL (70-99) 122 mg/dL (70-99) 140 mg/dL (70-99) Test 11/29/19 16:09 Glucose (Fingerstick) 134 mg/dL (70-99) Medications Current Medications Sodium Chloride 1,000 ml @ 1,000 mls/hr Q1H IV Last administered on 11/21/19at 21:54; Start 11/21/19 at 21:30; Stop 11/21/19 at 22:29; Status DC Ondansetron HCl (Zofran) 4 mg 1X ONCE IVP Last administered on 11/21/19 21:54; Start 11/21/19 at 21:30; Stop 11/21/19 at 21:31; Status DC Ketorolac Tromethamine (Toradol 30mg Vial) 30 mg 1X ONCE IVP Last administered on 11/21/19 21:55; Start 11/21/19 at 21:30; Stop 11/21/19 at 21:31; Status DC Ondansetron HCl (Zofran) 4 mg PRN Q8HRS PRN IV NAUSEA/VOMITING; Start 11/21/19 at 23:30; Stop 11/22/19 at 06:04; Status DC Morphine Sulfate (Morphine Sulfate) 4 mg PRN Q2HR PRN IV PAIN Last administered on 11/27/19 11:35; Start 11/21/19 at 23:30 Ondansetron HCl (Zofran) 4 mg PRN Q4HRS PRN IV NAUSEA/VOMITING Last administered on 11/27/19at 19:35; Start 11/22/19 at 06:00 Aspirin (Aspirin Chewable) 81 mg DAILYWBKFT PO Last administered on 11/29/19 09:28; Start 11/22/19 at 08:00 Atorvastatin Calcium (Lipitor) 20 mg HS PO ; Start 11/22/19 at 21:00; Stop 11/22/19 at 09:35; Status DC Docusate Sodium (Colace) 100 mg BID PO Last administered on 11/29/19 09:28; Start 11/22/19 at 09:00 Acetaminophen/ Hydrocodone Bitart (Lortab 5/325) 1 tab PRN Q4HRS PRN PO MODERATE PAIN 4-6 Last administered on 11/29/19 10:30; Start 11/22/19 at 06:00 Ibuprofen (Motrin) 400 mg PRN Q6HRS PRN PO INFLAMMATION Last administered on 11/29/19 09:28; Start 11/22/19 at 06:00 Fentanyl (Duragesic 12mcg/ Hr Patch) 1 patch Q3DAYS TD Last administered on 11/28/19 11:36; Start 11/22/19 at 09:00 Enoxaparin Sodium (Lovenox 40mg Syringe) 40 mg Q24H SQ Last administered on 5/14/20at 08:35; Start 11/22/19 at 10:00; Stop 11/22/19 at 17:03; Status DC Insulin Human Lispro (HumaLOG) 0-7 UNITS TIDACHC SQ Last administered on 11/28/19at 17:44; Start 11/22/19 at 07:30 Dextrose (Dextrose 50%-Water Syringe) 12.5 gm PRN Q15MIN PRN IV SEE COMMENTS; Start 11/22/19 at 06:00 Potassium Chloride (Klor-Con) 40 meq 1X ONCE PO Last administered on 11/22/19at 16:12; Start 11/22/19 at 14:00; Stop 11/22/19 at 14:01; Status DC Iohexol (Omnipaque 240 Mg/ml) 50 ml STK-MED ONCE .ROUTE ; Start 11/23/19 at 11:28; Stop 11/23/19 at 11:28; Status DC Lidocaine HCl 20 ml STK-MED ONCE .ROUTE ; Start 11/23/19 at 11:28; Stop 11/23/19 at 11:28; Status DC Cefazolin Sodium (Ancef) 1 gm STK-MED ONCE IVP ; Start 11/23/19 at 14:09; Stop 11/23/19 at 14:09; Status DC Midazolam HCl (Versed) 5 mg STK-MED ONCE .ROUTE ; Start 11/23/19 at 14:09; Stop 11/23/19 at 14:09; Status DC Fentanyl Citrate (Fentanyl 2ml Vial) 100 mcg STK-MED ONCE .ROUTE ; Start 11/23/19 at 14:09; Stop 11/23/19 at 14:09; Status DC Midazolam HCl (Versed) 5 mg 1X ONCE IV Last administered on 11/23/19at 15:33; Start 11/23/19 at 15:15; Stop 11/23/19 at 15:30; Status DC Fentanyl Citrate (Fentanyl 2ml Vial) 100 mcg 1X ONCE IV Last administered on 11/23/19at 15:34; Start 11/23/19 at 15:15; Stop 11/23/19 at 15:30; Status DC Lidocaine HCl (Lidocaine 1% 20ml Vial) 20 ml 1X ONCE INJ ; Start 11/23/19 at 15:15; Stop 11/23/19 at 15:16; Status Cancel Iohexol (Omnipaque 240 Mg/ml) 50 ml 1X ONCE IJ Last administered on 11/23/19at 15:32; Start 11/23/19 at 15:15; Stop 11/23/19 at 15:30; Status DC Cefazolin Sodium (Ancef) 1 gm 1X ONCE IVP Last administered on 11/23/19at 15:33; Start 11/23/19 at 15:15; Stop 11/23/19 at 15:30; Status DC Lidocaine HCl 20 ml 1X ONCE IJ ; Start 11/23/19 at 15:45; Stop 11/23/19 at 15:46; Status DC Ondansetron HCl (Zofran) 4 mg PRN Q6HRS PRN IV NAUSEA/VOMITING; Start 11/27/19 at 07:00; Stop 11/27/19 at 19:00; Status DC Fentanyl Citrate (Fentanyl 2ml Vial) 25 mcg PRN Q5MIN PRN IV MILD PAIN 1-3; Start 11/27/19 at 07:00; Stop 11/27/19 at 19:00; Status DC Fentanyl Citrate (Fentanyl 2ml Vial) 50 mcg PRN Q5MIN PRN IV MODERATE TO SEVERE PAIN; Start 11/27/19 at 07:00; Stop 11/27/19 at 19:00; Status DC Morphine Sulfate (Morphine Sulfate) 1 mg PRN Q10MIN PRN IV SEVERE PAIN 7-10; Start 11/27/19 at 07:00; Stop 11/27/19 at 19:00; Status DC Ringer's Solution 1,000 ml @ 30 mls/hr Q24H IV ; Start 11/27/19 at 07:00; Stop 11/27/19 at 18:59; Status DC Lidocaine HCl (Xylocaine-Mpf 1% 2ml Vial) 2 ml PRN 1X PRN ID PRIOR TO IV START; Start 11/27/19 at 07:00; Stop 11/27/19 at 19:00; Status DC Hydromorphone HCl (Dilaudid) 0.5 mg PRN Q10MIN PRN IV SEV PAIN, Second choice; Start 11/27/19 at 07:00; Stop 11/27/19 at 19:00; Status DC Prochlorperazine Edisylate (Compazine) 5 mg PACU PRN PRN IV NAUSEA, MRX1; Start 11/27/19 at 07:00; Stop 11/27/19 at 19:00; Status DC Active Scripts Active Reported Colace (Docusate Sodium) 100 Mg Capsule 1 Cap PO BID [place] 5-325 Tablet (Acetaminophen/Hydrocodone Bitart) 1 Each Tablet 1 Tab PO Q4- 6HRS Ibuprofen 400 Mg Tablet 400 Mg PO PRN Q6HRS PRN Atorvastatin Calcium 20 Mg Tablet 1 Tab PO DAILY Aspirin 81 Mg Tab.chew 1 Tab PO DAILY Metformin Hcl 500 Mg Tablet 500 Mg PO BIDWMEALS Vitals/I & O Vital Sign - Last 24 Hours 11/28/19 11/28/19 11/28/19 11/28/19 17:41 18:45 19:50 20:05 Temp 98.5 98.5 Pulse 90 Resp 18 B/P (MAP) 110/58 (75) Pulse Ox 94 O2 Delivery Room Air Room Air Room Air Room Air 11/28/19 11/28/19 11/28/19 11/29/19 22:30 22:45 23:45 02:58 Temp 99.0 98.6 99.0 98.6 Pulse 85 90 Resp 18 18 B/P (MAP) 95/56 (69) 109/72 (84) Pulse Ox 93 93 O2 Delivery Room Air Room Air Room Air Room Air 11/29/19 11/29/19 11/29/19 11/29/19 05:59 07:00 07:55 07:57 Temp 99.0 99.0 Pulse 84 Resp 18 B/P (MAP) 107/81 (90) Pulse Ox 91 O2 Delivery Room Air Room Air Room Air Room Air 11/29/19 11/29/19 11/29/19 11/29/19 10:30 10:44 11:36 14:43 Temp 98.4 97.6 98.4 97.6 Pulse 96 89 Resp 18 18 B/P (MAP) 108/79 (89) 112/82 (92) Pulse Ox 96 96 O2 Delivery Room Air Room Air Room Air Room Air Intake and Output 11/28/19 11/28/19 11/29/19 15:00 23:00 07:00 Intake Total 0 ml 890 ml Balance 0 ml 890 ml ERICA ESCOBAR MD November 29, 2019 16:31
[2019-11-29 19:00] VITALS: BP 112/67
[2019-11-29 23:00] VITALS: BP 112/64
[2019-11-30] MEDS: HYDROcodone/APAP 5/325MG 1 TAB TABLET PO PRN ×4 (00:14→23:27)
[2019-11-30 03:00] VITALS: BP 111/75
[2019-11-30] MEDS: MORPHINE SULFATE 4 MG/ML VIAL. IV PRN (03:43)
[2019-11-30 07:00] VITALS: BP 94/60
--- NOTE | 2019-11-30 07:20 | NUR ---
IP: Pt is COVID negative.
[2019-11-30] MEDS: INSULIN LISPRO 300 UNITS/3 ML VIAL. SQ SCH ×4 (07:30→20:52)
[2019-11-30] MEDS: DOCUSATE SODIUM 100 MG CAPSULE. PO SCH ×2 (08:35→21:06)
[2019-11-30] MEDS: ASPIRIN CHEWABLE 81 MG TABLET. PO SCH (08:35)
[2019-11-30] MEDS: IBUPROFEN 400 MG TABLET. PO PRN ×2 (08:35→19:06)
--- NOTE | 2019-11-30 10:16 | PDOC ---
PROGRESS NOTES Chief Complaint Chief Complaint IMPRESSION METASTATIC melanoma confirmed by pathology see below for details Extensive anthony and pulmonary parenchymal metastatic disease. Pathologic compression fracture at the L4 vertebral body. Osteolytic lesions at L4 and at L5, highly suspicious for osteolytic metastatic deposits with associated pathologic fracture and mild asymmetric right-sided loss of height at L4. Fluoroscopically guided biopsy, L4 done L4 kyphoplasty done DM2, non insulin dependent HLD, on statin therapy Pain secondary to bone mets Hypokalemia Hyponatremia Elevated LFTs hx of melanoma history of melanoma removed from the lower back 6 to 8 months hx of TBI PLAN Continue with current management port placement Recommendations from oncologist are as follow Based on [id number] trial, results were published in article in NEJM (Five- Year Survival with Combined Nivolumab and Ipilimumab in Advanced Melanoma), patients with previously untreated advanced melanoma were assigned to receive one of the following regimens: nivolumab (at a dose of 1 mg per kilogram of body weight) plus ipilimumab (3 mg per kilogram) every 3 weeks for four doses, followed by nivolumab (3 mg per kilogram every 2 weeks); nivolumab (3 mg per kilogram every 2 weeks) plus ipilimumab-matched placebo; or ipilimumab (3 mg per kilogram every 3 weeks for four doses) plus nivolumab-matched placebo. At a minimum follow-up of 60 months, the median OS was more than 60.0 months (median not reached) in the dmlrxovnr-lrnu-ulyecrrvml group and 36.9 months in the nivolumab group, as compared with 19.9 months in the ipilimumab group (HR for with nivolumab plus ipilimumab vs. ipilimumab, 0.52; HR for with nivolumab vs. ipilimumab, 0.63). OS at 5 years was 52% in the kujymlytr-bdqe-lualbimfff group and 44% in the nivolumab group, as compared with 26% in the ipilimumab group. (Duarte et al, N Engl J Med 2019; 381:3102-7626.) CheckMate 511 trial, a phase phase IIIB/IV study which evaluated safety profile and efficacy of alternative dose regimen. The study met its primary end point, demonstrating a significantly lower incidence of treatment-related grade 3-5 adverse events with Opdivo 3 mg/kg/Yervoy 1 mg/kg versus Opdivo 1 mg/kg/Yervoy 3 mg/kg. Descriptive analyses showed that there were no meaningful differences between the groups for any efficacy end point (Lebbe et. al, 2/27/19, [facility]). Based on results of the above two studies, will plan to initiate treatment with Opdivo 3 mg/kg and Yervoy 1 mg/kg. Bone mets. - May benefit from Xgeva, pending dental evaluation. It would be important to obtain genetic evaluation on tumor with [facility] to assess for presence of targetable abnormalities (specifically BRAF mutation). The patient does not voice any social stressors. Plan 1. Opdivo 3 mg/Yervoy 1 mg q 3 weeks x 4 cycles, followed by Opdivo alone q 2-4 weeks will be started, if pathology confirms presence of recurrent melanoma. 2. [facility] on 11/2018 tumor specimen, [place]. 3. Xgeva q 4 weeks will be started, pending dental evaluation. Will discuss further on next visit. 4. Staging PET/CT, scheduled on 11/30/2019. 5. Port placement to be arranged while patient is admitted at [place]. 6. Left axillary mass biopsy with IR, to be arranged while patient is admitted at [place]. 7. Will request pathology from initial diagnosis of melanoma in 11/2018. 8. Follow-up via ITV on 12/04/2019 to discuss PET/CT results, pathology, and further management. KRISTINA MEJIAS MD D/W [facility] // JAMIE ALLEN [phone] WANTS TO WAIT FOR PORT PLACEMENT ONCOLOGY TO EXPLAIN TO DPOA 29 MIN pt exam, chart review, > 50% of time spent with exam, chart review, pt care coordination History of Present Illness History of Present Illness No acute events reported overnight, case discussed with nursing staff patient in no acute distress no complaints during my visit Discussed with the POA over the phone Vitals Vitals Vital Signs Date Time Temp Pulse Resp B/P (MAP) Pulse Ox O2 Delivery O2 Flow Rate FiO2 11/30/19 08:36 Room Air 11/30/19 07:00 97.8 93 16 94/60 (86) 93 97.8 Physical Exam General: No acute distress Heart: Regular rate, Normal S1 Lungs: Clear Abdomen: Normal bowel sounds, Soft, No tenderness, No hepatosplenomegaly, No masses Extremities: No clubbing, No tenderness/swelling Skin: No rashes, No significant lesion Labs LABS Laboratory Tests Test 11/29/19 11:28 11/29/19 14:50 11/29/19 16:09 11/29/19 21:04 Glucose (Fingerstick) 140 mg/dL (70-99) 134 mg/dL (70-99) 112 mg/dL (70-99) Coronavirus (COVID-19)(PCR) See separate report Test 11/30/19 07:42 Glucose (Fingerstick) 109 mg/dL (70-99) Assessment and Plan Assessmemt and Plan Problems Medical Problems: (1) Compression fracture of L4 vertebra Status: Acute (2) Low back pain Status: Acute (3) Metastatic neoplastic disease Status: Acute (4) Right flank pain Status: Acute Comment Review of Relevant I have reviewed the following items sylvia (where applicable) has been applied. Labs Laboratory Tests Test 11/28/19 10:48 11/28/19 16:50 11/28/19 21:02 11/29/19 07:10 Glucose (Fingerstick) 87 mg/dL (70-99) 153 mg/dL (70-99) 167 mg/dL (70-99) 122 mg/dL (70-99) Test 11/29/19 11:28 11/29/19 14:50 11/29/19 16:09 11/29/19 21:04 Glucose (Fingerstick) 140 mg/dL (70-99) 134 mg/dL (70-99) 112 mg/dL (70-99) Coronavirus (COVID-19)(PCR) See separate report Test 11/30/19 07:42 Glucose (Fingerstick) 109 mg/dL (70-99) Laboratory Tests Test 11/29/19 11:28 11/29/19 14:50 11/29/19 16:09 11/29/19 21:04 Glucose (Fingerstick) 140 mg/dL (70-99) 134 mg/dL (70-99) 112 mg/dL (70-99) Coronavirus (COVID-19)(PCR) See separate report Test 11/30/19 07:42 Glucose (Fingerstick) 109 mg/dL (70-99) Medications Current Medications Sodium Chloride 1,000 ml @ 1,000 mls/hr Q1H IV Last administered on 11/21/19at 21:54; Start 11/21/19 at 21:30; Stop 11/21/19 at 22:29; Status DC Ondansetron HCl (Zofran) 4 mg 1X ONCE IVP Last administered on 11/21/19at 21:54; Start 11/21/19 at 21:30; Stop 11/21/19 at 21:31; Status DC Ketorolac Tromethamine (Toradol 30mg Vial) 30 mg 1X ONCE IVP Last administered on 11/21/19at 21:55; Start 11/21/19 at 21:30; Stop 11/21/19 at 21:31; Status DC Ondansetron HCl (Zofran) 4 mg PRN Q8HRS PRN IV NAUSEA/VOMITING; Start 11/21/19 at 23:30; Stop 11/22/19 at 06:04; Status DC Morphine Sulfate (Morphine Sulfate) 4 mg PRN Q2HR PRN IV PAIN Last administered on 11/30/19at 03:43; Start 11/21/19 at 23:30 Ondansetron HCl (Zofran) 4 mg PRN Q4HRS PRN IV NAUSEA/VOMITING Last administered on 11/27/19at 19:35; Start 11/22/19 at 06:00 Aspirin (Aspirin Chewable) 81 mg DAILYWBKFT PO Last administered on 11/30/19at 08:35; Start 11/22/19 at 08:00 Atorvastatin Calcium (Lipitor) 20 mg HS PO ; Start 11/22/19 at 21:00; Stop 11/22/19 at 09:35; Status DC Docusate Sodium (Colace) 100 mg BID PO Last administered on 11/30/19at 08:35; Start 11/22/19 at 09:00 Acetaminophen/ Hydrocodone Bitart (Lortab 5/325) 1 tab PRN Q4HRS PRN PO MODERATE PAIN 4-6 Last administered on 11/30/19at 08:36; Start 11/22/19 at 06:00 Ibuprofen (Motrin) 400 mg PRN Q6HRS PRN PO INFLAMMATION Last administered on 11/30/19at 08:35; Start 11/22/19 at 06:00 Fentanyl (Duragesic 12mcg/ Hr Patch) 1 patch Q3DAYS TD Last administered on 11/28/19at 11:36; Start 11/22/19 at 09:00 Enoxaparin Sodium (Lovenox 40mg Syringe) 40 mg Q24H SQ Last administered on 11/22/19at 08:35; Start 11/22/19 at 10:00; Stop 11/22/19 at 17:03; Status DC Insulin Human Lispro (HumaLOG) 0-7 UNITS TIDACHC SQ Last administered on 11/28/19at 17:44; Start 11/22/19 at 07:30 Dextrose (Dextrose 50%-Water Syringe) 12.5 gm PRN Q15MIN PRN IV SEE COMMENTS; Start 11/22/19 at 06:00 Potassium Chloride (Klor-Con) 40 meq 1X ONCE PO Last administered on 11/22/19at 16:12; Start 11/22/19 at 14:00; Stop 11/22/19 at 14:01; Status DC Iohexol (Omnipaque 240 Mg/ml) 50 ml STK-MED ONCE .ROUTE ; Start 11/23/19 at 11:28; Stop 11/23/19 at 11:28; Status DC Lidocaine HCl 20 ml STK-MED ONCE .ROUTE ; Start 11/23/19 at 11:28; Stop 11/23/19 at 11:28; Status DC Cefazolin Sodium (Ancef) 1 gm STK-MED ONCE IVP ; Start 11/23/19 at 14:09; Stop 11/23/19 at 14:09; Status DC Midazolam HCl (Versed) 5 mg STK-MED ONCE .ROUTE ; Start 11/23/19 at 14:09; Stop 11/23/19 at 14:09; Status DC Fentanyl Citrate (Fentanyl 2ml Vial) 100 mcg STK-MED ONCE .ROUTE ; Start 11/23/19 at 14:09; Stop 11/23/19 at 14:09; Status DC Midazolam HCl (Versed) 5 mg 1X ONCE IV Last administered on 11/23/19at 15:33; Start 11/23/19 at 15:15; Stop 11/23/19 at 15:30; Status DC Fentanyl Citrate (Fentanyl 2ml Vial) 100 mcg 1X ONCE IV Last administered on 11/23/19at 15:34; Start 11/23/19 at 15:15; Stop 11/23/19 at 15:30; Status DC Lidocaine HCl (Lidocaine 1% 20ml Vial) 20 ml 1X ONCE INJ ; Start 11/23/19 at 15:15; Stop 11/23/19 at 15:16; Status Cancel Iohexol (Omnipaque 240 Mg/ml) 50 ml 1X ONCE IJ Last administered on 11/23/19at 15:32; Start 11/23/19 at 15:15; Stop 11/23/19 at 15:30; Status DC Cefazolin Sodium (Ancef) 1 gm 1X ONCE IVP Last administered on 11/23/19at 15:33; Start 11/23/19 at 15:15; Stop 11/23/19 at 15:30; Status DC Lidocaine HCl 20 ml 1X ONCE IJ ; Start 11/23/19 at 15:45; Stop 11/23/19 at 15:46; Status DC Ondansetron HCl (Zofran) 4 mg PRN Q6HRS PRN IV NAUSEA/VOMITING; Start 11/27/19 at 07:00; Stop 11/27/19 at 19:00; Status DC Fentanyl Citrate (Fentanyl 2ml Vial) 25 mcg PRN Q5MIN PRN IV MILD PAIN 1-3; Start 11/27/19 at 07:00; Stop 11/27/19 at 19:00; Status DC Fentanyl Citrate (Fentanyl 2ml Vial) 50 mcg PRN Q5MIN PRN IV MODERATE TO SEVERE PAIN; Start 11/27/19 at 07:00; Stop 11/27/19 at 19:00; Status DC Morphine Sulfate (Morphine Sulfate) 1 mg PRN Q10MIN PRN IV SEVERE PAIN 7-10; Start 11/27/19 at 07:00; Stop 11/27/19 at 19:00; Status DC Ringer's Solution 1,000 ml @ 30 mls/hr Q24H IV ; Start 11/27/19 at 07:00; Stop 11/27/19 at 18:59; Status DC Lidocaine HCl (Xylocaine-Mpf 1% 2ml Vial) 2 ml PRN 1X PRN ID PRIOR TO IV START; Start 11/27/19 at 07:00; Stop 11/27/19 at 19:00; Status DC Hydromorphone HCl (Dilaudid) 0.5 mg PRN Q10MIN PRN IV SEV PAIN, Second choice; Start 11/27/19 at 07:00; Stop 11/27/19 at 19:00; Status DC Prochlorperazine Edisylate (Compazine) 5 mg PACU PRN PRN IV NAUSEA, MRX1; Start 11/27/19 at 07:00; Stop 11/27/19 at 19:00; Status DC Active Scripts Active Reported Colace (Docusate Sodium) 100 Mg Capsule 1 Cap PO BID Peytona 5-325 Tablet (Acetaminophen/Hydrocodone Bitart) 1 Each Tablet 1 Tab PO Q4- 6HRS Ibuprofen 400 Mg Tablet 400 Mg PO PRN Q6HRS PRN Atorvastatin Calcium 20 Mg Tablet 1 Tab PO DAILY Aspirin 81 Mg Tab.chew 1 Tab PO DAILY Metformin Hcl 500 Mg Tablet 500 Mg PO BIDWMEALS Vitals/I & O Vital Sign - Last 24 Hours 11/29/19 11/29/19 11/29/19 11/29/19 10:30 10:44 11:36 14:43 Temp 98.4 97.6 98.4 97.6 Pulse 96 89 Resp 18 18 B/P (MAP) 108/79 (89) 112/82 (92) Pulse Ox 96 96 O2 Delivery Room Air Room Air Room Air Room Air 11/29/19 11/29/19 11/29/19 11/29/19 19:00 19:32 19:35 20:32 Temp 98.6 98.6 Pulse 82 Resp 18 20 20 B/P (MAP) 112/67 (82) Pulse Ox 93 O2 Delivery Room Air Room Air Room Air Room Air 11/29/19 11/30/19 11/30/19 11/30/19 23:00 00:14 01:14 03:00 Temp 98.3 98.0 98.3 98.0 Pulse 90 104 Resp 18 20 20 18 B/P (MAP) 112/64 (80) 111/75 (87) Pulse Ox 93 94 O2 Delivery Room Air Room Air Room Air Room Air 11/30/19 11/30/19 11/30/19 11/30/19 03:43 04:13 07:00 08:00 Temp 97.8 97.8 Pulse 93 Resp 20 20 16 B/P (MAP) 94/60 (71) Pulse Ox 93 O2 Delivery Room Air Room Air Room Air Room Air 11/30/19 08:36 O2 Delivery Room Air Intake and Output 11/29/19 11/29/19 11/30/19 15:00 23:00 07:00 Intake Total 600 ml 360 ml 0 ml Output Total 100 ml 600 ml 400 ml Balance 500 ml -240 ml -400 ml KELLY RUSSO MD November 30, 2019 10:16
[2019-11-30 11:00] VITALS: BP 116/63
--- NOTE | 2019-11-30 12:48 | NUR ---
JOSE following. Discussed with RN. JOSE spoke with pt's DPOA, Dilcia ([phone]), Dilcia advised she has not been given information about side effects of treatment or how long pt has to live with this stage 4 dx, as well as many other questions. Dilcia reported she has not had much luck reaching the oncologist to discuss and they need to know this information as they are the caregivers and want to make the most informed decision. JOSE spoke with Dr. Lewis, Dr Lewis advised SW to call Dr. Jonas to answer those specific questions. JOSE contacted [phone] Jonas's patient care nursing assistant - advised them to please call Dilcia, as we cannot move forward with any treatment or discharge planning at this time. JOSE will continue to follow.
[2019-11-30 15:00] VITALS: BP 120/62
[2019-11-30 19:20] VITALS: BP 109/86
[2019-11-30 23:35] VITALS: BP 111/78
[2019-12-01] MEDS: IBUPROFEN 400 MG TABLET. PO PRN ×3 (03:06→18:10)
[2019-12-01 03:12] VITALS: BP 97/56
[2019-12-01] MEDS: INSULIN LISPRO 300 UNITS/3 ML VIAL. SQ SCH ×4 (07:30→21:00)
[2019-12-01 07:59] VITALS: BP 114/75
[2019-12-01] MEDS: DOCUSATE SODIUM 100 MG CAPSULE. PO SCH ×2 (09:23→21:00)
[2019-12-01] MEDS: ASPIRIN CHEWABLE 81 MG TABLET. PO SCH (09:23)
[2019-12-01] MEDS: fentaNYL 12MCG/HR PATCH 1 PATCH PATCH.TD72 TD SCH (09:24)
--- NOTE | 2019-12-01 11:29 | PDOC ---
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 Pathologic compression fracture at the L4 vertebral body. Osteolytic lesions at L4 and at L5, highly suspicious for osteolytic metastatic deposits with associated pathologic fracture and mild asymmetric right-sided loss of height at L4. The anterolateral aspect of the L5 vertebral body also demonstrates permeative osteolysis with cortical destruction, consistent with osteolytic metastatic deposit. Fluoroscopically guided biopsy, L4 done L4 kyphoplasty done DM2, non insulin dependent HLD, on statin therapy Pain secondary to bone mets Hypokalemia Hyponatremia Elevated LFTs hx of melanoma history of melanoma removed from the lower back 6 to 8 months hx of TBI PLAN Continue with current management port placement IP: Pt is COVID negative. 11/30 Recommendations from oncologist are as follow Based on [id number] trial, results were published in article in NEJM (Five- Year Survival with Combined Nivolumab and Ipilimumab in Advanced Melanoma), patients with previously untreated advanced melanoma were assigned to receive one of the following regimens: nivolumab (at a dose of 1 mg per kilogram of body weight) plus ipilimumab (3 mg per kilogram) every 3 weeks for four doses, followed by nivolumab (3 mg per kilogram every 2 weeks); nivolumab (3 mg per kilogram every 2 weeks) plus ipilimumab-matched placebo; or ipilimumab (3 mg per kilogram every 3 weeks for four doses) plus nivolumab-matched placebo. At a minimum follow-up of 60 months, the median OS was more than 60.0 months (median not reached) in the iigokmzby-aneb-spntfxjhhu group and 36.9 months in the nivolumab group, as compared with 19.9 months in the ipilimumab group (HR for with nivolumab plus ipilimumab vs. ipilimumab, 0.52; HR for with nivolumab vs. ipilimumab, 0.63). OS at 5 years was 52% in the nivolumab-plus- ipilimumab group and 44% in the nivolumab group, as compared with 26% in the ipilimumab group. (Duarte et al, N Engl J Med 2019; 381:5737-3271.) CheckMate 511 trial, a phase phase IIIB/IV study which evaluated safety profile and efficacy of alternative dose regimen. The study met its primary end point, demonstrating a significantly lower incidence of treatment-related grade 3-5 adverse events with Opdivo 3 mg/kg/Yervoy 1 mg/kg versus Opdivo 1 mg/kg/Yervoy 3 mg/kg. Descriptive analyses showed that there were no meaningful differences between the groups for any efficacy end point (Ruth et. peter, 09/06/18, [facility]). Based on results of the above two studies, will plan to initiate treatment with Opdivo 3 mg/kg and Yervoy 1 mg/kg. Bone mets. - May benefit from Xgeva, pending dental evaluation. It would be important to obtain genetic evaluation on tumor with [facility] to assess for presence of targetable abnormalities (specifically BRAF mutation). The patient does not voice any social stressors. Plan 1. Opdivo 3 mg/Yervoy 1 mg q 3 weeks x 4 cycles, followed by Opdivo alone q 2-4 weeks will be started, if pathology confirms presence of recurrent melanoma. 2. [facility] on 11/2018 tumor specimen, [place]. 3. Xgeva q 4 weeks will be started, pending dental evaluation. Will discuss further on next visit. 4. Staging PET/CT, scheduled on 11/30/2019. 5. Port placement to be arranged while patient is admitted at [place]. 6. Left axillary mass biopsy with IR, to be arranged while patient is admitted at [place]. 7. Will request pathology from initial diagnosis of melanoma in 11/2018. 8. Follow-up via ITV on 12/04/2019 to discuss PET/CT results, pathology, and further management. KRISTINA MEJIAS MD D/W [facility] // JAMIE ALLEN [phone] WANTS TO WAIT FOR PORT PLACEMENT ONCOLOGY TO EXPLAIN TO ETHEL 29 MIN pt exam, chart review, > 50% of time spent with exam, chart review, pt care coordination History of Present Illness History of Present Illness No acute events reported overnight, case discussed with nursing staff patient in no acute distress no complaints during my visit Discussed with the POA over the phone Vitals Vitals Vital Signs Date Time Temp Pulse Resp B/P (MAP) Pulse Ox O2 Delivery O2 Flow Rate FiO2 12/01/19 09:24 20 Room Air 12/01/19 07:59 97.8 74 114/75 (88) 91 97.8 Physical Exam General: Alert, Oriented X3, Cooperative, No acute distress Heart: Regular rate, Normal S1 Lungs: Clear Abdomen: Normal bowel sounds, Soft, No tenderness, No hepatosplenomegaly, No masses Extremities: No clubbing, No tenderness/swelling Skin: No rashes, No significant lesion Labs LABS Laboratory Tests Test 11/30/19 16:37 11/30/19 20:46 12/01/19 07:41 Glucose (Fingerstick) 101 mg/dL (70-99) 122 mg/dL (70-99) 91 mg/dL (70-99) Assessment and Plan Assessmemt and Plan Problems Medical Problems: (1) Compression fracture of L4 vertebra Status: Acute (2) Low back pain Status: Acute (3) Metastatic neoplastic disease Status: Acute (4) Right flank pain Status: Acute Comment Review of Relevant I have reviewed the following items sylvia (where applicable) has been applied. Labs Laboratory Tests Test 11/29/19 14:50 11/29/19 16:09 11/29/19 21:04 11/30/19 07:42 Coronavirus (COVID-19)(PCR) See separate report Glucose (Fingerstick) 134 mg/dL (70-99) 112 mg/dL (70-99) 109 mg/dL (70-99) Test 11/30/19 10:48 11/30/19 16:37 11/30/19 20:46 12/01/19 07:41 Glucose (Fingerstick) 127 mg/dL (70-99) 101 mg/dL (70-99) 122 mg/dL (70-99) 91 mg/dL (70-99) Laboratory Tests Test 11/30/19 16:37 11/30/19 20:46 12/01/19 07:41 Glucose (Fingerstick) 101 mg/dL (70-99) 122 mg/dL (70-99) 91 mg/dL (70-99) Medications Current Medications Sodium Chloride 1,000 ml @ 1,000 mls/hr Q1H IV Last administered on 11/21/19at 21:54; Start 11/21/19 at 21:30; Stop 11/21/19 at 22:29; Status DC Ondansetron HCl (Zofran) 4 mg 1X ONCE IVP Last administered on 11/21/19at 21:54; Start 11/21/19 at 21:30; Stop 11/21/19 at 21:31; Status DC Ketorolac Tromethamine (Toradol 30mg Vial) 30 mg 1X ONCE IVP Last administered on 11/21/19at 21:55; Start 11/21/19 at 21:30; Stop 11/21/19 at 21:31; Status DC Ondansetron HCl (Zofran) 4 mg PRN Q8HRS PRN IV NAUSEA/VOMITING; Start 11/21/19 at 23:30; Stop 11/22/19 at 06:04; Status DC Morphine Sulfate (Morphine Sulfate) 4 mg PRN Q2HR PRN IV PAIN Last administered on 11/30/19at 03:43; Start 11/21/19 at 23:30 Ondansetron HCl (Zofran) 4 mg PRN Q4HRS PRN IV NAUSEA/VOMITING Last administered on 11/27/19at 19:35; Start 11/22/19 at 06:00 Aspirin (Aspirin Chewable) 81 mg DAILYWBKFT PO Last administered on 12/01/19 09:23; Start 11/22/19 at 08:00 Atorvastatin Calcium (Lipitor) 20 mg HS PO ; Start 11/22/19 at 21:00; Stop 11/22/19 at 09:35; Status DC Docusate Sodium (Colace) 100 mg BID PO Last administered on 12/01/19 09:23; Start 11/22/19 at 09:00 Acetaminophen/ Hydrocodone Bitart (Lortab 5/325) 1 tab PRN Q4HRS PRN PO MODERATE PAIN 4-6 Last administered on 11/30/19at 23:27; Start 11/22/19 at 06:00 Ibuprofen (Motrin) 400 mg PRN Q6HRS PRN PO INFLAMMATION Last administered on 12/01/19 09:23; Start 11/22/19 at 06:00 Fentanyl (Duragesic 12mcg/ Hr Patch) 1 patch Q3DAYS TD Last administered on 12/01/19 09:24; Start 11/22/19 at 09:00 Enoxaparin Sodium (Lovenox 40mg Syringe) 40 mg Q24H SQ Last administered on 11/22/19 08:35; Start 11/22/19 at 10:00; Stop 11/22/19 at 17:03; Status DC Insulin Human Lispro (HumaLOG) 0-7 UNITS TIDACHC SQ Last administered on 11/28/19at 17:44; Start 11/22/19 at 07:30 Dextrose (Dextrose 50%-Water Syringe) 12.5 gm PRN Q15MIN PRN IV SEE COMMENTS; Start 11/22/19 at 06:00 Potassium Chloride (Klor-Con) 40 meq 1X ONCE PO Last administered on 11/22/19at 16:12; Start 11/22/19 at 14:00; Stop 11/22/19 at 14:01; Status DC Iohexol (Omnipaque 240 Mg/ml) 50 ml STK-MED ONCE .ROUTE ; Start 11/23/19 at 11:28; Stop 11/23/19 at 11:28; Status DC Lidocaine HCl 20 ml STK-MED ONCE .ROUTE ; Start 11/23/19 at 11:28; Stop 11/23/19 at 11:28; Status DC Cefazolin Sodium (Ancef) 1 gm STK-MED ONCE IVP ; Start 11/23/19 at 14:09; Stop 11/23/19 at 14:09; Status DC Midazolam HCl (Versed) 5 mg STK-MED ONCE .ROUTE ; Start 11/23/19 at 14:09; Stop 11/23/19 at 14:09; Status DC Fentanyl Citrate (Fentanyl 2ml Vial) 100 mcg STK-MED ONCE .ROUTE ; Start 11/23/19 at 14:09; Stop 11/23/19 at 14:09; Status DC Midazolam HCl (Versed) 5 mg 1X ONCE IV Last administered on 11/23/19at 15:33; Start 11/23/19 at 15:15; Stop 11/23/19 at 15:30; Status DC Fentanyl Citrate (Fentanyl 2ml Vial) 100 mcg 1X ONCE IV Last administered on 11/23/19at 15:34; Start 11/23/19 at 15:15; Stop 11/23/19 at 15:30; Status DC Lidocaine HCl (Lidocaine 1% 20ml Vial) 20 ml 1X ONCE INJ ; Start 11/23/19 at 15:15; Stop 11/23/19 at 15:16; Status Cancel Iohexol (Omnipaque 240 Mg/ml) 50 ml 1X ONCE IJ Last administered on 11/23/19at 15:32; Start 11/23/19 at 15:15; Stop 11/23/19 at 15:30; Status DC Cefazolin Sodium (Ancef) 1 gm 1X ONCE IVP Last administered on 11/23/19at 15:33; Start 11/23/19 at 15:15; Stop 11/23/19 at 15:30; Status DC Lidocaine HCl 20 ml 1X ONCE IJ ; Start 11/23/19 at 15:45; Stop 11/23/19 at 15:46; Status DC Ondansetron HCl (Zofran) 4 mg PRN Q6HRS PRN IV NAUSEA/VOMITING; Start 11/27/19 at 07:00; Stop 11/27/19 at 19:00; Status DC Fentanyl Citrate (Fentanyl 2ml Vial) 25 mcg PRN Q5MIN PRN IV MILD PAIN 1-3; Start 11/27/19 at 07:00; Stop 11/27/19 at 19:00; Status DC Fentanyl Citrate (Fentanyl 2ml Vial) 50 mcg PRN Q5MIN PRN IV MODERATE TO SEVERE PAIN; Start 11/27/19 at 07:00; Stop 11/27/19 at 19:00; Status DC Morphine Sulfate (Morphine Sulfate) 1 mg PRN Q10MIN PRN IV SEVERE PAIN 7-10; Start 11/27/19 at 07:00; Stop 11/27/19 at 19:00; Status DC Ringer's Solution 1,000 ml @ 30 mls/hr Q24H IV ; Start 11/27/19 at 07:00; Stop 11/27/19 at 18:59; Status DC Lidocaine HCl (Xylocaine-Mpf 1% 2ml Vial) 2 ml PRN 1X PRN ID PRIOR TO IV START; Start 11/27/19 at 07:00; Stop 11/27/19 at 19:00; Status DC Hydromorphone HCl (Dilaudid) 0.5 mg PRN Q10MIN PRN IV SEV PAIN, Second choice; Start 11/27/19 at 07:00; Stop 11/27/19 at 19:00; Status DC Prochlorperazine Edisylate (Compazine) 5 mg PACU PRN PRN IV NAUSEA, MRX1; Start 11/27/19 at 07:00; Stop 11/27/19 at 19:00; Status DC Active Scripts Active Reported Colace (Docusate Sodium) 100 Mg Capsule 1 Cap PO BID [place] 5-325 Tablet (Acetaminophen/Hydrocodone Bitart) 1 Each Tablet 1 Tab PO Q4- 6HRS Ibuprofen 400 Mg Tablet 400 Mg PO PRN Q6HRS PRN Atorvastatin Calcium 20 Mg Tablet 1 Tab PO DAILY Aspirin 81 Mg Tab.chew 1 Tab PO DAILY Metformin Hcl 500 Mg Tablet 500 Mg PO BIDWMEALS Vitals/I & O Vital Sign - Last 24 Hours 11/30/19 11/30/19 11/30/19 11/30/19 15:00 19:06 19:20 19:35 Temp 98.1 98.1 98.1 98.1 Pulse 78 97 Resp 18 20 B/P (MAP) 120/62 (81) 109/86 (94) Pulse Ox 94 97 O2 Delivery Room Air Room Air Room Air Room Air 11/30/19 11/30/19 11/30/19 12/01/19 20:53 23:27 23:35 00:46 Temp 97.7 97.7 Pulse 76 Resp 22 B/P (MAP) 111/78 (89) Pulse Ox 95 O2 Delivery Room Air Room Air Room Air Room Air 12/01/19 12/01/19 12/01/19 03:12 07:59 09:24 Temp 98.0 97.8 98.0 97.8 Pulse 70 74 Resp 21 18 20 B/P (MAP) 97/56 (70) 114/75 (88) Pulse Ox 96 91 O2 Delivery Room Air Room Air Room Air Intake and Output 11/30/19 11/30/19 12/01/19 15:00 23:00 07:00 Output Total 250 ml 400 ml Balance -250 ml -400 ml KELLY RUSSO MD December 01, 2019 11:29
[2019-12-01 11:59] VITALS: BP 107/71
[2019-12-01 12:01] LABS: BASO % 1 % (0-3); EOS # 0.1 x10^3/uL (0.0-0.7); EOS % 2 % (0-3); HEMATOCRIT 42.4 % (39.0-53.0); HEMOGLOBIN 14.2 g/dL (13.0-17.5); LYMPH % 12 % (24-48); MEAN CORPUSCULAR HEMOGLOBIN 29 pg (25-35); MEAN CORPUSCULAR HGB CONC 34 g/dL (31-37); MEAN CORPUSCULAR VOLUME 87 fL (79-100); MONO % 12 % (0-9); NEUT # 6.4 x10^3/uL (1.8-7.7); NEUT % 75 % (31-73); PLATELET COUNT 417 x10^3/uL (140-400); RED BLOOD COUNT 4.88 x10^6/uL (4.30-5.70); RED CELL DISTRIBUTION WIDTH 13.2 % (11.5-14.5); WHITE BLOOD COUNT 8.6 x10^3/uL (4.0-11.0)
[2019-12-01 12:08] LABS: ALBUMIN 2.5 g/dL (3.4-5.0); ALBUMIN/GLOBULIN RATIO 0.5 (1.0-1.7); CALCIUM 9.1 mg/dL (8.5-10.1); CREATININE 0.7 mg/dL (0.7-1.3); GFR 117.5; POTASSIUM 4.2 mmol/L (3.5-5.1); TOTAL BILIRUBIN 0.4 mg/dL (0.2-1.0); TOTAL PROTEIN 7.5 g/dL (6.4-8.2)
[2019-12-01 15:59] VITALS: BP 118/83
[2019-12-01 19:00] VITALS: BP 101/66
[2019-12-01 23:00] VITALS: BP 109/78
[2019-12-02] MEDS: IBUPROFEN 400 MG TABLET. PO PRN ×4 (02:28→23:45)
[2019-12-02 03:00] VITALS: BP 109/79
[2019-12-02] MEDS: HYDROcodone/APAP 5/325MG 1 TAB TABLET PO PRN (06:29)
[2019-12-02] MEDS: INSULIN LISPRO 300 UNITS/3 ML VIAL. SQ SCH ×4 (07:30→20:52)
[2019-12-02 07:59] VITALS: BP 108/71
[2019-12-02] MEDS: DOCUSATE SODIUM 100 MG CAPSULE. PO SCH ×2 (09:11→20:52)
[2019-12-02] MEDS: ASPIRIN CHEWABLE 81 MG TABLET. PO SCH (09:11)
--- NOTE | 2019-12-02 10:30 | PDOC ---
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 Pathologic compression fracture at the L4 vertebral body. Osteolytic lesions at L4 and at L5, highly suspicious for osteolytic metastatic deposits with associated pathologic fracture and mild asymmetric right-sided loss of height at L4. The anterolateral aspect of the L5 vertebral body also demonstrates permeative osteolysis with cortical destruction, consistent with osteolytic metastatic deposit. Fluoroscopically guided biopsy, L4 done L4 kyphoplasty done DM2, non insulin dependent HLD, on statin therapy Pain secondary to bone mets Hypokalemia Hyponatremia Elevated LFTs hx of melanoma history of melanoma removed from the lower back 6 to 8 months hx of TBI PLAN Continue with current management port placement IP: Pt is COVID negative. 11/30 12/01 gen surg consult for port D/W RN Recommendations from oncologist are as follow Based on [id number] trial, results were published in article in NEJM (Five- Year Survival with Combined Nivolumab and Ipilimumab in Advanced Melanoma), patients with previously untreated advanced melanoma were assigned to receive one of the following regimens: nivolumab (at a dose of 1 mg per kilogram of body weight) plus ipilimumab (3 mg per kilogram) every 3 weeks for four doses, followed by nivolumab (3 mg per kilogram every 2 weeks); nivolumab (3 mg per kilogram every 2 weeks) plus ipilimumab-matched placebo; or ipilimumab (3 mg per kilogram every 3 weeks for four doses) plus nivolumab-matched placebo. At a minimum follow-up of 60 months, the median OS was more than 60.0 months (median not reached) in the pqeimxcwy-rlxw-xkwuuhuyhy group and 36.9 months in the nivolumab group, as compared with 19.9 months in the ipilimumab group (HR for with nivolumab plus ipilimumab vs. ipilimumab, 0.52; HR for with nivolumab vs. ipilimumab, 0.63). OS at 5 years was 52% in the uhikwndmw-ljai-eresutebfd group and 44% in the nivolumab group, as compared with 26% in the ipilimumab group. (Duarte et al, N Engl J Med 2019; 381:4191-7053.) CheckMate 511 trial, a phase phase IIIB/IV study which evaluated safety profile and efficacy of alternative dose regimen. The study met its primary end point, demonstrating a significantly lower incidence of treatment-related grade 3-5 adverse events with Opdivo 3 mg/kg/Yervoy 1 mg/kg versus Opdivo 1 mg/kg/Yervoy 3 mg/kg. Descriptive analyses showed that there were no meaningful differences between the groups for any efficacy end point (Ruth corona. peter, 09/06/18, [facility] [place]). Based on results of the above two studies, will plan to initiate treatment with Opdivo 3 mg/kg and Yervoy 1 mg/kg. Bone mets. - May benefit from Xgeva, pending dental evaluation. It would be important to obtain genetic evaluation on tumor with [facility] to assess for presence of targetable abnormalities (specifically BRAF mutation). The patient does not voice any social stressors. Plan 1. Opdivo 3 mg/Yervoy 1 mg q 3 weeks x 4 cycles, followed by Opdivo alone q 2-4 weeks will be started, if pathology confirms presence of recurrent melanoma. [facility] 3. Xgeva q 4 weeks will be started, pending dental evaluation. Will discuss further on next visit. 4. Staging PET/CT, scheduled on 11/30/2019. 5. Port placement to be arranged while patient is admitted at [facility]. 6. Left axillary mass biopsy with IR, to be arranged while patient is admitted at [facility]. 7. Will request pathology from initial diagnosis of melanoma in 11/2018. 8. Follow-up via [facility] on 12/04/2019 to discuss PET/CT results, pathology, and further management. KRISTINA MEJIAS MD D/W [facility] // JAMIE ALLEN [phone] WANTS TO WAIT FOR PORT PLACEMENT ONCOLOGY TO EXPLAIN TO DPOA 29 MIN pt exam, chart review, > 50% of time spent with exam, chart review, pt care coordination History of Present Illness History of Present Illness No acute events reported overnight, case discussed with nursing staff patient in no acute distress no complaints during my visit Discussed with the POA over the phone Vitals Vitals Vital Signs Date Time Temp Pulse Resp B/P (MAP) Pulse Ox O2 Delivery O2 Flow Rate FiO2 12/02/19 07:59 98.1 74 18 108/71 (83) 95 Room Air 98.1 Physical Exam General: Alert, Oriented X3, Cooperative, No acute distress Heart: Regular rate, Normal S1 Lungs: Clear Abdomen: Normal bowel sounds, Soft, No tenderness, No hepatosplenomegaly, No masses Extremities: No clubbing, No tenderness/swelling Skin: No rashes, No significant lesion Labs LABS Laboratory Tests Test 12/01/19 11:40 12/01/19 11:43 12/01/19 16:55 12/01/19 20:26 White Blood Count 8.6 x10^3/uL (4.0-11.0) Red Blood Count 4.88 x10^6/uL (4.30-5.70) Hemoglobin 14.2 g/dL (13.0-17.5) Hematocrit 42.4 % (39.0-53.0) Mean Corpuscular Volume 87 fL (79-100) Mean Corpuscular Hemoglobin 29 pg (25-35) Mean Corpuscular Hemoglobin Concent 34 g/dL (31-37) Red Cell Distribution Width 13.2 % (11.5-14.5) Platelet Count 417 x10^3/uL (140-400) Neutrophils (%) (Auto) 75 % (31-73) Lymphocytes (%) (Auto) 12 % (24-48) Monocytes (%) (Auto) 12 % (0-9) Eosinophils (%) (Auto) 2 % (0-3) Basophils (%) (Auto) 1 % (0-3) Neutrophils # (Auto) 6.4 x10^3/uL (1.8-7.7) Lymphocytes # (Auto) 1.0 x10^3/uL (1.0-4.8) Monocytes # (Auto) 1.0 x10^3/uL (0.0-1.1) Eosinophils # (Auto) 0.1 x10^3/uL (0.0-0.7) Basophils # (Auto) 0.0 x10^3/uL (0.0-0.2) Sodium Level 141 mmol/L (136-145) Potassium Level 4.2 mmol/L (3.5-5.1) Chloride Level 102 mmol/L (98-107) Carbon Dioxide Level 30 mmol/L (21-32) Anion Gap 9 (6-14) Blood Urea Nitrogen 30 mg/dL (8-26) Creatinine 0.7 mg/dL (0.7-1.3) Estimated GFR (Cockcroft-Gault) 117.5 BUN/Creatinine Ratio 43 (6-20) Glucose Level 116 mg/dL (70-99) Calcium Level 9.1 mg/dL (8.5-10.1) Total Bilirubin 0.4 mg/dL (0.2-1.0) Aspartate Amino Transf (AST/SGOT) 56 U/L (15-37) Alanine Aminotransferase (ALT/SGPT) 88 U/L (16-63) Alkaline Phosphatase 254 U/L (46-116) Total Protein 7.5 g/dL (6.4-8.2) Albumin 2.5 g/dL (3.4-5.0) Albumin/Globulin Ratio 0.5 (1.0-1.7) Glucose (Fingerstick) 106 mg/dL (70-99) 149 mg/dL (70-99) 124 mg/dL (70-99) Test 12/02/19 07:22 Glucose (Fingerstick) 94 mg/dL (70-99) Assessment and Plan Assessmemt and Plan Problems Medical Problems: (1) Compression fracture of L4 vertebra Status: Acute (2) Low back pain Status: Acute (3) Metastatic neoplastic disease Status: Acute (4) Right flank pain Status: Acute Comment Review of Relevant I have reviewed the following items sylvia (where applicable) has been applied. Labs Laboratory Tests Test 11/30/19 10:48 11/30/19 16:37 11/30/19 20:46 12/01/19 07:41 Glucose (Fingerstick) 127 mg/dL (70-99) 101 mg/dL (70-99) 122 mg/dL (70-99) 91 mg/dL (70-99) Test 12/01/19 11:40 12/01/19 11:43 12/01/19 16:55 12/01/19 20:26 White Blood Count 8.6 x10^3/uL (4.0-11.0) Red Blood Count 4.88 x10^6/uL (4.30-5.70) Hemoglobin 14.2 g/dL (13.0-17.5) Hematocrit 42.4 % (39.0-53.0) Mean Corpuscular Volume 87 fL (79-100) Mean Corpuscular Hemoglobin 29 pg (25-35) Mean Corpuscular Hemoglobin Concent 34 g/dL (31-37) Red Cell Distribution Width 13.2 % (11.5-14.5) Platelet Count 417 x10^3/uL (140-400) Neutrophils (%) (Auto) 75 % (31-73) Lymphocytes (%) (Auto) 12 % (24-48) Monocytes (%) (Auto) 12 % (0-9) Eosinophils (%) (Auto) 2 % (0-3) Basophils (%) (Auto) 1 % (0-3) Neutrophils # (Auto) 6.4 x10^3/uL (1.8-7.7) Lymphocytes # (Auto) 1.0 x10^3/uL (1.0-4.8) Monocytes # (Auto) 1.0 x10^3/uL (0.0-1.1) Eosinophils # (Auto) 0.1 x10^3/uL (0.0-0.7) Basophils # (Auto) 0.0 x10^3/uL (0.0-0.2) Sodium Level 141 mmol/L (136-145) Potassium Level 4.2 mmol/L (3.5-5.1) Chloride Level 102 mmol/L (98-107) Carbon Dioxide Level 30 mmol/L (21-32) Anion Gap 9 (6-14) Blood Urea Nitrogen 30 mg/dL (8-26) Creatinine 0.7 mg/dL (0.7-1.3) Estimated GFR (Cockcroft-Gault) 117.5 BUN/Creatinine Ratio 43 (6-20) Glucose Level 116 mg/dL (70-99) Calcium Level 9.1 mg/dL (8.5-10.1) Total Bilirubin 0.4 mg/dL (0.2-1.0) Aspartate Amino Transf (AST/SGOT) 56 U/L (15-37) Alanine Aminotransferase (ALT/SGPT) 88 U/L (16-63) Alkaline Phosphatase 254 U/L (46-116) Total Protein 7.5 g/dL (6.4-8.2) Albumin 2.5 g/dL (3.4-5.0) Albumin/Globulin Ratio 0.5 (1.0-1.7) Glucose (Fingerstick) 106 mg/dL (70-99) 149 mg/dL (70-99) 124 mg/dL (70-99) Test 12/02/19 07:22 Glucose (Fingerstick) 94 mg/dL (70-99) Laboratory Tests Test 12/01/19 11:40 12/01/19 11:43 12/01/19 16:55 12/01/19 20:26 White Blood Count 8.6 x10^3/uL (4.0-11.0) Red Blood Count 4.88 x10^6/uL (4.30-5.70) Hemoglobin 14.2 g/dL (13.0-17.5) Hematocrit 42.4 % (39.0-53.0) Mean Corpuscular Volume 87 fL (79-100) Mean Corpuscular Hemoglobin 29 pg (25-35) Mean Corpuscular Hemoglobin Concent 34 g/dL (31-37) Red Cell Distribution Width 13.2 % (11.5-14.5) Platelet Count 417 x10^3/uL (140-400) Neutrophils (%) (Auto) 75 % (31-73) Lymphocytes (%) (Auto) 12 % (24-48) Monocytes (%) (Auto) 12 % (0-9) Eosinophils (%) (Auto) 2 % (0-3) Basophils (%) (Auto) 1 % (0-3) Neutrophils # (Auto) 6.4 x10^3/uL (1.8-7.7) Lymphocytes # (Auto) 1.0 x10^3/uL (1.0-4.8) Monocytes # (Auto) 1.0 x10^3/uL (0.0-1.1) Eosinophils # (Auto) 0.1 x10^3/uL (0.0-0.7) Basophils # (Auto) 0.0 x10^3/uL (0.0-0.2) Sodium Level 141 mmol/L (136-145) Potassium Level 4.2 mmol/L (3.5-5.1) Chloride Level 102 mmol/L (98-107) Carbon Dioxide Level 30 mmol/L (21-32) Anion Gap 9 (6-14) Blood Urea Nitrogen 30 mg/dL (8-26) Creatinine 0.7 mg/dL (0.7-1.3) Estimated GFR (Cockcroft-Gault) 117.5 BUN/Creatinine Ratio 43 (6-20) Glucose Level 116 mg/dL (70-99) Calcium Level 9.1 mg/dL (8.5-10.1) Total Bilirubin 0.4 mg/dL (0.2-1.0) Aspartate Amino Transf (AST/SGOT) 56 U/L (15-37) Alanine Aminotransferase (ALT/SGPT) 88 U/L (16-63) Alkaline Phosphatase 254 U/L (46-116) Total Protein 7.5 g/dL (6.4-8.2) Albumin 2.5 g/dL (3.4-5.0) Albumin/Globulin Ratio 0.5 (1.0-1.7) Glucose (Fingerstick) 106 mg/dL (70-99) 149 mg/dL (70-99) 124 mg/dL (70-99) Test 12/02/19 07:22 Glucose (Fingerstick) 94 mg/dL (70-99) Medications Current Medications Sodium Chloride 1,000 ml @ 1,000 mls/hr Q1H IV Last administered on 11/21/19at 21:54; Start 11/21/19 at 21:30; Stop 11/21/19 at 22:29; Status DC Ondansetron HCl (Zofran) 4 mg 1X ONCE IVP Last administered on 11/21/19at 21:54; Start 11/21/19 at 21:30; Stop 11/21/19 at 21:31; Status DC Ketorolac Tromethamine (Toradol 30mg Vial) 30 mg 1X ONCE IVP Last administered on 11/21/19at 21:55; Start 11/21/19 at 21:30; Stop 11/21/19 at 21:31; Status DC Ondansetron HCl (Zofran) 4 mg PRN Q8HRS PRN IV NAUSEA/VOMITING; Start 11/21/19 at 23:30; Stop 11/22/19 at 06:04; Status DC Morphine Sulfate (Morphine Sulfate) 4 mg PRN Q2HR PRN IV PAIN Last administered on 11/30/19at 03:43; Start 11/21/19 at 23:30 Ondansetron HCl (Zofran) 4 mg PRN Q4HRS PRN IV NAUSEA/VOMITING Last administered on 11/27/19at 19:35; Start 11/22/19 at 06:00 Aspirin (Aspirin Chewable) 81 mg DAILYWBKFT PO Last administered on 12/02/19at 09:11; Start 11/22/19 at 08:00 Atorvastatin Calcium (Lipitor) 20 mg HS PO ; Start 11/22/19 at 21:00; Stop 11/22/19 at 09:35; Status DC Docusate Sodium (Colace) 100 mg BID PO Last administered on 12/02/19at 09:11; Start 11/22/19 at 09:00 Acetaminophen/ Hydrocodone Bitart (Lortab 5/325) 1 tab PRN Q4HRS PRN PO MODERATE PAIN 4-6 Last administered on 12/02/19at 06:29; Start 11/22/19 at 06:00 Ibuprofen (Motrin) 400 mg PRN Q6HRS PRN PO INFLAMMATION Last administered on 12/02/19at 10:22; Start 11/22/19 at 06:00 Fentanyl (Duragesic 12mcg/ Hr Patch) 1 patch Q3DAYS TD Last administered on 12/01/19at 09:24; Start 11/22/19 at 09:00 Enoxaparin Sodium (Lovenox 40mg Syringe) 40 mg Q24H SQ Last administered on 11/22/19at 08:35; Start 11/22/19 at 10:00; Stop 11/22/19 at 17:03; Status DC Insulin Human Lispro (HumaLOG) 0-7 UNITS TIDACHC SQ Last administered on 11/28/19at 17:44; Start 11/22/19 at 07:30 Dextrose (Dextrose 50%-Water Syringe) 12.5 gm PRN Q15MIN PRN IV SEE COMMENTS; Start 11/22/19 at 06:00 Potassium Chloride (Klor-Con) 40 meq 1X ONCE PO Last administered on 11/22/19at 16:12; Start 11/22/19 at 14:00; Stop 11/22/19 at 14:01; Status DC Iohexol (Omnipaque 240 Mg/ml) 50 ml STK-MED ONCE .ROUTE ; Start 11/23/19 at 11:28; Stop 11/23/19 at 11:28; Status DC Lidocaine HCl 20 ml STK-MED ONCE .ROUTE ; Start 11/23/19 at 11:28; Stop 11/23/19 at 11:28; Status DC Cefazolin Sodium (Ancef) 1 gm STK-MED ONCE IVP ; Start 11/23/19 at 14:09; Stop 11/23/19 at 14:09; Status DC Midazolam HCl (Versed) 5 mg STK-MED ONCE .ROUTE ; Start 11/23/19 at 14:09; Stop 11/23/19 at 14:09; Status DC Fentanyl Citrate (Fentanyl 2ml Vial) 100 mcg STK-MED ONCE .ROUTE ; Start 11/23/19 at 14:09; Stop 11/23/19 at 14:09; Status DC Midazolam HCl (Versed) 5 mg 1X ONCE IV Last administered on 11/23/19at 15:33; Start 11/23/19 at 15:15; Stop 11/23/19 at 15:30; Status DC Fentanyl Citrate (Fentanyl 2ml Vial) 100 mcg 1X ONCE IV Last administered on 11/23/19at 15:34; Start 11/23/19 at 15:15; Stop 11/23/19 at 15:30; Status DC Lidocaine HCl (Lidocaine 1% 20ml Vial) 20 ml 1X ONCE INJ ; Start 11/23/19 at 15:15; Stop 11/23/19 at 15:16; Status Cancel Iohexol (Omnipaque 240 Mg/ml) 50 ml 1X ONCE IJ Last administered on 11/23/19at 15:32; Start 11/23/19 at 15:15; Stop 11/23/19 at 15:30; Status DC Cefazolin Sodium (Ancef) 1 gm 1X ONCE IVP Last administered on 11/23/19at 15:33; Start 11/23/19 at 15:15; Stop 11/23/19 at 15:30; Status DC Lidocaine HCl 20 ml 1X ONCE IJ ; Start 11/23/19 at 15:45; Stop 11/23/19 at 15:46; Status DC Ondansetron HCl (Zofran) 4 mg PRN Q6HRS PRN IV NAUSEA/VOMITING; Start 11/27/19 at 07:00; Stop 11/27/19 at 19:00; Status DC Fentanyl Citrate (Fentanyl 2ml Vial) 25 mcg PRN Q5MIN PRN IV MILD PAIN 1-3; Start 11/27/19 at 07:00; Stop 11/27/19 at 19:00; Status DC Fentanyl Citrate (Fentanyl 2ml Vial) 50 mcg PRN Q5MIN PRN IV MODERATE TO SEVERE PAIN; Start 11/27/19 at 07:00; Stop 11/27/19 at 19:00; Status DC Morphine Sulfate (Morphine Sulfate) 1 mg PRN Q10MIN PRN IV SEVERE PAIN 7-10; Start 11/27/19 at 07:00; Stop 11/27/19 at 19:00; Status DC Ringer's Solution 1,000 ml @ 30 mls/hr Q24H IV ; Start 11/27/19 at 07:00; Stop 11/27/19 at 18:59; Status DC Lidocaine HCl (Xylocaine-Mpf 1% 2ml Vial) 2 ml PRN 1X PRN ID PRIOR TO IV START; Start 11/27/19 at 07:00; Stop 11/27/19 at 19:00; Status DC Hydromorphone HCl (Dilaudid) 0.5 mg PRN Q10MIN PRN IV SEV PAIN, Second choice; Start 11/27/19 at 07:00; Stop 11/27/19 at 19:00; Status DC Prochlorperazine Edisylate (Compazine) 5 mg PACU PRN PRN IV NAUSEA, MRX1; Start 11/27/19 at 07:00; Stop 11/27/19 at 19:00; Status DC Active Scripts Active Reported Colace (Docusate Sodium) 100 Mg Capsule 1 Cap PO BID Ryegate 5-325 Tablet (Acetaminophen/Hydrocodone Bitart) 1 Each Tablet 1 Tab PO Q4- 6HRS Ibuprofen 400 Mg Tablet 400 Mg PO PRN Q6HRS PRN Atorvastatin Calcium 20 Mg Tablet 1 Tab PO DAILY Aspirin 81 Mg Tab.chew 1 Tab PO DAILY Metformin Hcl 500 Mg Tablet 500 Mg PO BIDWMEALS Vitals/I & O Vital Sign - Last 24 Hours 12/01/19 12/01/19 12/01/19 12/01/19 11:59 15:59 19:00 19:50 Temp 97.9 98.1 98.5 97.9 98.1 98.5 Pulse 85 92 91 Resp 18 18 18 B/P (MAP) 107/71 (83) 118/83 (95) 101/66 (78) Pulse Ox 94 94 93 O2 Delivery Room Air Room Air Room Air Room Air 12/01/19 12/02/19 12/02/19 12/02/19 23:00 03:00 06:29 07:59 Temp 99.0 98.0 98.1 99.0 98.0 98.1 Pulse 93 79 74 Resp 18 18 18 B/P (MAP) 109/78 (88) 109/79 (89) 108/71 (83) Pulse Ox 97 96 95 O2 Delivery Room Air Room Air Room Air Room Air Intake and Output 12/01/19 12/01/19 12/02/19 15:00 23:00 07:00 Intake Total 340 ml 50 ml Output Total 100 ml 400 ml Balance 240 ml -350 ml KELLY RUSSO MD December 02, 2019 10:30
[2019-12-02 11:25] VITALS: BP 105/71
[2019-12-02 15:00] VITALS: BP 107/78
[2019-12-02 19:00] VITALS: BP 113/77
[2019-12-02 23:00] VITALS: BP 119/77
[2019-12-03] MEDS: HYDROcodone/APAP 5/325MG 1 TAB TABLET PO PRN ×3 (02:48→20:21)
[2019-12-03 03:07] VITALS: BP 119/77
[2019-12-03] MEDS: IBUPROFEN 400 MG TABLET. PO PRN ×3 (06:36→16:18)
[2019-12-03 07:00] VITALS: BP 112/82
[2019-12-03] MEDS: INSULIN LISPRO 300 UNITS/3 ML VIAL. SQ SCH ×4 (07:30→21:00)
[2019-12-03] MEDS: DOCUSATE SODIUM 100 MG CAPSULE. PO SCH ×2 (07:53→20:22)
[2019-12-03] MEDS: ONDANSETRON PF 4 MG/2 ML VIAL. IV PRN (07:54)
[2019-12-03] MEDS: ASPIRIN CHEWABLE 81 MG TABLET. PO SCH (07:57)
[2019-12-03 11:00] VITALS: BP 110/80
[2019-12-03] MEDS: fentaNYL 12MCG/HR PATCH 1 PATCH PATCH.TD72 TD SCH (11:41)
--- NOTE | 2019-12-03 11:56 | PDOC ---
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 Pathologic compression fracture at the L4 vertebral body. Osteolytic lesions at L4 and at L5, highly suspicious for osteolytic metastatic deposits with associated pathologic fracture and mild asymmetric right-sided loss of height at L4. The anterolateral aspect of the L5 vertebral body also demonstrates permeative osteolysis with cortical destruction, consistent with osteolytic metastatic deposit. Fluoroscopically guided biopsy, L4 done L4 kyphoplasty done DM2, non insulin dependent HLD, on statin therapy Pain secondary to bone mets Hypokalemia Hyponatremia Elevated LFTs hx of melanoma history of melanoma removed from the lower back 6 to 8 months hx of TBI PLAN Continue with current management port placement IP: Pt is COVID negative. 11/30 12/02 gen surg consult for port D/W RN Recommendations from oncologist are as follow Based on [id number] trial, results were published in article in NEJM (Five- Year Survival with Combined Nivolumab and Ipilimumab in Advanced Melanoma), patients with previously untreated advanced melanoma were assigned to receive one of the following regimens: nivolumab (at a dose of 1 mg per kilogram of body weight) plus ipilimumab (3 mg per kilogram) every 3 weeks for four doses, followed by nivolumab (3 mg per kilogram every 2 weeks); nivolumab (3 mg per kilogram every 2 weeks) plus ipilimumab-matched placebo; or ipilimumab (3 mg per kilogram every 3 weeks for four doses) plus nivolumab-matched placebo. At a minimum follow-up of 60 months, the median OS was more than 60.0 months (median not reached) in the [id number]-haktorkeyz group and 36.9 months in the nivolumab group, as compared with 19.9 months in the ipilimumab group (HR for with nivolumab plus ipilimumab vs. ipilimumab, 0.52; HR for with nivolumab vs. ipilimumab, 0.63). OS at 5 years was 52% in the bkpoteooc-hfwl-xxjxierpif group and 44% in the nivolumab group, as compared with 26% in the ipilimumab group. (Duarte et al, N Engl J Med 2019; 381:2777-9150.) CheckMate 511 trial, a phase phase IIIB/IV study which evaluated safety profile and efficacy of alternative dose regimen. The study met its primary end point, demonstrating a significantly lower incidence of treatment-related grade 3-5 adverse events with Opdivo 3 mg/kg/Yervoy 1 mg/kg versus Opdivo 1 mg/kg/Yervoy 3 mg/kg. Descriptive analyses showed that there were no meaningful differences between the groups for any efficacy end point (Ruth corona. peter, 09/06/18, [facility] [place]). Based on results of the above two studies, will plan to initiate treatment with Opdivo 3 mg/kg and Yervoy 1 mg/kg. Bone mets. - May benefit from Xgeva, pending dental evaluation. It would be important to obtain genetic evaluation on tumor with [facility] to assess for presence of targetable abnormalities (specifically BRAF mutation). The patient does not voice any social stressors. Plan 1. Opdivo 3 mg/Yervoy 1 mg q 3 weeks x 4 cycles, followed by Opdivo alone q 2-4 weeks will be started, if pathology confirms presence of recurrent melanoma. [facility]. 3. Xgeva q 4 weeks will be started, pending dental evaluation. Will discuss further on next visit. 4. Staging PET/CT, scheduled on 11/30/2019. 5. Port placement to be arranged while patient is admitted at [facility]. 6. Left axillary mass biopsy with IR, to be arranged while patient is admitted at [facility]. 7. Will request pathology from initial diagnosis of melanoma in 11/2018. 8. Follow-up via [facility] on 12/04/2019 to discuss PET/CT results, pathology, and further management. KRISTINA MEJIAS MD D/W [facility] // JAMIE ALLEN [phone] WANTS TO WAIT FOR PORT PLACEMENT ONCOLOGY TO EXPLAIN TO DPOA 29 MIN pt exam, chart review, > 50% of time spent with exam, chart review, pt care coordination History of Present Illness History of Present Illness No acute events reported overnight, case discussed with nursing staff patient in no acute distress no complaints during my visit Discussed with the POA over the phone Vitals Vitals Vital Signs Date Time Temp Pulse Resp B/P (MAP) Pulse Ox O2 Delivery O2 Flow Rate FiO2 12/03/19 11:41 20 12/03/19 11:00 98.0 68 110/80 (90) 96 Room Air 98.0 12/03/19 07:26 2.0 Physical Exam General: Alert, Oriented X3, Cooperative, No acute distress Heart: Regular rate, Normal S1 Lungs: Clear Abdomen: Normal bowel sounds, Soft, No tenderness, No hepatosplenomegaly, No masses Extremities: No clubbing, No tenderness/swelling Skin: No rashes, No significant lesion Labs LABS Laboratory Tests Test 12/02/19 16:45 12/02/19 20:28 12/03/19 07:37 12/03/19 11:50 Glucose (Fingerstick) 122 mg/dL (70-99) 108 mg/dL (70-99) 88 mg/dL (70-99) 116 mg/dL (70-99) Assessment and Plan Assessmemt and Plan Problems Medical Problems: (1) Compression fracture of L4 vertebra Status: Acute (2) Low back pain Status: Acute (3) Metastatic neoplastic disease Status: Acute (4) Right flank pain Status: Acute Comment Review of Relevant I have reviewed the following items sylvia (where applicable) has been applied. Labs Laboratory Tests Test 12/01/19 16:55 12/01/19 20:26 12/02/19 07:22 12/02/19 11:54 Glucose (Fingerstick) 149 mg/dL (70-99) 124 mg/dL (70-99) 94 mg/dL (70-99) 86 mg/dL (70-99) Test 12/02/19 16:45 12/02/19 20:28 12/03/19 07:37 12/03/19 11:50 Glucose (Fingerstick) 122 mg/dL (70-99) 108 mg/dL (70-99) 88 mg/dL (70-99) 116 mg/dL (70-99) Laboratory Tests Test 12/02/19 16:45 12/02/19 20:28 12/03/19 07:37 12/03/19 11:50 Glucose (Fingerstick) 122 mg/dL (70-99) 108 mg/dL (70-99) 88 mg/dL (70-99) 116 mg/dL (70-99) Medications Current Medications Sodium Chloride 1,000 ml @ 1,000 mls/hr Q1H IV Last administered on 11/21/19at 21:54; Start 11/21/19 at 21:30; Stop 11/21/19 at 22:29; Status DC Ondansetron HCl (Zofran) 4 mg 1X ONCE IVP Last administered on 11/21/19 21:54; Start 11/21/19 at 21:30; Stop 11/21/19 at 21:31; Status DC Ketorolac Tromethamine (Toradol 30mg Vial) 30 mg 1X ONCE IVP Last administered on 11/21/19 21:55; Start 11/21/19 at 21:30; Stop 11/21/19 at 21:31; Status DC Ondansetron HCl (Zofran) 4 mg PRN Q8HRS PRN IV NAUSEA/VOMITING; Start 11/21/19 at 23:30; Stop 11/22/19 at 06:04; Status DC Morphine Sulfate (Morphine Sulfate) 4 mg PRN Q2HR PRN IV PAIN Last administered on 11/30/19 03:43; Start 11/21/19 at 23:30 Ondansetron HCl (Zofran) 4 mg PRN Q4HRS PRN IV NAUSEA/VOMITING Last administered on 12/03/19 07:54; Start 11/22/19 at 06:00 Aspirin (Aspirin Chewable) 81 mg DAILYWBKFT PO Last administered on 12/03/19 07:57; Start 11/22/19 at 08:00 Atorvastatin Calcium (Lipitor) 20 mg HS PO ; Start 11/22/19 at 21:00; Stop 11/22/19 at 09:35; Status DC Docusate Sodium (Colace) 100 mg BID PO Last administered on 12/03/19 07:53; Start 11/22/19 at 09:00 Acetaminophen/ Hydrocodone Bitart (Lortab 5/325) 1 tab PRN Q4HRS PRN PO MODERAT E PAIN 4-6 Last administered on 12/03/19 02:48; Start 11/22/19 at 06:00 Ibuprofen (Motrin) 400 mg PRN Q6HRS PRN PO INFLAMMATION Last administered on 12/03/19 11:19; Start 11/22/19 at 06:00 Fentanyl (Duragesic 12mcg/ Hr Patch) 1 patch Q3DAYS TD Last administered on 12/03/19 11:41; Start 11/22/19 at 09:00 Enoxaparin Sodium (Lovenox 40mg Syringe) 40 mg Q24H SQ Last administered on 5/14/20at 08:35; Start 11/22/19 at 10:00; Stop 11/22/19 at 17:03; Status DC Insulin Human Lispro (HumaLOG) 0-7 UNITS TIDACHC SQ Last administered on 11/28/19at 17:44; Start 11/22/19 at 07:30 Dextrose (Dextrose 50%-Water Syringe) 12.5 gm PRN Q15MIN PRN IV SEE COMMENTS; Start 11/22/19 at 06:00 Potassium Chloride (Klor-Con) 40 meq 1X ONCE PO Last administered on 11/22/19at 16:12; Start 11/22/19 at 14:00; Stop 11/22/19 at 14:01; Status DC Iohexol (Omnipaque 240 Mg/ml) 50 ml STK-MED ONCE .ROUTE ; Start 11/23/19 at 11:28; Stop 11/23/19 at 11:28; Status DC Lidocaine HCl 20 ml STK-MED ONCE .ROUTE ; Start 11/23/19 at 11:28; Stop 11/23/19 at 11:28; Status DC Cefazolin Sodium (Ancef) 1 gm STK-MED ONCE IVP ; Start 11/23/19 at 14:09; Stop 11/23/19 at 14:09; Status DC Midazolam HCl (Versed) 5 mg STK-MED ONCE .ROUTE ; Start 11/23/19 at 14:09; Stop 11/23/19 at 14:09; Status DC Fentanyl Citrate (Fentanyl 2ml Vial) 100 mcg STK-MED ONCE .ROUTE ; Start 11/23/19 at 14:09; Stop 11/23/19 at 14:09; Status DC Midazolam HCl (Versed) 5 mg 1X ONCE IV Last administered on 11/23/19at 15:33; Start 11/23/19 at 15:15; Stop 11/23/19 at 15:30; Status DC Fentanyl Citrate (Fentanyl 2ml Vial) 100 mcg 1X ONCE IV Last administered on 11/23/19at 15:34; Start 11/23/19 at 15:15; Stop 11/23/19 at 15:30; Status DC Lidocaine HCl (Lidocaine 1% 20ml Vial) 20 ml 1X ONCE INJ ; Start 11/23/19 at 15:15; Stop 11/23/19 at 15:16; Status Cancel Iohexol (Omnipaque 240 Mg/ml) 50 ml 1X ONCE IJ Last administered on 11/23/19at 15:32; Start 11/23/19 at 15:15; Stop 11/23/19 at 15:30; Status DC Cefazolin Sodium (Ancef) 1 gm 1X ONCE IVP Last administered on 11/23/19at 15:33; Start 11/23/19 at 15:15; Stop 11/23/19 at 15:30; Status DC Lidocaine HCl 20 ml 1X ONCE IJ ; Start 11/23/19 at 15:45; Stop 11/23/19 at 15:46; Status DC Ondansetron HCl (Zofran) 4 mg PRN Q6HRS PRN IV NAUSEA/VOMITING; Start 11/27/19 at 07:00; Stop 11/27/19 at 19:00; Status DC Fentanyl Citrate (Fentanyl 2ml Vial) 25 mcg PRN Q5MIN PRN IV MILD PAIN 1-3; Start 11/27/19 at 07:00; Stop 11/27/19 at 19:00; Status DC Fentanyl Citrate (Fentanyl 2ml Vial) 50 mcg PRN Q5MIN PRN IV MODERATE TO SEVERE PAIN; Start 11/27/19 at 07:00; Stop 11/27/19 at 19:00; Status DC Morphine Sulfate (Morphine Sulfate) 1 mg PRN Q10MIN PRN IV SEVERE PAIN 7-10; Start 11/27/19 at 07:00; Stop 11/27/19 at 19:00; Status DC Ringer's Solution 1,000 ml @ 30 mls/hr Q24H IV ; Start 11/27/19 at 07:00; Stop 11/27/19 at 18:59; Status DC Lidocaine HCl (Xylocaine-Mpf 1% 2ml Vial) 2 ml PRN 1X PRN ID PRIOR TO IV START; Start 11/27/19 at 07:00; Stop 11/27/19 at 19:00; Status DC Hydromorphone HCl (Dilaudid) 0.5 mg PRN Q10MIN PRN IV SEV PAIN, Second choice; Start 11/27/19 at 07:00; Stop 11/27/19 at 19:00; Status DC Prochlorperazine Edisylate (Compazine) 5 mg PACU PRN PRN IV NAUSEA, MRX1; Start 11/27/19 at 07:00; Stop 11/27/19 at 19:00; Status DC Active Scripts Active Reported Colace (Docusate Sodium) 100 Mg Capsule 1 Cap PO BID [place] 5-325 Tablet (Acetaminophen/Hydrocodone Bitart) 1 Each Tablet 1 Tab PO Q4- 6HRS Ibuprofen 400 Mg Tablet 400 Mg PO PRN Q6HRS PRN Atorvastatin Calcium 20 Mg Tablet 1 Tab PO DAILY Aspirin 81 Mg Tab.chew 1 Tab PO DAILY Metformin Hcl 500 Mg Tablet 500 Mg PO BIDWMEALS Vitals/I & O Vital Sign - Last 24 Hours 12/02/19 12/02/19 12/02/19 12/02/19 15:00 19:00 20:30 23:00 Temp 97.6 97.3 98.4 97.6 97.3 98.4 Pulse 79 85 83 Resp 18 20 18 B/P (MAP) 107/78 (88) 113/77 (89) 119/77 (91) Pulse Ox 95 92 98 O2 Delivery Room Air Room Air Room Air Room Air 12/03/19 12/03/19 12/03/19 12/03/19 02:48 03:07 03:48 07:00 Temp 97.7 98.0 97.7 98.0 Pulse 84 67 Resp 20 18 18 B/P (MAP) 119/77 (91) 112/82 (92) Pulse Ox 96 95 O2 Delivery Room Air Room Air Room Air Room Air 12/03/19 12/03/19 12/03/19 07:26 11:00 11:41 Temp 98.0 98.0 Pulse 68 Resp 18 20 B/P (MAP) 110/80 (90) Pulse Ox 96 O2 Delivery Room Air Room Air O2 Flow Rate 2.0 Intake and Output 12/02/19 12/02/19 12/03/19 15:00 23:00 07:00 Intake Total 550 ml 250 ml Output Total 450 ml 200 ml Balance 550 ml -200 ml -200 ml KELLY RUSSO MD December 03, 2019 11:56
--- NOTE | 2019-12-03 14:35 | PDOC ---
Provider Note Provider Note SURG full consult to follow pt well known to me needs port will address in AM COLLINS MILAN MD December 03, 2019 14:35
[2019-12-03 15:00] VITALS: BP 112/86
[2019-12-03 19:00] VITALS: BP 108/63
[2019-12-03 23:00] VITALS: BP 98/61
[2019-12-04] VITALS (13 sets, daily range): BP systolic 100–123; BP diastolic 69–86
[2019-12-04] MEDS: MORPHINE SULFATE 4 MG/ML VIAL. IV PRN ×2 (03:22→06:33)
[2019-12-04 04:53] LABS: BASO # 0.1 x10^3/uL (0.0-0.2); BASO % 1 % (0-3); EOS # 0.1 x10^3/uL (0.0-0.7); EOS % 1 % (0-3); HEMATOCRIT 43.8 % (39.0-53.0); HEMOGLOBIN 14.6 g/dL (13.0-17.5); LYMPH # 0.9 x10^3/uL (1.0-4.8); LYMPH % 11 % (24-48); MEAN CORPUSCULAR HEMOGLOBIN 29 pg (25-35); MEAN CORPUSCULAR HGB CONC 33 g/dL (31-37); MEAN CORPUSCULAR VOLUME 87 fL (79-100); MONO # 0.6 x10^3/uL (0.0-1.1); MONO % 8 % (0-9); NEUT # 6.1 x10^3/uL (1.8-7.7); NEUT % 79 % (31-73); PLATELET COUNT 379 x10^3/uL (140-400); RED BLOOD COUNT 5.03 x10^6/uL (4.30-5.70); RED CELL DISTRIBUTION WIDTH 13.8 % (11.5-14.5); WHITE BLOOD COUNT 7.8 x10^3/uL (4.0-11.0)
[2019-12-04 04:59] LABS: PROTHROMBIN TIME PATIENT 14.2 SEC (11.7-14.0)
[2019-12-04 05:08] LABS: CALCIUM 9.1 mg/dL (8.5-10.1); CREATININE 0.7 mg/dL (0.7-1.3); GFR 117.5; POTASSIUM 4.5 mmol/L (3.5-5.1)
[2019-12-04] MEDS: INSULIN LISPRO 300 UNITS/3 ML VIAL. SQ SCH ×4 (07:30→21:00)
[2019-12-04] MEDS: ASPIRIN CHEWABLE 81 MG TABLET. PO SCH (08:00)
[2019-12-04] MEDS: DOCUSATE SODIUM 100 MG CAPSULE. PO SCH ×2 (08:32→21:00)
--- NOTE | 2019-12-04 11:21 | PDOC ---
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 Pathologic compression fracture at the L4 vertebral body. Osteolytic lesions at L4 and at L5, highly suspicious for osteolytic metastatic deposits with associated pathologic fracture and mild asymmetric right-sided loss of height at L4. The anterolateral aspect of the L5 vertebral body also demonstrates permeative osteolysis with cortical destruction, consistent with osteolytic metastatic deposit. Fluoroscopically guided biopsy, L4 done L4 kyphoplasty done DM2, non insulin dependent HLD, on statin therapy Pain secondary to bone mets Hypokalemia Hyponatremia Elevated LFTs hx of melanoma history of melanoma removed from the lower back 6 to 8 months hx of TBI PLAN Continue with current management port placement IP: Pt is COVID negative. 11/30 12/02 gen surg consult for port D/W RN Recommendations from oncologist are as follow Based on [id number] trial, results were published in article in NEJM (Five- Year Survival with Combined Nivolumab and Ipilimumab in Advanced Melanoma), patients with previously untreated advanced melanoma were assigned to receive one of the following regimens: nivolumab (at a dose of 1 mg per kilogram of body weight) plus ipilimumab (3 mg per kilogram) every 3 weeks for four doses, followed by nivolumab (3 mg per kilogram every 2 weeks); nivolumab (3 mg per kilogram every 2 weeks) plus ipilimumab-matched placebo; or ipilimumab (3 mg per kilogram every 3 weeks for four doses) plus nivolumab-matched placebo. At a minimum follow-up of 60 months, the median OS was more than 60.0 months (median not reached) in the failqmgyg-pxce-ivsybqjymt group and 36.9 months in the nivolumab group, as compared with 19.9 months in the ipilimumab group (HR for with nivolumab plus ipilimumab vs. ipilimumab, 0.52; HR for with nivolumab vs. ipilimumab, 0.63). OS at 5 years was 52% in the hnciaucdv-mknf-ooapdquegu group and 44% in the nivolumab group, as compared with 26% in the ipilimumab group. (Duarte et al, N Engl J Med 2019; 381:5002-6087.) CheckMate 511 trial, a phase phase IIIB/IV study which evaluated safety profile and efficacy of alternative dose regimen. The study met its primary end point, demonstrating a significantly lower incidence of treatment-related grade 3-5 adverse events with Opdivo 3 mg/kg/Yervoy 1 mg/kg versus Opdivo 1 mg/kg/Yervoy 3 mg/kg. Descriptive analyses showed that there were no meaningful differences between the groups for any efficacy end point (Ruth corona. peter, 09/06/18, [facility] [place]). Based on results of the above two studies, will plan to initiate treatment with Opdivo 3 mg/kg and Yervoy 1 mg/kg. Bone mets. - May benefit from Xgeva, pending dental evaluation. It would be important to obtain genetic evaluation on tumor with [facility] to assess for presence of targetable abnormalities (specifically BRAF mutation). The patient does not voice any social stressors. Plan 1. Opdivo 3 mg/Yervoy 1 mg q 3 weeks x 4 cycles, followed by Opdivo alone q 2-4 weeks will be started, if pathology confirms presence of recurrent melanoma. [facility]. 3. Xgeva q 4 weeks will be started, pending dental evaluation. Will discuss further on next visit. 4. Staging PET/CT, scheduled on 11/30/2019. 5. Port placement to be arranged while patient is admitted at [facility]. 6. Left axillary mass biopsy with IR, to be arranged while patient is admitted at [facility]. 7. Will request pathology from initial diagnosis of melanoma in 11/2018. 8. Follow-up via [facility] on 12/04/2019 to discuss PET/CT results, pathology, and further management. KRISTINA MEJIAS MD D/W [facility] // JAMIE ALLEN [phone] ONCOLOGY TO EXPLAIN TO DPOA 26 MIN pt exam, chart review, > 50% of time spent with exam, chart review, pt care coordination History of Present Illness History of Present Illness No acute events reported overnight, case discussed with nursing staff patient in no acute distress no complaints during my visit Discussed with the POA over the phone Vitals Vitals Vital Signs Date Time Temp Pulse Resp B/P (MAP) Pulse Ox O2 Delivery O2 Flow Rate FiO2 12/04/19 07:03 20 94 Room Air 12/04/19 07:00 98.2 101 112/74 (87) 98.2 12/04/19 06:33 2.0 Physical Exam General: Alert, Oriented X3, Cooperative, No acute distress Heart: Regular rate, Normal S1 Lungs: Clear Abdomen: Normal bowel sounds, Soft, No tenderness, No hepatosplenomegaly, No masses Extremities: No clubbing, No tenderness/swelling Skin: No rashes, No significant lesion Labs LABS Laboratory Tests Test 12/03/19 11:50 12/03/19 16:34 12/03/19 20:38 12/04/19 04:25 Glucose (Fingerstick) 116 mg/dL (70-99) 153 mg/dL (70-99) 111 mg/dL (70-99) White Blood Count 7.8 x10^3/uL (4.0-11.0) Red Blood Count 5.03 x10^6/uL (4.30-5.70) Hemoglobin 14.6 g/dL (13.0-17.5) Hematocrit 43.8 % (39.0-53.0) Mean Corpuscular Volume 87 fL (79-100) Mean Corpuscular Hemoglobin 29 pg (25-35) Mean Corpuscular Hemoglobin Concent 33 g/dL (31-37) Red Cell Distribution Width 13.8 % (11.5-14.5) Platelet Count 379 x10^3/uL (140-400) Neutrophils (%) (Auto) 79 % (31-73) Lymphocytes (%) (Auto) 11 % (24-48) Monocytes (%) (Auto) 8 % (0-9) Eosinophils (%) (Auto) 1 % (0-3) Basophils (%) (Auto) 1 % (0-3) Neutrophils # (Auto) 6.1 x10^3/uL (1.8-7.7) Lymphocytes # (Auto) 0.9 x10^3/uL (1.0-4.8) Monocytes # (Auto) 0.6 x10^3/uL (0.0-1.1) Eosinophils # (Auto) 0.1 x10^3/uL (0.0-0.7) Basophils # (Auto) 0.1 x10^3/uL (0.0-0.2) Prothrombin Time 14.2 SEC (11.7-14.0) Prothromb Time International Ratio 1.1 (0.8-1.1) Sodium Level 140 mmol/L (136-145) Potassium Level 4.5 mmol/L (3.5-5.1) Chloride Level 102 mmol/L (98-107) Carbon Dioxide Level 32 mmol/L (21-32) Anion Gap 6 (6-14) Blood Urea Nitrogen 25 mg/dL (8-26) Creatinine 0.7 mg/dL (0.7-1.3) Estimated GFR (Cockcroft-Gault) 117.5 Glucose Level 98 mg/dL (70-99) Calcium Level 9.1 mg/dL (8.5-10.1) Test 12/04/19 07:25 12/04/19 11:12 Glucose (Fingerstick) 110 mg/dL (70-99) 110 mg/dL (70-99) Assessment and Plan Assessmemt and Plan Problems Medical Problems: (1) Compression fracture of L4 vertebra Status: Acute (2) Low back pain Status: Acute (3) Metastatic neoplastic disease Status: Acute (4) Right flank pain Status: Acute Comment Review of Relevant I have reviewed the following items sylvia (where applicable) has been applied. Labs Laboratory Tests Test 12/02/19 11:54 12/02/19 16:45 12/02/19 20:28 12/03/19 07:37 Glucose (Fingerstick) 86 mg/dL (70-99) 122 mg/dL (70-99) 108 mg/dL (70-99) 88 mg/dL (70-99) Test 12/03/19 11:50 12/03/19 16:34 12/03/19 20:38 12/04/19 04:25 Glucose (Fingerstick) 116 mg/dL (70-99) 153 mg/dL (70-99) 111 mg/dL (70-99) White Blood Count 7.8 x10^3/uL (4.0-11.0) Red Blood Count 5.03 x10^6/uL (4.30-5.70) Hemoglobin 14.6 g/dL (13.0-17.5) Hematocrit 43.8 % (39.0-53.0) Mean Corpuscular Volume 87 fL (79-100) Mean Corpuscular Hemoglobin 29 pg (25-35) Mean Corpuscular Hemoglobin Concent 33 g/dL (31-37) Red Cell Distribution Width 13.8 % (11.5-14.5) Platelet Count 379 x10^3/uL (140-400) Neutrophils (%) (Auto) 79 % (31-73) Lymphocytes (%) (Auto) 11 % (24-48) Monocytes (%) (Auto) 8 % (0-9) Eosinophils (%) (Auto) 1 % (0-3) Basophils (%) (Auto) 1 % (0-3) Neutrophils # (Auto) 6.1 x10^3/uL (1.8-7.7) Lymphocytes # (Auto) 0.9 x10^3/uL (1.0-4.8) Monocytes # (Auto) 0.6 x10^3/uL (0.0-1.1) Eosinophils # (Auto) 0.1 x10^3/uL (0.0-0.7) Basophils # (Auto) 0.1 x10^3/uL (0.0-0.2) Prothrombin Time 14.2 SEC (11.7-14.0) Prothromb Time International Ratio 1.1 (0.8-1.1) Sodium Level 140 mmol/L (136-145) Potassium Level 4.5 mmol/L (3.5-5.1) Chloride Level 102 mmol/L (98-107) Carbon Dioxide Level 32 mmol/L (21-32) Anion Gap 6 (6-14) Blood Urea Nitrogen 25 mg/dL (8-26) Creatinine 0.7 mg/dL (0.7-1.3) Estimated GFR (Cockcroft-Gault) 117.5 Glucose Level 98 mg/dL (70-99) Calcium Level 9.1 mg/dL (8.5-10.1) Test 12/04/19 07:25 12/04/19 11:12 Glucose (Fingerstick) 110 mg/dL (70-99) 110 mg/dL (70-99) Laboratory Tests Test 12/03/19 11:50 12/03/19 16:34 12/03/19 20:38 12/04/19 04:25 Glucose (Fingerstick) 116 mg/dL (70-99) 153 mg/dL (70-99) 111 mg/dL (70-99) White Blood Count 7.8 x10^3/uL (4.0-11.0) Red Blood Count 5.03 x10^6/uL (4.30-5.70) Hemoglobin 14.6 g/dL (13.0-17.5) Hematocrit 43.8 % (39.0-53.0) Mean Corpuscular Volume 87 fL (79-100) Mean Corpuscular Hemoglobin 29 pg (25-35) Mean Corpuscular Hemoglobin Concent 33 g/dL (31-37) Red Cell Distribution Width 13.8 % (11.5-14.5) Platelet Count 379 x10^3/uL (140-400) Neutrophils (%) (Auto) 79 % (31-73) Lymphocytes (%) (Auto) 11 % (24-48) Monocytes (%) (Auto) 8 % (0-9) Eosinophils (%) (Auto) 1 % (0-3) Basophils (%) (Auto) 1 % (0-3) Neutrophils # (Auto) 6.1 x10^3/uL (1.8-7.7) Lymphocytes # (Auto) 0.9 x10^3/uL (1.0-4.8) Monocytes # (Auto) 0.6 x10^3/uL (0.0-1.1) Eosinophils # (Auto) 0.1 x10^3/uL (0.0-0.7) Basophils # (Auto) 0.1 x10^3/uL (0.0-0.2) Prothrombin Time 14.2 SEC (11.7-14.0) Prothromb Time International Ratio 1.1 (0.8-1.1) Sodium Level 140 mmol/L (136-145) Potassium Level 4.5 mmol/L (3.5-5.1) Chloride Level 102 mmol/L (98-107) Carbon Dioxide Level 32 mmol/L (21-32) Anion Gap 6 (6-14) Blood Urea Nitrogen 25 mg/dL (8-26) Creatinine 0.7 mg/dL (0.7-1.3) Estimated GFR (Cockcroft-Gault) 117.5 Glucose Level 98 mg/dL (70-99) Calcium Level 9.1 mg/dL (8.5-10.1) Test 12/04/19 07:25 12/04/19 11:12 Glucose (Fingerstick) 110 mg/dL (70-99) 110 mg/dL (70-99) Medications Current Medications Sodium Chloride 1,000 ml @ 1,000 mls/hr Q1H IV Last administered on 11/21/19 21:54; Start 11/21/19 at 21:30; Stop 11/21/19 at 22:29; Status DC Ondansetron HCl (Zofran) 4 mg 1X ONCE IVP Last administered on 11/21/19at 21:54; Start 11/21/19 at 21:30; Stop 11/21/19 at 21:31; Status DC Ketorolac Tromethamine (Toradol 30mg Vial) 30 mg 1X ONCE IVP Last administered on 11/21/19 21:55; Start 11/21/19 at 21:30; Stop 11/21/19 at 21:31; Status DC Ondansetron HCl (Zofran) 4 mg PRN Q8HRS PRN IV NAUSEA/VOMITING; Start 11/21/19 at 23:30; Stop 11/22/19 at 06:04; Status DC Morphine Sulfate (Morphine Sulfate) 4 mg PRN Q2HR PRN IV PAIN Last administered on 12/04/19at 06:33; Start 11/21/19 at 23:30 Ondansetron HCl (Zofran) 4 mg PRN Q4HRS PRN IV NAUSEA/VOMITING Last administered on 12/03/19at 07:54; Start 11/22/19 at 06:00 Aspirin (Aspirin Chewable) 81 mg DAILYWBKFT PO Last administered on 12/03/19at 07:57; Start 11/22/19 at 08:00 Atorvastatin Calcium (Lipitor) 20 mg HS PO ; Start 11/22/19 at 21:00; Stop 11/22/19 at 09:35; Status DC Docusate Sodium (Colace) 100 mg BID PO Last administered on 12/03/19at 07:53; Start 11/22/19 at 09:00 Acetaminophen/ Hydrocodone Bitart (Lortab 5/325) 1 tab PRN Q4HRS PRN PO MODERATE PAIN 4-6 Last administered on 12/03/19at 20:21; Start 11/22/19 at 06:00 Ibuprofen (Motrin) 400 mg PRN Q6HRS PRN PO INFLAMMATION Last administered on 12/03/19at 16:18; Start 11/22/19 at 06:00 Fentanyl (Duragesic 12mcg/ Hr Patch) 1 patch Q3DAYS TD Last administered on 12/03/19at 11:41; Start 11/22/19 at 09:00 Enoxaparin Sodium (Lovenox 40mg Syringe) 40 mg Q24H SQ Last administered on 11/22/19at 08:35; Start 11/22/19 at 10:00; Stop 11/22/19 at 17:03; Status DC Insulin Human Lispro (HumaLOG) 0-7 UNITS TIDACHC SQ Last administered on 12/03/19at 16:45; Start 11/22/19 at 07:30 Dextrose (Dextrose 50%-Water Syringe) 12.5 gm PRN Q15MIN PRN IV SEE COMMENTS; Start 11/22/19 at 06:00 Potassium Chloride (Klor-Con) 40 meq 1X ONCE PO Last administered on 11/22/19at 16:12; Start 11/22/19 at 14:00; Stop 11/22/19 at 14:01; Status DC Iohexol (Omnipaque 240 Mg/ml) 50 ml STK-MED ONCE .ROUTE ; Start 11/23/19 at 11:28; Stop 11/23/19 at 11:28; Status DC Lidocaine HCl 20 ml STK-MED ONCE .ROUTE ; Start 11/23/19 at 11:28; Stop 11/23/19 at 11:28; Status DC Cefazolin Sodium (Ancef) 1 gm STK-MED ONCE IVP ; Start 11/23/19 at 14:09; Stop 11/23/19 at 14:09; Status DC Midazolam HCl (Versed) 5 mg STK-MED ONCE .ROUTE ; Start 11/23/19 at 14:09; Stop 11/23/19 at 14:09; Status DC Fentanyl Citrate (Fentanyl 2ml Vial) 100 mcg STK-MED ONCE .ROUTE ; Start 11/23/19 at 14:09; Stop 11/23/19 at 14:09; Status DC Midazolam HCl (Versed) 5 mg 1X ONCE IV Last administered on 11/23/19at 15:33; Start 11/23/19 at 15:15; Stop 11/23/19 at 15:30; Status DC Fentanyl Citrate (Fentanyl 2ml Vial) 100 mcg 1X ONCE IV Last administered on 11/23/19at 15:34; Start 11/23/19 at 15:15; Stop 11/23/19 at 15:30; Status DC Lidocaine HCl (Lidocaine 1% 20ml Vial) 20 ml 1X ONCE INJ ; Start 11/23/19 at 15:15; Stop 11/23/19 at 15:16; Status Cancel Iohexol (Omnipaque 240 Mg/ml) 50 ml 1X ONCE IJ Last administered on 11/23/19at 15:32; Start 11/23/19 at 15:15; Stop 11/23/19 at 15:30; Status DC Cefazolin Sodium (Ancef) 1 gm 1X ONCE IVP Last administered on 11/23/19at 15:33; Start 11/23/19 at 15:15; Stop 11/23/19 at 15:30; Status DC Lidocaine HCl 20 ml 1X ONCE IJ ; Start 11/23/19 at 15:45; Stop 11/23/19 at 15:46; Status DC Ondansetron HCl (Zofran) 4 mg PRN Q6HRS PRN IV NAUSEA/VOMITING; Start 11/27/19 at 07:00; Stop 11/27/19 at 19:00; Status DC Fentanyl Citrate (Fentanyl 2ml Vial) 25 mcg PRN Q5MIN PRN IV MILD PAIN 1-3; Start 11/27/19 at 07:00; Stop 11/27/19 at 19:00; Status DC Fentanyl Citrate (Fentanyl 2ml Vial) 50 mcg PRN Q5MIN PRN IV MODERATE TO SEVERE PAIN; Start 11/27/19 at 07:00; Stop 11/27/19 at 19:00; Status DC Morphine Sulfate (Morphine Sulfate) 1 mg PRN Q10MIN PRN IV SEVERE PAIN 7-10; Start 11/27/19 at 07:00; Stop 11/27/19 at 19:00; Status DC Ringer's Solution 1,000 ml @ 30 mls/hr Q24H IV ; Start 11/27/19 at 07:00; Stop 11/27/19 at 18:59; Status DC Lidocaine HCl (Xylocaine-Mpf 1% 2ml Vial) 2 ml PRN 1X PRN ID PRIOR TO IV START; Start 11/27/19 at 07:00; Stop 11/27/19 at 19:00; Status DC Hydromorphone HCl (Dilaudid) 0.5 mg PRN Q10MIN PRN IV SEV PAIN, Second choice; Start 11/27/19 at 07:00; Stop 11/27/19 at 19:00; Status DC Prochlorperazine Edisylate (Compazine) 5 mg PACU PRN PRN IV NAUSEA, MRX1; Start 11/27/19 at 07:00; Stop 11/27/19 at 19:00; Status DC Active Scripts Active Reported Colace (Docusate Sodium) 100 Mg Capsule 1 Cap PO BID Lilly 5-325 Tablet (Acetaminophen/Hydrocodone Bitart) 1 Each Tablet 1 Tab PO Q4- 6HRS Ibuprofen 400 Mg Tablet 400 Mg PO PRN Q6HRS PRN Atorvastatin Calcium 20 Mg Tablet 1 Tab PO DAILY Aspirin 81 Mg Tab.chew 1 Tab PO DAILY Metformin Hcl 500 Mg Tablet 500 Mg PO BIDWMEALS Vitals/I & O Vital Sign - Last 24 Hours 12/03/19 12/03/19 12/03/19 12/03/19 11:41 15:00 15:00 19:00 Temp 98.1 98.0 98.1 98.0 Pulse 72 69 Resp 20 20 18 18 B/P (MAP) 112/86 (95) 108/63 (78) Pulse Ox 98 94 O2 Delivery Room Air Room Air 12/03/19 12/03/19 12/03/19 12/03/19 20:00 20:21 21:21 23:00 Temp 98.4 98.4 Pulse 77 Resp 20 20 18 B/P (MAP) 98/61 (73) Pulse Ox 94 94 94 O2 Delivery Room Air Room Air Room Air Room Air O2 Flow Rate 2.0 12/04/19 12/04/19 12/04/19 12/04/19 03:00 03:22 03:52 06:33 Temp 98.9 98.9 Pulse 91 Resp 18 20 20 20 B/P (MAP) 115/83 (94) Pulse Ox 93 94 94 94 O2 Delivery Room Air Room Air Room Air Room Air O2 Flow Rate 2.0 12/04/19 12/04/19 07:00 07:03 Temp 98.2 98.2 Pulse 101 Resp 16 20 B/P (MAP) 112/74 (87) Pulse Ox 90 94 O2 Delivery Room Air Room Air Intake and Output 12/03/19 12/03/19 12/04/19 15:00 23:00 07:00 Intake Total 360 ml 0 ml Output Total 150 ml 300 ml Balance 360 ml -150 ml -300 ml KELLY RUSSO MD December 04, 2019 11:21
[2019-12-04] MEDS ORDERED: IV RINGERS,LACTATED 1000ML 1,000 ML IV SCH (12:13)
[2019-12-04] MEDS ORDERED: ONDANSETRON PF 4 MG/2 ML VIAL. IVP PRN (12:15)
[2019-12-04] MEDS ORDERED: MORPHINE SULFATE 2 MG/ML VIAL. IVP PRN (12:15)
[2019-12-04] MEDS ORDERED: HYDROmorphone 2 MG/ML VIAL IVP PRN (12:15)
[2019-12-04] MEDS ORDERED: LIDOCAINE 1% PF 2 ML VIAL. ID PRN (12:15)
[2019-12-04] MEDS ORDERED: fentaNYL PF VIAL 100 MCG/2 ML VIAL IVP PRN ×2 (12:15)
[2019-12-04] MEDS ORDERED: PROCHLORPERAZINE 10 MG/2 ML VIAL. IVP PRN (12:15)
[2019-12-04] MEDS ORDERED: LIDOCAINE 1%/EPI 1:100,000 20 ML VIAL. ONE (12:37)
[2019-12-04] MEDS ORDERED: ceFAZolin SODIUM IV Push 1 GM VIAL. IVP ONE ×2 (12:50→13:30)
[2019-12-04] MEDS ORDERED: LIDOCAINE 1%/EPI 1:100,000 20 ML VIAL. INJ ONE (13:45)
[2019-12-04] MEDS: HYDROcodone/APAP 5/325MG 1 TAB TABLET PO PRN (15:57)
[2019-12-04] MEDS: IBUPROFEN 400 MG TABLET. PO PRN (22:37)
[2019-12-05] MEDS: INSULIN LISPRO 300 UNITS/3 ML VIAL. SQ SCH ×4 (07:30→21:00)
--- NOTE | 2019-12-05 08:17 | RAD ---
Procedure: Ultrasound and fluoroscopically guided placement of right internal jugular power port.. 12/05/2019 6:13 AM Clinical Indication: Chemotherapy access Sedation: Conscious sedation was administered for 30 minutes. The patient was monitored by a qualified independent observer throughout the time of sedation. Please refer to the medical record for exact doses of medications utilized to achieve moderate sedation. Fluoroscopy time: 0.9 minutes Dose area product: 2 Gycm2 Consent: The procedure was explained in its entirety to the patient or the patients designated plastic products sales representative by a member of the treatment team, including a discussion of the risks, benefits and commonly accepted alternatives to the procedure, as well as the expected consequences of no therapy whatsoever. Discussion of the risks included, but was not limited to, those that are most frequent and those that are rare but possibly severe or life-threatening, as well as the possibility of unforeseen complications. Technique and Findings: All elements of maximal sterile barrier technique including the use of a cap, mask, sterile gown, sterile gloves, large sterile sheet, appropriate hand hygiene, and 2% chlorhexidine for cutaneous antisepsis (or acceptable alternative antiseptic per current guidelines) were followed for this procedure. Following informed consent, and a timeout procedure, the patient was prepped and draped in the usual sterile fashion. Ultrasound interrogation of the right neck revealed patency and compressibility of the right internal jugular vein. A 21-gauge micropuncture was then used to gain access to this vein under ultrasound guidance. A hard copy ultrasound image was recorded. The needle was exchanged over a wire for a sheath. A 1 inch incision was made several centimeters inferior to the venotomy site. A catheter was tunneled from this site dermatotomy site in the neck. Catheter was advanced through peel-away sheath such that its tip was in the proximal right atrium with the patient supine. The catheter was trimmed to length and connected to the port reservoir. The port was found to flush and aspirate normally. The wound was closed in layers using 4-0 Vicryl suture. Sterile dressings were applied. Impression: Successful ultrasound and fluoroscopically guided placement of a right internal jugular PowerPort
[2019-12-05] MEDS: ASPIRIN CHEWABLE 81 MG TABLET. PO SCH (08:40)
[2019-12-05] MEDS: DOCUSATE SODIUM 100 MG CAPSULE. PO SCH ×2 (08:40→21:00)
--- NOTE | 2019-12-05 09:58 | PDOC ---
SURGICAL PROGRESS NOTE Subjective Pt without new c/o Vital Signs Vital Signs Date Time Temp Pulse Resp B/P (MAP) Pulse Ox O2 Delivery O2 Flow Rate FiO2 12/05/19 08:00 Room Air 2.0 12/04/19 23:16 97.5 81 16 123/86 (98) 95 97.5 I&O Intake and Output 12/05/19 07:00 Intake Total 480 ml Output Total 855 ml Balance -375 ml Intake Oral 480 ml Output Urine Total 850 ml Estimated Blood Loss 5 ml # Voids 102 General: Alert, Cooperative, No acute distress HEENT: Other (port in place) Labs Laboratory Tests Test 12/03/19 11:50 12/03/19 16:34 12/03/19 20:38 12/04/19 04:25 Glucose (Fingerstick) 116 mg/dL (70-99) 153 mg/dL (70-99) 111 mg/dL (70-99) White Blood Count 7.8 x10^3/uL (4.0-11.0) Red Blood Count 5.03 x10^6/uL (4.30-5.70) Hemoglobin 14.6 g/dL (13.0-17.5) Hematocrit 43.8 % (39.0-53.0) Mean Corpuscular Volume 87 fL (79-100) Mean Corpuscular Hemoglobin 29 pg (25-35) Mean Corpuscular Hemoglobin Concent 33 g/dL (31-37) Red Cell Distribution Width 13.8 % (11.5-14.5) Platelet Count 379 x10^3/uL (140-400) Neutrophils (%) (Auto) 79 % (31-73) Lymphocytes (%) (Auto) 11 % (24-48) Monocytes (%) (Auto) 8 % (0-9) Eosinophils (%) (Auto) 1 % (0-3) Basophils (%) (Auto) 1 % (0-3) Neutrophils # (Auto) 6.1 x10^3/uL (1.8-7.7) Lymphocytes # (Auto) 0.9 x10^3/uL (1.0-4.8) Monocytes # (Auto) 0.6 x10^3/uL (0.0-1.1) Eosinophils # (Auto) 0.1 x10^3/uL (0.0-0.7) Basophils # (Auto) 0.1 x10^3/uL (0.0-0.2) Prothrombin Time 14.2 SEC (11.7-14.0) Prothromb Time International Ratio 1.1 (0.8-1.1) Sodium Level 140 mmol/L (136-145) Potassium Level 4.5 mmol/L (3.5-5.1) Chloride Level 102 mmol/L (98-107) Carbon Dioxide Level 32 mmol/L (21-32) Anion Gap 6 (6-14) Blood Urea Nitrogen 25 mg/dL (8-26) Creatinine 0.7 mg/dL (0.7-1.3) Estimated GFR (Cockcroft-Gault) 117.5 Glucose Level 98 mg/dL (70-99) Calcium Level 9.1 mg/dL (8.5-10.1) Test 12/04/19 07:25 12/04/19 11:12 12/04/19 16:41 12/04/19 20:57 Glucose (Fingerstick) 110 mg/dL (70-99) 110 mg/dL (70-99) 175 mg/dL (70-99) 148 mg/dL (70-99) Test 12/05/19 08:04 Glucose (Fingerstick) 109 mg/dL (70-99) Laboratory Tests Test 12/04/19 11:12 12/04/19 16:41 12/04/19 20:57 12/05/19 08:04 Glucose (Fingerstick) 110 mg/dL (70-99) 175 mg/dL (70-99) 148 mg/dL (70-99) 109 mg/dL (70-99) Problem List Problems Medical Problems: (1) Compression fracture of L4 vertebra Status: Acute (2) Low back pain Status: Acute (3) Metastatic neoplastic disease Status: Acute (4) Right flank pain Status: Acute Assessment/Plan myeloma port performed by IR yesterday doing well will sign off, but please call for questions. SUSI DOWNEY MD December 05, 2019 09:58
--- NOTE | 2019-12-05 10:56 | PDOC ---
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 Pathologic compression fracture at the L4 vertebral body. Osteolytic lesions at L4 and at L5, highly suspicious for osteolytic metastatic deposits with associated pathologic fracture and mild asymmetric right-sided loss of height at L4. The anterolateral aspect of the L5 vertebral body also demonstrates permeative osteolysis with cortical destruction, consistent with osteolytic metastatic deposit. Fluoroscopically guided biopsy, L4 done L4 kyphoplasty done DM2, non insulin dependent HLD, on statin therapy Pain secondary to bone mets Hypokalemia Hyponatremia Elevated LFTs hx of melanoma history of melanoma removed from the lower back 6 to 8 months hx of TBI PLAN Continue with current management port placement planning [facility] ONCOLOGY F/U arranged IP: Pt is COVID negative. 11/30 12/02 gen surg consult for port D/W RN home soon home today if ok with oncology Recommendations from oncologist are as follow Based on [id number] trial, results were published in article in NEJM (Five- Year Survival with Combined Nivolumab and Ipilimumab in Advanced Melanoma), patients with previously untreated advanced melanoma were assigned to receive one of the following regimens: nivolumab (at a dose of 1 mg per kilogram of body weight) plus ipilimumab (3 mg per kilogram) every 3 weeks for four doses, followed by nivolumab (3 mg per kilogram every 2 weeks); nivolumab (3 mg per kilogram every 2 weeks) plus ipilimumab-matched placebo; or ipilimumab (3 mg per kilogram every 3 weeks for four doses) plus nivolumab-matched placebo. At a minimum follow-up of 60 months, the median OS was more than 60.0 months (median not reached) in the mmbnixbza-gqsn-kxkulkntlm group and 36.9 months in the nivolumab group, as compared with 19.9 months in the ipilimumab group (HR for with nivolumab plus ipilimumab vs. ipilimumab, 0.52; HR for with nivolumab vs. ipilimumab, 0.63). OS at 5 years was 52% in the skcktbhzy-xogd-rqmywchiqw group and 44% in the nivolumab group, as compared with 26% in the ipilimumab group. (Duarte et al, N Engl J Med 2019; 381:2947-9997.) CheckMate 511 trial, a phase phase IIIB/IV study which evaluated safety profile and efficacy of alternative dose regimen. The study met its primary end point, demonstrating a significantly lower incidence of treatment-related grade 3-5 adverse events with Opdivo 3 mg/kg/Yervoy 1 mg/kg versus Opdivo 1 mg/kg/Yervoy 3 mg/kg. Descriptive analyses showed that there were no meaningful differences between the groups for any efficacy end point (Ruth corona. peter, 09/06/18, [facility]). Based on results of the above two studies, will plan to initiate treatment with Opdivo 3 mg/kg and Yervoy 1 mg/kg. Bone mets. - May benefit from Xgeva, pending dental evaluation. It would be important to obtain genetic evaluation on tumor with [facility] to assess for presence of targetable abnormalities (specifically BRAF mutation). The patient does not voice any social stressors. Plan 1. Opdivo 3 mg/Yervoy 1 mg q 3 weeks x 4 cycles, followed by Opdivo alone q 2-4 weeks will be started, if pathology confirms presence of recurrent melanoma. 2. [facility] on 11/2018 tumor specimen, [facility]. 3. Xgeva q 4 weeks will be started, pending dental evaluation. Will discuss further on next visit. 4. Staging PET/CT, scheduled on 11/30/2019. 5. Port placement to be arranged while patient is admitted at [place]. 6. Left axillary mass biopsy with IR, to be arranged while patient is admitted at [place]. 7. Will request pathology from initial diagnosis of melanoma in 11/2018. 8. Follow-up via [facility] on 12/04/2019 to discuss PET/CT results, pathology, and further management. KRISTINA MEJIAS MD D/W ETHEL // JAMIE ALLEN [phone] ONCOLOGY TO EXPLAIN TO DPOA 26 MIN pt exam, chart review, > 50% of time spent with exam, chart review, pt care coordination History of Present Illness History of Present Illness No acute events reported overnight, case discussed with nursing staff patient in no acute distress no complaints during my visit Discussed with the POA over the phone Vitals Vitals Vital Signs Date Time Temp Pulse Resp B/P (MAP) Pulse Ox O2 Delivery O2 Flow Rate FiO2 12/05/19 08:00 Room Air 2.0 12/04/19 23:16 97.5 81 16 123/86 (98) 95 97.5 Physical Exam General: Alert, Cooperative, No acute distress Heart: Regular rate, Normal S1 Lungs: Clear Abdomen: Normal bowel sounds, Soft, No tenderness, No hepatosplenomegaly, No masses Extremities: No clubbing, No tenderness/swelling Skin: No rashes, No significant lesion Labs LABS Laboratory Tests Test 12/04/19 11:12 12/04/19 16:41 12/04/19 20:57 12/05/19 08:04 Glucose (Fingerstick) 110 mg/dL (70-99) 175 mg/dL (70-99) 148 mg/dL (70-99) 109 mg/dL (70-99) Assessment and Plan Assessmemt and Plan Problems Medical Problems: (1) Compression fracture of L4 vertebra Status: Acute (2) Low back pain Status: Acute (3) Metastatic neoplastic disease Status: Acute (4) Right flank pain Status: Acute Comment Review of Relevant I have reviewed the following items sylvia (where applicable) has been applied. Labs Laboratory Tests Test 12/03/19 11:50 12/03/19 16:34 12/03/19 20:38 12/04/19 04:25 Glucose (Fingerstick) 116 mg/dL (70-99) 153 mg/dL (70-99) 111 mg/dL (70-99) White Blood Count 7.8 x10^3/uL (4.0-11.0) Red Blood Count 5.03 x10^6/uL (4.30-5.70) Hemoglobin 14.6 g/dL (13.0-17.5) Hematocrit 43.8 % (39.0-53.0) Mean Corpuscular Volume 87 fL (79-100) Mean Corpuscular Hemoglobin 29 pg (25-35) Mean Corpuscular Hemoglobin Concent 33 g/dL (31-37) Red Cell Distribution Width 13.8 % (11.5-14.5) Platelet Count 379 x10^3/uL (140-400) Neutrophils (%) (Auto) 79 % (31-73) Lymphocytes (%) (Auto) 11 % (24-48) Monocytes (%) (Auto) 8 % (0-9) Eosinophils (%) (Auto) 1 % (0-3) Basophils (%) (Auto) 1 % (0-3) Neutrophils # (Auto) 6.1 x10^3/uL (1.8-7.7) Lymphocytes # (Auto) 0.9 x10^3/uL (1.0-4.8) Monocytes # (Auto) 0.6 x10^3/uL (0.0-1.1) Eosinophils # (Auto) 0.1 x10^3/uL (0.0-0.7) Basophils # (Auto) 0.1 x10^3/uL (0.0-0.2) Prothrombin Time 14.2 SEC (11.7-14.0) Prothromb Time International Ratio 1.1 (0.8-1.1) Sodium Level 140 mmol/L (136-145) Potassium Level 4.5 mmol/L (3.5-5.1) Chloride Level 102 mmol/L (98-107) Carbon Dioxide Level 32 mmol/L (21-32) Anion Gap 6 (6-14) Blood Urea Nitrogen 25 mg/dL (8-26) Creatinine 0.7 mg/dL (0.7-1.3) Estimated GFR (Cockcroft-Gault) 117.5 Glucose Level 98 mg/dL (70-99) Calcium Level 9.1 mg/dL (8.5-10.1) Test 12/04/19 07:25 12/04/19 11:12 12/04/19 16:41 12/04/19 20:57 Glucose (Fingerstick) 110 mg/dL (70-99) 110 mg/dL (70-99) 175 mg/dL (70-99) 148 mg/dL (70-99) Test 12/05/19 08:04 Glucose (Fingerstick) 109 mg/dL (70-99) Laboratory Tests Test 12/04/19 11:12 12/04/19 16:41 12/04/19 20:57 12/05/19 08:04 Glucose (Fingerstick) 110 mg/dL (70-99) 175 mg/dL (70-99) 148 mg/dL (70-99) 109 mg/dL (70-99) Medications Current Medications Sodium Chloride 1,000 ml @ 1,000 mls/hr Q1H IV Last administered on 11/21/19at 21:54; Start 11/21/19 at 21:30; Stop 11/21/19 at 22:29; Status DC Ondansetron HCl (Zofran) 4 mg 1X ONCE IVP Last administered on 11/21/19at 21:54; Start 11/21/19 at 21:30; Stop 11/21/19 at 21:31; Status DC Ketorolac Tromethamine (Toradol 30mg Vial) 30 mg 1X ONCE IVP Last administered on 11/21/19at 21:55; Start 11/21/19 at 21:30; Stop 11/21/19 at 21:31; Status DC Ondansetron HCl (Zofran) 4 mg PRN Q8HRS PRN IV NAUSEA/VOMITING; Start 11/21/19 at 23:30; Stop 11/22/19 at 06:04; Status DC Morphine Sulfate (Morphine Sulfate) 4 mg PRN Q2HR PRN IV PAIN Last administered on 12/04/19at 06:33; Start 11/21/19 at 23:30 Ondansetron HCl (Zofran) 4 mg PRN Q4HRS PRN IV NAUSEA/VOMITING Last administered on 12/03/19at 07:54; Start 11/22/19 at 06:00 Aspirin (Aspirin Chewable) 81 mg DAILYWBKFT PO Last administered on 12/05/19at 08:40; Start 11/22/19 at 08:00 Atorvastatin Calcium (Lipitor) 20 mg HS PO ; Start 11/22/19 at 21:00; Stop 11/22/19 at 09:35; Status DC Docusate Sodium (Colace) 100 mg BID PO Last administered on 12/05/19at 08:40; Start 11/22/19 at 09:00 Acetaminophen/ Hydrocodone Bitart (Lortab 5/325) 1 tab PRN Q4HRS PRN PO MODERATE PAIN 4-6 Last administered on 12/04/19at 15:57; Start 11/22/19 at 06:00 Ibuprofen (Motrin) 400 mg PRN Q6HRS PRN PO INFLAMMATION Last administered on 12/04/19at 22:37; Start 11/22/19 at 06:00 Fentanyl (Duragesic 12mcg/ Hr Patch) 1 patch Q3DAYS TD Last administered on 12/03/19at 11:41; Start 11/22/19 at 09:00 Enoxaparin Sodium (Lovenox 40mg Syringe) 40 mg Q24H SQ Last administered on 11/22/19at 08:35; Start 11/22/19 at 10:00; Stop 11/22/19 at 17:03; Status DC Insulin Human Lispro (HumaLOG) 0-7 UNITS TIDACHC SQ Last administered on 12/03/19at 16:45; Start 11/22/19 at 07:30 Dextrose (Dextrose 50%-Water Syringe) 12.5 gm PRN Q15MIN PRN IV SEE COMMENTS; Start 11/22/19 at 06:00 Potassium Chloride (Klor-Con) 40 meq 1X ONCE PO Last administered on 11/22/19at 16:12; Start 11/22/19 at 14:00; Stop 11/22/19 at 14:01; Status DC Iohexol (Omnipaque 240 Mg/ml) 50 ml STK-MED ONCE .ROUTE ; Start 11/23/19 at 11:28; Stop 11/23/19 at 11:28; Status DC Lidocaine HCl 20 ml STK-MED ONCE .ROUTE ; Start 11/23/19 at 11:28; Stop 11/23/19 at 11:28; Status DC Cefazolin Sodium (Ancef) 1 gm STK-MED ONCE IVP ; Start 11/23/19 at 14:09; Stop 11/23/19 at 14:09; Status DC Midazolam HCl (Versed) 5 mg STK-MED ONCE .ROUTE ; Start 11/23/19 at 14:09; Stop 11/23/19 at 14:09; Status DC Fentanyl Citrate (Fentanyl 2ml Vial) 100 mcg STK-MED ONCE .ROUTE ; Start 11/23/19 at 14:09; Stop 11/23/19 at 14:09; Status DC Midazolam HCl (Versed) 5 mg 1X ONCE IV Last administered on 11/23/19at 15:33; Start 11/23/19 at 15:15; Stop 11/23/19 at 15:30; Status DC Fentanyl Citrate (Fentanyl 2ml Vial) 100 mcg 1X ONCE IV Last administered on 11/23/19at 15:34; Start 11/23/19 at 15:15; Stop 11/23/19 at 15:30; Status DC Lidocaine HCl (Lidocaine 1% 20ml Vial) 20 ml 1X ONCE INJ ; Start 11/23/19 at 15:15; Stop 11/23/19 at 15:16; Status Cancel Iohexol (Omnipaque 240 Mg/ml) 50 ml 1X ONCE IJ Last administered on 11/23/19at 15:32; Start 11/23/19 at 15:15; Stop 11/23/19 at 15:30; Status DC Cefazolin Sodium (Ancef) 1 gm 1X ONCE IVP Last administered on 11/23/19at 15:33; Start 11/23/19 at 15:15; Stop 11/23/19 at 15:30; Status DC Lidocaine HCl 20 ml 1X ONCE IJ ; Start 11/23/19 at 15:45; Stop 11/23/19 at 15:4 6; Status DC Ondansetron HCl (Zofran) 4 mg PRN Q6HRS PRN IV NAUSEA/VOMITING; Start 11/27/19 at 07:00; Stop 11/27/19 at 19:00; Status DC Fentanyl Citrate (Fentanyl 2ml Vial) 25 mcg PRN Q5MIN PRN IV MILD PAIN 1-3; Start 11/27/19 at 07:00; Stop 11/27/19 at 19:00; Status DC Fentanyl Citrate (Fentanyl 2ml Vial) 50 mcg PRN Q5MIN PRN IV MODERATE TO SEVERE PAIN; Start 11/27/19 at 07:00; Stop 11/27/19 at 19:00; Status DC Morphine Sulfate (Morphine Sulfate) 1 mg PRN Q10MIN PRN IV SEVERE PAIN 7-10; Start 11/27/19 at 07:00; Stop 11/27/19 at 19:00; Status DC Ringer's Solution 1,000 ml @ 30 mls/hr Q24H IV ; Start 11/27/19 at 07:00; Stop 11/27/19 at 18:59; Status DC Lidocaine HCl (Xylocaine-Mpf 1% 2ml Vial) 2 ml PRN 1X PRN ID PRIOR TO IV START; Start 11/27/19 at 07:00; Stop 11/27/19 at 19:00; Status DC Hydromorphone HCl (Dilaudid) 0.5 mg PRN Q10MIN PRN IV SEV PAIN, Second choice; Start 11/27/19 at 07:00; Stop 11/27/19 at 19:00; Status DC Prochlorperazine Edisylate (Compazine) 5 mg PACU PRN PRN IV NAUSEA, MRX1; Start 11/27/19 at 07:00; Stop 11/27/19 at 19:00; Status DC Ondansetron HCl (Zofran) 4 mg PRN Q6HRS PRN IVP NAUSEA/VOMITING; Start 12/04/19 at 12:15; Stop 12/04/19 at 15:59; Status DC Fentanyl Citrate (Fentanyl 2ml Vial) 25 mcg PRN Q5MIN PRN IVP MILD PAIN 1-3; Start 12/04/19 at 12:15; Stop 12/04/19 at 15:59; Status DC Fentanyl Citrate (Fentanyl 2ml Vial) 50 mcg PRN Q5MIN PRN IVP MODERATE TO SEVERE PAIN; Start 12/04/19 at 12:15; Stop 12/04/19 at 15:59; Status DC Morphine Sulfate (Morphine Sulfate) 1 mg PRN Q10MIN PRN IVP SEVERE PAIN 7-10; Start 12/04/19 at 12:15; Stop 12/04/19 at 15:59; Status DC Ringer's Solution 1,000 ml @ 30 mls/hr Q24H IV ; Start 12/04/19 at 12:13; Stop 12/04/19 at 15:59; Status DC Lidocaine HCl (Xylocaine-Mpf 1% 2ml Vial) 2 ml 1X PRN PRN ID IV START; Start 12/04/19 at 12:15; Stop 12/04/19 at 15:59; Status DC Hydromorphone HCl (Dilaudid) 0.5 mg PRN Q10MIN PRN IVP SEV PAIN, Second choice; Start 12/04/19 at 12:15; Stop 12/04/19 at 15:59; Status DC Prochlorperazine Edisylate (Compazine) 5 mg PACU PRN PRN IVP NAUSEA, MRX1; Start 12/04/19 at 12:15; Stop 12/04/19 at 15:59; Status DC Lidocaine/ Epinephrine (LIDOCAINE 1%-EPI 1:100,000 Multi-Dose) 20 ml STK-MED ONCE .ROUTE ; Start 12/04/19 at 12:37; Stop 12/04/19 at 12:38; Status DC Cefazolin Sodium (Ancef) 1 gm STK-MED ONCE IVP ; Start 12/04/19 at 12:50; Stop 12/04/19 at 12:50; Status DC Cefazolin Sodium (Ancef) 1 gm 1X ONCE IVP Last administered on 12/04/19at 13:41; Start 12/04/19 at 13:30; Stop 12/04/19 at 13:31; Status DC Lidocaine/ Epinephrine (LIDOCAINE 1%-EPI 1:100,000 Multi-Dose) 10 ml 1X ONCE INJ Last administered on 12/04/19at 13:41; Start 12/04/19 at 13:45; Stop 12/04/19 at 13:46; Status DC Active Scripts Active Reported Colace (Docusate Sodium) 100 Mg Capsule 1 Cap PO BID Hoyt 5-325 Tablet (Acetaminophen/Hydrocodone Bitart) 1 Each Tablet 1 Tab PO Q4- 6HRS Ibuprofen 400 Mg Tablet 400 Mg PO PRN Q6HRS PRN Atorvastatin Calcium 20 Mg Tablet 1 Tab PO DAILY Aspirin 81 Mg Tab.chew 1 Tab PO DAILY Metformin Hcl 500 Mg Tablet 500 Mg PO BIDWMEALS Vitals/I & O Vital Sign - Last 24 Hours 12/04/19 12/04/19 12/04/19 12/04/19 11:00 13:53 14:10 14:27 Temp 98.0 98.0 98.4 98.0 98.0 98.4 Pulse 103 100 99 97 Resp 18 15 15 B/P (MAP) 114/82 (93) 119/79 114/74 118/71 (87) Pulse Ox 91 97 93 92 O2 Delivery Room Air Room Air Room Air Nasal Cannula O2 Flow Rate 2.0 2.0 12/04/19 12/04/19 12/04/19 12/04/19 14:43 14:57 15:12 15:27 Pulse 100 105 105 B/P (MAP) 109/69 (82) 114/73 (87) 114/83 (93) 120/77 (91) Pulse Ox 92 91 87 O2 Delivery Nasal Cannula Nasal Cannula Nasal Cannula O2 Flow Rate 2.0 2.0 2.0 12/04/19 12/04/19 12/04/19 12/04/19 15:57 15:57 16:57 17:57 Pulse 93 92 85 B/P (MAP) 100/69 (79) 110/73 (85) 111/83 (92) Pulse Ox 86 91 O2 Delivery Room Air Nasal Cannula Nasal Cannula O2 Flow Rate 2.0 2.0 12/04/19 12/04/19 12/04/19 12/05/19 19:30 22:30 23:16 08:00 Temp 98.1 97.5 98.1 97.5 Pulse 91 81 Resp 18 16 B/P (MAP) 106/78 (87) 123/86 (98) Pulse Ox 91 95 O2 Delivery Room Air Room Air Room Air Room Air O2 Flow Rate 2.0 Intake and Output 12/04/19 12/04/19 12/05/19 15:00 23:00 07:00 Intake Total 480 ml Output Total 305 ml 300 ml 250 ml Balance -305 ml -300 ml 230 ml KELLY RUSSO MD December 05, 2019 10:56
[2019-12-05 11:07] VITALS: BP 135/91
[2019-12-05] MEDS: IBUPROFEN 400 MG TABLET. PO PRN ×2 (12:49→16:49)
[2019-12-05 15:00] VITALS: BP 100/65
--- NOTE | 2019-12-05 17:17 | NUR ---
call oncology--Esthela at [phone] regarding dismissal. it is ok to go home will follow up in Outpatient basis.
[2019-12-05 19:37] VITALS: BP 84/55
[2019-12-05] MEDS: HYDROcodone/APAP 5/325MG 1 TAB TABLET PO PRN (21:16)
[2019-12-05 22:38] VITALS: BP 104/61
[2019-12-05] MEDS: MORPHINE SULFATE 4 MG/ML VIAL. IV PRN (23:18)
[2019-12-06] MEDS: MORPHINE SULFATE 4 MG/ML VIAL. IV PRN ×2 (01:19→03:26)
[2019-12-06 02:50] VITALS: BP 84/46
[2019-12-06] MEDS: HYDROcodone/APAP 5/325MG 1 TAB TABLET PO PRN ×2 (05:26→13:07)
[2019-12-06 07:00] VITALS: BP 111/70
[2019-12-06] MEDS: IBUPROFEN 400 MG TABLET. PO PRN ×2 (07:29→14:12)
[2019-12-06] MEDS: INSULIN LISPRO 300 UNITS/3 ML VIAL. SQ SCH ×2 (07:30→11:30)
[2019-12-06] MEDS: ASPIRIN CHEWABLE 81 MG TABLET. PO SCH (08:28)
[2019-12-06] MEDS: DOCUSATE SODIUM 100 MG CAPSULE. PO SCH (08:28)
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
[2019-12-06 11:00] VITALS: BP 96/71
[2019-12-06] MEDS ORDERED: HYDR-3164 PO (14:47)
[2019-12-06] MEDS ORDERED: FENT1PAT15 TD (14:47)
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
[2019-12-06 15:00] VITALS: BP 98/72
--- NOTE | 2019-12-06 15:03 | SNU/HH DC ---
DISCHARGE WITH HOME HEALTH DISCHARGE INFORMATION: Discharge Date: December 06, 2019 Final Diagnosis: Problems Medical Problems: (1) Compression fracture of L4 vertebra Status: Acute (2) Low back pain Status: Acute (3) Metastatic neoplastic disease Status: Acute (4) Right flank pain Status: Acute Condition on Discharge: Stable CODE STATUS: Code Status: Full HOME HEALTH: Face to Face: I certify this patient is under my care and that I, or a nurse practitioner or physician's perioperative assistant working with me, had a face to face encounter that meets the physician face to face encounter requirements with this patient on 12/06/2019. Medical Complications: Other (Metastatic melanoma) [facility] For: Assess/Skilled Observatio, Medication Management RN For Eval/Treatment: Yes Physical Therapy For: Evalulation/Treatment Occupational Therapy For: Evaluation/Treatment Pt Meets Homebound Status: Fatigue w/ amb., Poor cognition POST DISCHARGE ORDERS: Activity Instructions for Disc: Activity as tolerated, Avoid exertion Weight Bearing Status after Di: As tolerated DIET AFTER DISCHARGE: Regular Wound/Incision Care: Ice to area for comfort CHECKS AFTER DISCHARGE: Checks after discharge: Check blood press - daily Comment: L4 FOLLOW-UP: Follow up with: Dr Jonas - Hematology Oncology 12/11/2019 at 10:00am CERTIFICATION STATEMENT: Certification Statement: Certification Statement: Based on the above finding, I certify that this patient is confined to the home and needs intermittent fpc care, physical therapy and/or speech therapy, or continues to need occupational therapy.~ This patient is under my care, and I have initiated the establishment of the plan of care.~ This patient will be followed by myself or a community physician who will periodically review the plan of care. Home Meds Active Scripts Fentanyl (FENTANYL 25mcg/hr) 1 Each Patch.td72, 1 PATCH TD Q72H for Bony metastatic pain for 30 Days, #10 PATCH Prov:FITZ ISRAEL MD 12/06/19 Hydrocodone/Apap 5-325 ([place] 5-325 TABLET) 1 Each Tablet, 1 TAB PO Q4-6HRS for pain for 30 Days, #120 TAB Prov:FITZ ISRAEL MD 12/06/19 Reported Medications Docusate Sodium (COLACE) 100 Mg Capsule, 1 CAP PO BID for constipation, #30 CAP 03/07/19 Ibuprofen (IBUPROFEN) 400 Mg Tablet, 400 MG PO PRN Q6HRS PRN for INFLAMMATION, TAB 03/07/19 Atorvastatin Calcium (ATORVASTATIN CALCIUM) 20 Mg Tablet, 1 TAB PO DAILY for CHOLESTEROL, #30 TAB 5 Refills 03/07/19 Aspirin (ASPIRIN) 81 Mg Tab.chew, 1 TAB PO DAILY for HEART, #30 TAB 3 Refills 03/07/19 Metformin Hcl (METFORMIN HCL) 500 Mg Tablet, 500 MG PO BIDWMEALS for ANTI- DIABETIC, TAB 0 Refills 03/07/19 FITZ ISRAEL MD December 06, 2019 15:03
--- NOTE | 2019-12-06 16:13 | NUR ---
Pt. discharged to home with HH, pt's sister in law Dilcia Quintanilla verbalized understanding of instructions over the phone.
== END 2019-12-06 17:23 | disposition home health service (06) | DRG 478 ==
LOC: ER 20:31 → 4 NORTH 23:27
PROVIDERS: ADMIT Internal Medicine; ATTEND Internal Medicine
PROC: 0QB03ZX Excision of Lumbar Vertebra, Percutaneous Approach, Diagnostic (ICD-10-PCS; 2019-11-23)
PROC: 0QS03ZZ Reposition Lumbar Vertebra, Percutaneous Approach (ICD-10-PCS; 2019-11-23)
PROC: 0QU03JZ Supplement Lumbar Vertebra with Synthetic Substitute, Percutaneous Approach (ICD-10-PCS; 2019-11-23)
PROC: 02H633Z Insertion of Infusion Device into Right Atrium, Percutaneous Approach (ICD-10-PCS; principal; 2019-12-05)
PROC: B5181ZA Fluoroscopy of Superior Vena Cava using Low Osmolar Contrast, Guidance (ICD-10-PCS; 2019-12-05)
PROC: B548ZZA Ultrasonography of Superior Vena Cava, Guidance (ICD-10-PCS; 2019-12-05)
DX: M84.48XA Pathological fracture, other site, initial encounter for fracture (principal); E87.1 Hypo-osmolality and hyponatremia; C78.00 Secondary malignant neoplasm of unspecified lung; C90.00 Multiple myeloma not having achieved remission; C43.9 Malignant melanoma of skin, unspecified; E11.9 Type 2 diabetes mellitus without complications; E78.5 Hyperlipidemia, unspecified; E87.6 Hypokalemia; G89.3 Neoplasm related pain (acute) (chronic); I10 Essential (primary) hypertension; K40.20 Bilateral inguinal hernia, without obstruction or gangrene, not specified as recurrent; K57.30 Diverticulosis of large intestine without perforation or abscess without bleeding; K76.9 Liver disease, unspecified; M47.812 Spondylosis without myelopathy or radiculopathy, cervical region; Z80.1 Family history of malignant neoplasm of trachea, bronchus and lung; Z80.7 Family history of other malignant neoplasms of lymphoid, hematopoietic and related tissues; Z85.820 Personal history of malignant melanoma of skin; Z87.820 Personal history of traumatic brain injury; Z20.828 Contact with and (suspected) exposure to other viral communicable diseases
CPT/HCPCS: 20225; 22514; 36415; 36561; 71250; 72125; 72128; 72131; 74176; 76937; 76942; 77001; 80048; 80053; 81001; 82378; 82962; 85025; 85610; 85730; 86301; 88307; 88311; 88341; 88342; 96361; 96374; 96375; 99152; 99153; 99285; C1713; C1751; C1758; C1892; G0103; J0690; J1650; J1815; J1885; J2250; J2270; J2405; J3010; J3490; J7030; Q9966; G0378; U0003-CS